=== PATIENT | male | born 1950 | race Caucasian/White ===

== ENCOUNTER 2022-10-28 22:06 | Inpatient (IN) | payer MEDICARE, OTHER, SELFPAY ==
--- NOTE | ~2022-10-28 | CT_ITS ---
EXAMINATION: CT ABDOMEN AND PELVIS WITH AND WITHOUT CONTRAST: CT GI BLEEDING STUDY CLINICAL INFORMATION: rectal bleeding s/p polyp removal 5 days ago COMPARISON: No pertinent prior studies are available for comparison. TECHNIQUE: Multidetector volumetric imaging was performed from the lung bases to the pubic symphysis before and after the administration of: Intravenous contrast: 100 mL Omnipaque 350 arterial phase and 2 minute delayed postcontrast images were obtained. No contrast reaction reported. This CT examination was performed using dose optimization techniques as appropriate, variously including the following: *Automated exposure control *Adjustment of mA and/or kV according to patient size (this includes techniques or standardized protocols for targeted exams where dose is matched to indication/reason for exam; i.e. extremities or head) *Use of iterative reconstruction technique FINDINGS: STOMACH: Large volume of fluid and ingested material within the stomach. No abnormal contrast accumulation. SMALL BOWEL: There is wall thickening of the small bowel in the left abdomen, of uncertain clinical significance. This could be secondary to ascites. It may also represent a normal appearance of collapsed jejunum. Hypoproteinemic states could give this appearance as well. No abnormal contrast accumulation within the small bowel to suggest active small bowel hemorrhage at the time of the scan. COLON: Moderate volume of stool in the proximal colon. There is high density fluid in the sigmoid colon and rectum measuring 50 Hounsfield units precontrast. Acute hemorrhage could have this appearance but ingested material could give this appearance as well. There is streak artifact from linear metallic clip in the rectum presumably the site of prior polypectomy. Scattered colonic diverticula are present. No evidence of acute diverticulitis. On the arterial phase images, there is multifocal lobular mucosal enhancement particularly of the anterior wall of the distal rectum extending along the anus. The appearance and distribution are typical for hemorrhoids particularly given other findings of cirrhosis and portal hypertension. On delayed images the enhancement is less well-defined but there is no clear intraluminal pooling of contrast to suggest active bleeding at the time of the scan. LUNG BASES: No focal consolidation or mass. Right gynecomastia. Normal heart size. PLEURA: Small left pleural effusion. LIVER, GALLBLADDER, AND BILIARY TREE: Shrunken in nodular liver consistent with cirrhosis. There are a few nonspecific areas of low density. The gallbladder is distended with dependent gallstones. Moderate to large volume of ascites is present throughout the abdomen and dependently in the pelvis. PANCREAS: Normal; no mass or surrounding fluid. SPLEEN: Normal size. No focal lesion. ADRENAL GLANDS: Normal; no mass. KIDNEYS AND URETERS: Symmetric bilateral renal enhancement. No hydronephrosis, calculi, or solid mass. ABDOMINAL WALL: There is a fluid-filled right inguinal hernia with the right inguinal canal dilated to 5.7 cm transversely. LYMPHOVASCULAR STRUCTURES: Normal caliber aorta with moderate calcified atherosclerotic changes. 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 There is a spontaneous left splenorenal shunt. No portal vein thrombosis seen. The splenic vein is patent. There is a small recanalized paraumbilical vein. There are splenic and gastric varices. There are anterior abdominal omental varices. BLADDER: No focal mass or wall thickening seen. No bladder calculi. PELVIC VISCERA: Unremarkable. OSSEOUS STRUCTURES: No acute or suspicious osseous abnormality. CT/CT gi bleed abd pel wo/w IVcon IMPRESSION: No accumulation of contrast within the lumen of the bowel to suggest active GI bleeding at the time of the scan. Marked findings of cirrhosis and portal hypertension with moderate to large volume of ascites and extensive varices. There is mucosal enhancement of the distal rectum extending along the anal canal as well. The appearance and distribution particularly in the setting of cirrhosis and portal hypertension suggest hemorrhoids. Presumably these were visible on the prior colonoscopy. Recommend correlation with prior colonoscopy results. Nevertheless, no extravasated intraluminal contrast is visible. There is a metallic clip in the left posterior rectum which is presumably from the prior polypectomy. There is high density fluid in the sigmoid colon and rectum. The density could be seen with blood products but other material could have this appearance as well. Nonspecific small bowel wall thickening could be secondary to the ascites or low albumin among other etiologies. Given the patient's cirrhosis, screening for hepatocellular carcinoma with contrast-enhanced CT or MRI should be considered when the patient's acute clinical issues have improved.
[2022-10-28 22:20] VITALS: BP 122/81; BP 90/75; PULSE 109; PULSE 123; RESP 17; TEMP 37.2; O2SAT 96; O2SAT 97; BMI 23.7
--- NOTE | 2022-10-28 22:26 | ECG_ITS ---
Test Reason : cp Blood Pressure : / mmHG Vent. Rate : 113 BPM Atrial Rate : 113 BPM P-R Int : 138 ms QRS Dur : 064 ms QT Int : 316 ms P-R-T Axes : 021 -21 024 degrees QTc Int : 433 ms Sinus tachycardia Low voltage QRS Inferior infarct , age undetermined Abnormal ECG No previous ECGs available Referred By: Stacie Jacobs Electronically Signed By:JAMES BENNETT
[2022-10-28] MEDS: 0.9 % Sodium Chloride 1,000 ML 999 ML IVCONT (22:32)
--- NOTE | 2022-10-28 22:34 | ED.GIBLEED ---
HPI - GI Bleed General Chief complaint: GI Bleed Stated complaint: Rectal Bleed Time Seen by Provider: 10/28/22 22:16 Source: patient Mode of arrival: EMS Limitations: no limitations History of Present Illness HPI Narrative: Patient comes to the emergency room via ambulance complaining of rectal bleeding. He patient states that approximately 4 days ago, patient had a colonoscopy done a [facility]. Patient states that the polyp was found, had some gage and was discharged home. Patient states that he has been doing well for the last 4 days. This afternoon, patient was at home, thought that he had diarrhea, went to the bathroom, patient did not pass any stool, however he was having rectal bleeding. Patient states it lasted approximately 10-15 minutes of continued dripping. Patient denies any history of hemorrhoids. Patient eyes any abdominal pain. Patient reports that when EMS got to him, when he stood up trying to move into the stretcher, he had a syncopal/near syncopal episode for a few seconds. Patient denies being on any blood thinners. At this time, patient states that he feels relatively well, no dizziness, no chest pain or shortness of breath, no abdominal pain, no rectal pain. Related Data Allergies Allergy/AdvReac Type Severity Reaction Status Date / Time No Known Allergies Allergy Verified 10/28/22 22:26 Review of Systems Review of Systems: Constitutional : No Weight loss, No Fever, No Chills, No Night Sweats, No Fatigue, No Malaise ENT/Mouth : No Hearing loss, No Ear Pain, No Nasal Congestion, No Sinus Pain, No Hoarseness, No sore throat, No Rhinorrhea, No Swallowing Difficulty Eyes: No Eye Pain, No Swelling, No Redness, No Foreign Body, No Discharge, No Vision Changes Cardiovascular : No Chest Pain, No SOB, No Dyspnea on Exertion, No Orthopnea, No Edema, No Palpitations, complaining of a near syncopal/syncopal episode. Respiratory : No Cough, No Sputum, No Wheezing, No Smoke Exposure, No Dyspnea Gastrointestinal : No Nausea, No Vomiting, No Diarrhea, No Constipation, No abdominal Pain, complaining of profuse rectal bleeding Genitourinary : no irregular bleeding, No Dysuria, No Urinary Frequency, No Hematuria, No Urinary Incontinence, No Urgency, No Flank Pain, No Urinary Flow Changes, No Hesitancy Musculoskeletal : No joint pain, No Myalgias, No Joint Swelling Skin : No Skin Lesions, No rash Neuro : No Weakness, No Numbness, No Paresthesias, No Loss of Consciousness, No Dizziness, No Headache Psych : No Anxiety/Panic, No Depression, No SI/HI/AH/VH, No Social Issues, Heme/Lymph: No Bruising, No Bleeding,No Lymphadenopathy Endocrine : No Polyuria, No Polydipsia, No Temperature Intolerance [facility] Past Medical History Medical History Alcohol abuse Cirrhosis Social History Social History Alcohol intake: current Alcohol intake frequency: a few times a week Alcohol type: wine Smoked in Last 30 Days: No Use of substances other than those prescribed or required for medical reasons: No Advance Directives: Yes Advance Directives Information Provided: No Advance Directives on File: No Physical Exam Vital Signs: Vital Signs: Last Vital Signs Temp 98.9 F 10/28/22 22:20 Pulse 115 H 10/29/22 01:01 Resp 19 10/29/22 01:01 BP 142/85 H 10/29/22 01:01 Pulse Ox 97 10/29/22 01:01 O2 Del Method 10/29/22 01:01 BMI result Body Mass Index 23.7 Const: Other: Appearance: Alert. Oriented X3. No acute distress. Eyes: Pupils equal, round and reactive to light. ENT: Pharynx normal. Neck: Normal inspection. Neck supple. No lymph nodes noted. No crepitus CVS: Tachycardic in the 110s, regular rhythm. Pulses normal. Normal S1 and S2 Respiratory: No respiratory distress. Breath sounds normal. No Wheezing. No rales Abdomen: Soft , nontender, slightly distended, no rigidity. On digital rectal exam, patient had fresh blood per rectum, no external hemorrhoids, low suspicion for internal hemorrhoids Skin: Skin warm and dry. Normal skin color. Normal skin turgor. Extremities: No lower extremity edema. No Lacerations. No Rash Neuro: Oriented X 3. No motor deficit. No sensory deficit. Moving all extremities. No slurred speech. CN 2 through 12 grossly intact Psych: calm, cooperative, normal affect Course Course Course Narrative: All of patient's labs and imaging are pending, on physical exam, there was bright red blood per rectum. At this time, patient is asymptomatic. I discussed the patient with Dr. Arboleda, recommendations: 10 mg IV vitamin K, 2 units of fresh frozen plasma, and 1 unit of packed red blood cells. I discussed with the patient the risks versus benefits of a blood transfusion. Patient is agreeable to receive blood. Patient states that several years ago when he had an ulcer, he received up to 8 units of blood. Medications Administered Discontinued Medications Generic Name Dose Route Start Last Admin Trade Name Freq PRN Reason Stop Dose Admin Sodium Chloride 1,000 mls @ 999 mls/hr 10/28/22 22:26 10/28/22 23:34 Ns IVCONT 10/28/22 23:26 Infused .Q1H1M ONE Infusion Iohexol 80 ml 10/29/22 00:05 10/29/22 00:13 Iohexol 350 Mg/Ml 100 Ml Infus..Btl IV 10/29/22 00:06 80 ml ONCE ONE Administration Medical Decision Making Medical Decision Making Differential Diagnoses: Differential diagnosis (Lower GI bleed, internal hemorrhoids) Consideration of admission/observation: Consideration of Admission/Observation (Patient had a near syncopal episode, and a GI bleed. I discussed with the patient that I recommend admission, patient and his agreeable with plan) Discussion of management with other physician/healthcare provider/other source (e.g., hospitalist, product support consultant, behavioral health): Discussion w/other physician/healthcare provider (I discussed the patient with Dr. Ponce, we both agree that patient would benefit from a blood transfusion, furthermore, Dr. Arboleda recommends given 2 units of fresh frozen plasma, 10 units of vitamin K IV) Management of the patient was discussed with: Hospitalist (I also discussed with Dr. Jacobs physician with Dr. Arboleda, patient to be admitted.) and [employer] My interpretation is Lab Attestation: I reviewed the patient's lab results. (Patient's hemoglobin dropped from 14.1 from May of 2022 from [facility] records down to 10.8, INR is 1.5, elevated likely secondary to alcoholism) Independent interpretation of EKG, rhythm strip, radiology study: Independent interp EKG,rhythm strip, radiology study I performed an independent interpretation of the: EKG My interpretation is sinus tachycardia, heart rate 113, no ST segment depression or elevation, no T-wave inversion, QTC 433 Non-ED record review: Review of External (Non-ED) Record External record reviewed:: Outpatient record (We received records from [facility], I reviewed personally the records, patient's last hemoglobin was 14, dropped 4 points since May. We also have the gastroenterology report available) Critical Care Time Critical Care Time Critical Care Time: Yes Total Critical Care Time: 60 Attestation: I have personally provided critical care time. Time includes review of lab data, radiology results, discussion with consultants, and monitoring for potential decompensation. Intervention performed as documented. Discharge Plan Discharge Clinical Impression: Lower gastrointestinal hemorrhage, Anemia Patient Disposition: Admitted As Inpatient
--- NOTE | 2022-10-28 22:38 | PC.NURSE ---
Witnessed Dr Watkins perform rectal exam.
[2022-10-28 23:00] LABS: OBS Int Ctl Valid YES; OBS1 POSITIVE (NEGATIVE)
[2022-10-28 23:00] LABS: Basophils Absolute Auto 0.2 X10*3/uL (0.0-0.2); Basophils Percent Auto 1.3 % (0-2); Eosinophils Absolute Auto 0.2 X10*3/uL (0.0-0.4); Eosinophils Percent Auto 1.3 % (0-4); Hematocrit 30.5 % (42.0-52.0); Hemoglobin 10.8 g/dl (14.0-18.0); Imm Gran Abs Auto 0.06 X10*3/uL (0.00-0.03); Imm Gran Pct Auto 0.5 % (0.0-0.4); Lymphocytes Absolute Auto 1.1 X10*3/uL (1.2-4.9); Lymphocytes Percent Auto 8.5 % (20-40); MANUAL DIFF FLAG SCAN; Mean Corpuscular HGB Conc 35.4 g/dl (31.0-36.0); Mean Corpuscular Hemoglobin 34.4 pg (27.0-33.0); Mean Corpuscular Volume 97.1 fL (80.0-98.0); Mean Platelet Volume 9.7 fL (9.4-12.4); Monocytes Absolute Auto 1.9 X10*3/uL (0.1-1.2); Monocytes Percent Auto 14.3 % (2-11); Neutrophils Absolute Auto 9.6 x10*3/uL (2.0-8.3); Neutrophils Percent Auto 74.1 % (45-73); Platelet Count 228 X10*3/uL (160-400); Red Blood Count 3.14 X10*6/uL (4.60-5.80); Red Cell Distribution Width 12.7 % (11.0-16.0); SCAN SMEAR FLAG 1; White Blood Count 12.9 X10*3/uL (4.8-10.8)
[2022-10-28 23:05] LABS: INTERNATIONAL NORM RATIO 1.5 (0.9-1.1); Prothrombin Time 17.6 SEC (10.0-13.1)
[2022-10-28 23:13] LABS: COVID-19 Test Negative (Negative); IDNOW Serial# 55D5AD1C
[2022-10-28 23:15] LABS: Ethanol 186 mg/dL
[2022-10-28 23:20] LABS: SLIDE REVIEW VERIFIED
[2022-10-28 23:21] LABS: Alanine Aminotransferase 23 U/L (0-40); Albumin Level 2.9 g/dL (3.5-5.0); Alkaline Phosphatase 162 U/L (39-117); Anion Gap 14 (12-20); Aspartate Amino Transferase 58 U/L (5-37); Bilirubin Direct 1.7 mg/dL (0.0-0.5); Blood Urea Nitrogen 15 mg/dL (9-16); Calcium 8.5 mg/dL (8.4-10.2); Carbon Dioxide 19 mmol/L (22-29); Chloride 104 mmol/L (96-108); Creatinine Clr Calc Pharmacy 84.1; Estimated Glomerular Filt Rate > 60; Glucose Random 119 mg/dL (60-115); Lipase 63 U/L (8-78); Magnesium 1.6 mg/dL (1.6-2.6); Potassium 4.4 mmol/L (3.3-5.1); Sodium 133 mmol/L (135-145); Total Protein 6.6 g/dL (6.5-8.0)
[2022-10-28 23:25] LABS: Troponin-I High Sensitivity 3.7 ng/L (<3.5-35.0)
[2022-10-29] VITALS (18 sets, daily range): BP systolic 116–142; BP diastolic 50–85; PULSE 86–133; RESP 12–19; TEMP 36.4–37.7; O2SAT 94–97; BMI 24.0
--- NOTE | 2022-10-29 | ECG_ITS ---
Test Reason : TACHYCARDIA Blood Pressure : / mmHG Vent. Rate : 102 BPM Atrial Rate : 102 BPM P-R Int : 168 ms QRS Dur : 072 ms QT Int : 352 ms P-R-T Axes : 047 -12 034 degrees QTc Int : 458 ms Sinus tachycardia Low voltage QRS Cannot exclude old inferior infarct Borderline ECG No significant changes when compared with the previous EKG of 28 oct 2022 Referred By: Stacie Jacobs Electronically Signed By:JAMES BENNETT
[2022-10-29] MEDS: iohexoL 350 MG/ML 100 ML INFUS..BTL 80 ML IV (00:13)
--- OUTSIDE RECORDS SUMMARY | 2022-10-29 00:27 | XMS_ITS | Continuity of Care Document ---
:1950 Author Organization Address [address] [place] [id number]- Care Team Providers Name Role Phone Jeff FLOYD, Ashutosh Delcid Primary Care Physician Encounter [facility] [place] Date(s): 11/20/19 - 11/24/[address] [address]- [facility] Encounter Diagnosis Sinus tachycardia (Final) - 11/19/19 GI bleed (Final) - 11/21/19 Discharge Disposition: A-D/C Home Attending Physician: Long Benedict MD Admitting Physician: Kate FLOYD, Gianfranco Conway Referring Physician: Not on Staff, Referring MD Allergies, Adverse Reactions, Alerts Substance Reaction Severity Status NKA Active Medications folic acid 1 mg oral tablet 1 mg, 1, tablet, By Mouth, Daily, # 30 tablet, Refills 0, Tot. Refills 0, Maintenance, 11/24/19 12:16:00 EST, Route to Pharmacy Electronically, [facility], 180, cm, 11/22/19 6:10:00 EST, Height, 77, kg, 11/20/19 3:52:00 EST, Dry Weight Start Date: 11/24/19 Status: OrderedLasix 40 mg oral tablet 40 mg, 1, tablet, By Mouth, Every other day, # 30 tablet, Refills 0, Maintenance, 11/19/19 20:09:00 EST Start Date: 11/19/19 Status: Orderedmultivitamin Multiple Vitamins oral tablet, chewable 1 tablet, By Mouth, Daily, # 90 tablet, 0 Refills, Maintenance, 11/24/19 12:16:00 EST, Chew Tablet, [facility], 1 tablet By Mouth Daily, 180, cm, 11/22/19 6:10:00 EST, Height, 77, kg, 11/20/19 3:52:00 EST, Dry Weight Start Date: 11/24/19 Status: Orderedpantoprazole 40 mg oral delayed release tablet = 40 mg, By Mouth, 2 times a day, # 60 tablet, 0 Refills, Maintenance, 11/24/19 12:16:00 EST, EC Tablet, 180, cm, 11/22/19 6:10:00 EST, Height, 77, kg, 11/20/19 3:52:00 EST, Dry Weight Start Date: 11/24/19 Status: OrderedTaltz Autoinjector 80 mg/mL subcutaneous solution = 160 mg, Subcutaneous Injection, Once, # 2 mL, 0 Refills, Maintenance, 11/19/19 20:09:00 EST, Solution Start Date: 11/19/19 Status: Orderedthiamine 100 mg oral tablet 100 mg, 1, tablet, By Mouth, Daily, # 90 tablet, Refills 0, Tot. Refills 0, Maintenance, 11/24/19 12:16:00 EST, Route to Pharmacy Electronically, [facility], 180, cm, 11/22/19 6:10:00 EST, Height, 77, kg, 11/20/19 3:52:00 EST, Dry Weight Start Date: 11/24/19 Status: Ordered Results Orders for Microbiology Reports Name Date Anaerobic Culture 11/22/19 Sterile Body Fluid Culture W/ Gram Smear 11/22/19 Microbiology Reports TEST:Anaerobic Culture STATUS:Unauthenticated BODY SITE: SOURCE:BODY F COLLECTED DATE/TIME:11/22/19 9:00 PMAnaerobic Culture SPECIMEN DESCRIPTION : BODY FLUID PERITONEUM SPECIAL REQUESTS : NONE CULTURE : NO ANAEROBES ISOLATED SO FAR. REPORT STATUS : PRELIMINARY REPORT TEST:Sterile Fluid Culture STATUS:Unauthenticated BODY SITE: SOURCE:[place] COLLECTED DATE/TIME:11/22/19 9:00 PMSterile Fluid Culture SPECIMEN DESCRIPTION : Peritoneal fluid SPECIAL REQUESTS : NONE GRAM STAIN : 2+ POLYMORPHONUCLEAR LEUKOCYTES NO ORGANISMS SEEN CULTURE : NO GROWTH TO DATE REPORT STATUS : PRELIMINARY REPORT Radiology Reports Exam Date Time Procedure Performing Provider Status 11/19/19 11:28 PM Chest 2 Views Frontal and Lat Cisco Higgins; Auth (Verified) Notes:(Chest 2 Views Frontal and Lat) Reason For Exam: Abdominal PainRESULT: Chest 2 Views Frontal and Lat Chest 2 Views Frontal and Lat Reason: Abdominal Pain; Clinical Question(s): Other:; Abd Free Air; Hx of Present Illness: HAD COLONOSCOPY WITH POLEP REMOVAL TODAY , NOW HAS RECTAL BLEEDING AND CRAMPING . ALSO FEELS LIGHTHEADED; Other Objective Findings: ALERT, SKIN W D SLIGHTLY SALLOW. SPEAKING IN FULL SENTENCES. ABD SOFT TENDER LOWER ABD LIKE GAS DENIES N V D. . DENIES FEVER CHILLS COMPARISON: None. FINDINGS: LINES AND TUBES: None. LUNGS AND PLEURA: Clear lungs. Normal pulmonary vascularity. No pleural effusion. No pneumothorax. HEART, MEDIASTINUM AND CALLUM: Heart is normal in size. Normal mediastinal and hilar contour. BONES AND SOFT TISSUES: No acute abnormality. There is mild thoracic disc space narrowing. No pneumoperitoneum. IMPRESSION: No acute abnormality. No pneumoperitoneum. WSN: [id number] Dictated By: Coy Lewis MD Dictated Date/Time: 11/19/19 11:38 p Reviewed By: Coy Lewis MD Signed By: Coy Lewis MD Signed Date/Time: 11/19/19 11:38 pm Transcribed By: REBA Transcribed Date/Time: 11/19/19 11:38 pm Vital Signs Most recent to oldest 1 2 3 [Reference Range]: Height 180 cm 180 cm 180 cm (11/22/19 6:10 AM) (11/21/19 11:50 PM) (11/20/19 5:15 AM) Weight 85.8 kg 77 kg 80.4 kg (11/21/19 11:50 PM) (11/20/19 3:52 AM) (11/19/19 8:1 2 PM) Oxygen Saturation [94-100 %] 99 % 98 % 99 % (11/24/19 7:00 AM) (11/24/19 4:00 AM) (11/23/19 11:00 PM) Pulse Rate [55-90 bpm] 75 bpm 88 bpm 89 bpm (11/24/19 7:00 AM) (11/24/19 4:00 AM) (11/23/19 11:00 PM) Body Mass Index [18.5-24.99] 26.48 23.77 *H* (11/20/19 3:52 AM) (11/21/19 11:50 PM) Blood Pressure [90-138/55-84 117/66 mm Hg 103/64 mm Hg 114 /72 mm Hg mm Hg] (11/24/19 7:00 AM) (11/24/19 4:00 AM) (11/23/19 11:00 PM) Respiratory Rate [16-30 18 br/min 18 br/min 18 br/mi n br/min] (11/24/19 7:00 AM) (11/24/19 4:00 AM) (11/23/19 11:00 PM) Temperature [96.8-100.4 97.6 DegF 98.3 DegF 99.2 Deg F DegF] (11/24/19 7:00 AM) (11/24/19 4:00 AM) (11/23/19 11:00 PM) Liters per Minute 4 L/min 4 L/min (11/22/19 5:00 PM) (11/22/19 4:03 PM) Mode of Delivery (Oxygen) Room air Room air Room a ir (11/24/19 7:00 AM) (11/24/19 4:00 AM) (11/23/19 11:00 PM) Blood pressure sites Arm, left Arm, right Arm, right (11/23/19 4:00 PM) (11/23/19 2:00 PM) (11/23/19 1:00 P M) Temperature Route Oral Oral Oral (11/24/19 7:00 AM) (11/24/19 4:00 AM) (11/23/19 11:00 PM) Dry Weight 77 kg 80.4 kg (11/20/19 3:52 AM) (11/19/19 8:12 PM) Weight Obtained Via Bed scale Standing scale (11/21/19 11:50 PM) (11/19/19 8:12 PM) Dry Weight Obtained Via Standing scale (11/19/19 8:12 PM) Sensory deficits None (11/20/19 3:52 AM) Mobility assistance Independent Independent Independent (11/23/19 7:29 AM) (11/23/19 7:00 AM) (11/22/19 8:00 P M)
--- OUTSIDE RECORDS SUMMARY | 2022-10-29 00:27 | XMS_ITS | Continuity of Care Document ---
:1950 Author Organization [facility] Address [address] [place] [id number]- Care Team Providers Name Role Phone Jeff FLOYD, Ashutosh Delcid Primary Care Physician Encounter [facility] [place] Date(s): 11/19/19 - 11/19/[address] [address] [facility] Discharge Disposition: A-D/C Home Attending Physician: Devang Mckeon MD Admitting Physician: Devang Mckeon MD Referring Physician: Devang Mckeon MD Allergies, Adverse Reactions, Alerts Substance Reaction Severity Status NKA Active Medications Lasix 40 mg oral tablet 40 mg, 1, tablet, By Mouth, Daily, # 30 tablet, Refills 0, Maintenance, 11/19/19 20:09:00 EST Start Date: 11/19/19 Status: Orderedomeprazole 20 mg oral enteric coated capsule 1 capsule = 20 mg, By Mouth, Daily, # 30 capsule, 0 Refills, Maintenance, 11/19/19 20:09:00 EST, EC Capsule Start Date: 11/19/19 Status: OrderedTaltz Autoinjector 80 mg/mL subcutaneous solution = 160 mg, Subcutaneous Injection, Once, # 2 mL, 0 Refills, Maintenance, 11/19/19 20:09:00 EST, Solution Start Date: 11/19/19 Status: Ordered Procedures Procedure Date Related Diagnosis Body Site Status Endoscopy of upper gastrointestinal 11/19/19 Completed tract and excision of polyp of duodenum Results Radiology Reports Exam Date Time Procedure Performing Provider Status 11/19/19 8:49 AM ERCP Both Ducts Eva Foss (Verified) Notes:(ERCP Both Ducts) Reason For Exam: ampullary villous adenomaRESULT: ERCP Both Ducts ERCP Both Ducts INDICATION/CLINICAL QUESTION: Reason: ampullary villous adenoma . COMPARISON: None TT:15 minutes FT: 0.2 seconds DAP: 0.6 mGy Total images: 1 TECHNIQUE: Intraprocedural spot radiographs were performed during ERCP performed by the gastroenterology service. No radiologist was in attendance FINDINGS: Shuttle Operator image was obtained and the procedure was terminated per ordering physician. IMPRESSION: ERCP was terminated per ordering physician. No radiologist was in attendance. Please see full ERCP report by the gastroenterology service for further details. I have personally reviewed the images and I agree with this report. WSN: [id number] Dictated By: Nneka Ovalle MD Dictated Date/Time: 11/19/19 9:54 am Reviewed By: Tuan Fox MD Signed By: Tuan Fox MD Signed Date/Time: 11/19/19 9:59 am Transcribed By: REBA Transcribed Date/Time: 11/19/19 9:13 am Vital Signs Most recent to oldest 1 2 3 [Reference Range]: Height 182.9 cm (11/19/19 7:41 AM) Weight 76.2 kg (11/19/19 7:41 AM) Oxygen Saturation [94-100 %] 99 % 99 % 99 % (11/19/19 9:41 AM) (11/19/19 9:36 AM) (11/19/19 9:20 AM) Pulse Rate [55-90 bpm] 80 bpm (11/19/19 7:41 AM) Body Mass Index [18.5-24.99] 22.78 (11/19/19 7:41 AM) Blood Pressure [90-138/55-84 160/89 mm Hg 159/88 mm Hg 164 /84 mm Hg mm Hg] *H* *H* *H* (11/19/19 9:41 AM) (11/19/19 9:36 AM) (11/19/19 9:20 AM) Respiratory Rate [16-30 16 br/min 16 br/min 20 br/mi n br/min] (11/19/19 9:41 AM) (11/19/19 9:36 AM) (11/19/19 9:20 AM) Temperature [96.8-100.4 98.1 DegF 97.9 DegF DegF] (11/19/19 9:20 AM) (11/19/19 7:41 AM) Mode of Delivery (Oxygen) Room air Room air (11/19/19 9:20 AM) (11/19/19 7:41 AM) Temperature Route Temporal (11/19/19 7:41 AM)
[2022-10-29 00:48] LABS: Hematocrit 27.1 % (42.0-52.0); Hemoglobin 9.6 g/dl (14.0-18.0)
[2022-10-29 00:54] LABS: Bilirubin Total 2.9 mg/dL (0.0-1.0)
[2022-10-29] MEDS: Phytonadione (Vit K1) 10 MG in 0.9 % Sodium Chloride 50 ML 51 MG IV (02:00)
[2022-10-29] MEDS: Thiamine HCL 100 MG in 0.9 % Sodium Chloride 100 ML 202 MG IV (02:16)
--- NOTE | 2022-10-29 02:50 | P.HPHOSP_ITS ---
History of Present Illness Date of Service: 10/29/22 Chief Complaint: GI bleed This is a 72-year-old male with pertinent history of alcohol use disorder with alcoholic cirrhosis who presents to the emergency department for evaluation of acute lower GI bleed. He had a colonoscopy on 10/24 when polypectomy was done. On the day of presentation, patient started having painless lower GI bleed. He saw bright red blood passing through rectum. Minimal abdominal discomfort. No fever, chills, chest discomfort, palpitation, shortness of breath, changes in urinary habits. Drank 2 glasses of wine on the day of presentation. No history of alcohol withdrawal. Patient states when EMS came and he tried to get up from seated position, he had dizziness/lightheadedness and almost passed out. Not on any blood thinners. Review of Systems ENT: Reports dizziness Cardiovascular: Cardiovascular: Reports no additional cardiovascular complaints Respiratory: Respiratory: Reports no additional respiratory complaints Gastrointestinal: Gastrointestinal: Reports hematochezia Genitourinary: Genitourinary: Reports no additional male genitourinary complaints Neurologic: Reports dizziness [facility] Medical History Alcohol abuse Cirrhosis Pertinent family history: No known medical history in family members Social History Alcohol intake: current Alcohol intake frequency: a few times a week Alcohol type: wine Smoked in Last 30 Days: No Use of substances other than those prescribed or required for medical reasons: No Advance Directives: Yes Advance Directives Information Provided: No Advance Directives on File: No Meds Allergies Allergy/AdvReac Type Severity Reaction Status Date / Time No Known Allergies Allergy Verified 10/28/22 22:26 Active Medications: Current Medications Folic Acid (Folic Acid 1 Mg Tablet) 1 mg PO DAILY MAX Thiamine HCl 100 mg/ Sodium (Chloride) 101 mls @ 202 mls/hr IV DAILY MAX Last Admin: 10/29/22 02:16 Dose: 202 mls/hr Lactulose (Lactulose 20 Gm/30 Ml Solution) 20 gm PO BID MAX Melatonin (Melatonin 3 Mg Tablet) 6 mg PO BEDTIME PRN PRN Reason: Insomnia Ondansetron HCl (Ondansetron Hcl 4 Mg/2 Ml Vial) 4 mg IVPUSH Q8H PRN PRN Reason: Nausea and Vomiting Pharmacy Consult (Consult Rx Perform Med Rec) 1 each MISCELLANE ONCE PRN PRN Reason: Consult order Sodium Chloride (0.9 % Sodium Chloride Flush 3 Ml Syringe) 3 ml IVFLUSH QSHIFT [facility] Physical Exam Vital Signs and Narrative: Vital Signs: Last Vital Signs Temp 98.3 F 10/29/22 02:35 Pulse 105 H 10/29/22 02:35 Resp 12 10/29/22 02:35 BP 133/74 10/29/22 02:35 Pulse Ox 97 10/29/22 01:01 O2 Del Method 10/29/22 01:01 BMI result Body Mass Index 23.7 Middle-aged male lying in bed in no distress Neck supple, no JVD Tachycardic with regular rhythm, S1-S2 heard Regular breath sounds bilaterally, no wheezing or crackles appreciated Abdomen soft nontender, no guarding, no rigidity Patient is awake, alert and oriented to self, place, time and person ; no focal motor deficit Psych: Normal mood No pedal edema Results Labs CBC and Chem 7: 10/29/22 00:36 10/28/22 22:40 Labs: Laboratory Results - last 24 hr 10/28/22 10/28/22 10/28/22 22:40 22:40 22:40 MCV 97.1 MCH 34.4 H MCHC 35.4 RDW 12.7 Plt Count 228 MPV 9.7 Immature Gran % (Auto) 0.5 H Neut % (Auto) 74.1 H Lymph % (Auto) 8.5 L Hardin % (Auto) 14.3 H Eos % (Auto) 1.3 Baso % (Auto) 1.3 Lymph # (Auto) 1.1 L Hardin # (Auto) 1.9 H Eos # (Auto) 0.2 Baso # (Auto) 0.2 Abs Immat Gran (auto) 0.06 H Absolute Neuts (auto) 9.6 H Absolute Nucleated RBC 0.000 Nucleated RBC % (auto) 0.0 Smear Tech's Comments VERIFIED PT 17.6 H INR 1.5 H Anion Gap 14 Estim Creat Clear Calc 84.1 Estimated GFR > 60 Random Glucose 119 H Calcium 8.5 Magnesium 1.6 Total Bilirubin 2.9 H Direct Bilirubin 1.7 H AST 58 H ALT 23 Alkaline Phosphatase 162 H Troponin I High Sens Total Protein 6.6 Albumin 2.9 L Lipase 63 Stool Occult Blood Ethyl Alcohol COVID-19 (VENESSA) COVID-19 Clin Com Blood Type Antibody Screen Crossmatch 10/28/22 10/28/22 10/28/22 22:40 22:40 22:40 MCV MCH MCHC RDW Plt Count MPV Immature Gran % (Auto) Neut % (Auto) Lymph % (Auto) Hardin % (Auto) Eos % (Auto) Baso % (Auto) Lymph # (Auto) Hardin # (Auto) Eos # (Auto) Baso # (Auto) Abs Immat Gran (auto) Absolute Neuts (auto) Absolute Nucleated RBC Nucleated RBC % (auto) Smear Tech's Comments PT INR Anion Gap Estim Creat Clear Calc Estimated GFR Random Glucose Calcium Magnesium Total Bilirubin Direct Bilirubin AST ALT Alkaline Phosphatase Troponin I High Sens 3.7 Total Protein Albumin Lipase Stool Occult Blood Ethyl Alcohol 186 COVID-19 (VENESSA) Negative COVID-19 Clin Com See Note Blood Type Antibody Screen Crossmatch 10/28/22 10/28/22 22:49 22:49 MCV MCH MCHC RDW Plt Count MPV Immature Gran % (Auto) Neut % (Auto) Lymph % (Auto) Hardin % (Auto) Eos % (Auto) Baso % (Auto) Lymph # (Auto) Hardin # (Auto) Eos # (Auto) Baso # (Auto) Abs Immat Gran (auto) Absolute Neuts (auto) Absolute Nucleated RBC Nucleated RBC % (auto) Smear Tech's Comments PT INR Anion Gap Estim Creat Clear Calc Estimated GFR Random Glucose Calcium Magnesium Total Bilirubin Direct Bilirubin AST ALT Alkaline Phosphatase Troponin I High Sens Total Protein Albumin Lipase Stool Occult Blood POSITIVE Ethyl Alcohol COVID-19 (VENESSA) COVID-19 Clin Com Blood Type AB Positive Antibody Screen NEGATIVE Crossmatch See Detail Imaging Radiologist's Impressions: Impressions Abdomen/Pelvis CT 10/29/22 00:05 IMPRESSION: No accumulation of contrast within the lumen of the bowel to suggest active GI bleeding at the time of the scan. Marked findings of cirrhosis and portal hypertension with moderate to large volume of ascites and extensive varices. There is mucosal enhancement of the distal rectum extending along the anal canal as well. The appearance and distribution particularly in the setting of cirrhosis and portal hypertension suggest hemorrhoids. Presumably these were visible on the prior colonoscopy. Recommend correlation with prior colonoscopy results. Nevertheless, no extravasated intraluminal contrast is visible. There is a metallic clip in the left posterior rectum which is presumably from the prior polypectomy. There is high density fluid in the sigmoid colon and rectum. The density could be seen with blood products but other material could have this appearance as well. Nonspecific small bowel wall thickening could be secondary to the ascites or low albumin among other etiologies. Given the patient's cirrhosis, screening for hepatocellular carcinoma with contrast-enhanced CT or MRI should be considered when the patient's acute clinical issues have improved. Assessment and Plan (1) Lower gastrointestinal hemorrhage: Status: Acute (2) Anemia: Status: Acute (3) Alcohol abuse: Status: Acute (4) Cirrhosis: Status: Acute Plan This is a 72-year-old male with pertinent history of alcohol use disorder with a lcoholic cirrhosis who presents to the emergency department for evaluation of acute lower GI bleed. #. Acute GI bleed: Will admit with cardiac rn. Gastroenterology was consulted from the ER, appreciate assistance. Vitamin K, IV crystalloids given in the ER. Ordered FFP and 1 unit PRBC as per GI recommendations. Will keep NPO #. Presyncope in the setting of above #. Acute blood loss anemia: Closely monitor H&H #. Reactive leukocytosis #. Alcoholic cirrhosis: Will need paracentesis for ascites. Hold spironolactone. Initiated lactulose. #. Alcohol use disorder: Initiating thymine and folic acid. Monitor CIWA. Consulted CARE team and Addiction Team #. Essential hypertension: Hold amlodipine and diuretics Med rec pending DVT prophylaxis: Mechanical. Lovenox contraindicated in the setting of GI bleed NPO Full code Admit as inpatient and will require two night minimum hospital stay for close monitoring of hemodynamic status. GI consult pending Time Spent With Patient Time: Total time managing care of this patient today ____ minutes. Quality Stroke Does the patient have a stroke diagnosis?: No VTE Prior VTE?: No VTE Risk Level:: Medical - moderate - high VTE Device Contraindication: N/A - Device Ordered VTE Drug Contraindication: Treatment Not Indicated
[2022-10-29] MEDS: ondansetron HCL 4 MG/2 ML VIAL IVPUSH (03:07)
--- NOTE | 2022-10-29 03:26 | PC.NURSE ---
Will administer FFPs as soon as blood transfusion and med administration (thiamine) is complete.
[2022-10-29] MEDS: Pantoprazole Sodium 40 MG/10 ML VIAL 80 MG IVPUSH (03:39)
--- NOTE | 2022-10-29 04:37 | PC.NURSE ---
Delay in transfusing FFPs. Due to needing assistance to verify that transfusion was being done correctly (patient safety).
--- NOTE | 2022-10-29 06:05 | PC.NURSE ---
Verified with blood bank ([facility]) that AB neg FFP compatible with AB pos.
--- NOTE | 2022-10-29 06:34 | PC.NURSE ---
Notified Dr Jacobs that pt's HR is as high as 133 and also informed hospitalist that patient just had some more rectal bleeding and BP 130/80. Hospitalist ordered EKG. EKG to follow. Will continue to monitor.
--- NOTE | 2022-10-29 06:51 | PC.NURSE ---
Patient denies pain. Patient c/o of slight nausea. Patient continues to be tachypneic.
[2022-10-29 06:55] LABS: MANUAL DIFF FLAG NO
[2022-10-29 07:01] LABS: Basophils Absolute Auto 0.1 X10*3/uL (0.0-0.2); Basophils Percent Auto 0.9 % (0-2); Eosinophils Absolute Auto 0.1 X10*3/uL (0.0-0.4); Eosinophils Percent Auto 0.9 % (0-4); Hematocrit 26.4 % (42.0-52.0); Hemoglobin 9.3 g/dl (14.0-18.0); Imm Gran Abs Auto 0.04 X10*3/uL (0.00-0.03); Imm Gran Pct Auto 0.4 % (0.0-0.4); Lymphocytes Absolute Auto 0.6 X10*3/uL (1.2-4.9); Lymphocytes Percent Auto 6.5 % (20-40); Mean Corpuscular HGB Conc 35.2 g/dl (31.0-36.0); Mean Corpuscular Hemoglobin 33.1 pg (27.0-33.0); Mean Platelet Volume 9.3 fL (9.4-12.4); Monocytes Absolute Auto 1.5 X10*3/uL (0.1-1.2); Monocytes Percent Auto 16.1 % (2-11); Neutrophils Percent Auto 75.2 % (45-73); Platelet Count 149 X10*3/uL (160-400); Red Blood Count 2.81 X10*6/uL (4.60-5.80); Red Cell Distribution Width 13.9 % (11.0-16.0); White Blood Count 9.3 X10*3/uL (4.8-10.8)
[2022-10-29 07:37] LABS: Anion Gap 13 (12-20); Blood Urea Nitrogen 15 mg/dL (9-16); Calcium 8.6 mg/dL (8.4-10.2); Carbon Dioxide 21 mmol/L (22-29); Chloride 105 mmol/L (96-108); Creatinine Clr Calc Pharmacy 93.8; Estimated Glomerular Filt Rate > 60; Glucose Random 114 mg/dL (60-115); Potassium 4.8 mmol/L (3.3-5.1); Sodium 134 mmol/L (135-145)
--- NOTE | 2022-10-29 07:41 | PC.NURSE ---
[place] [facility] [place]
--- NOTE | 2022-10-29 08:20 | PHA.MEDREC ---
Pharmacy Consult ? Medication Reconciliation Pharmacy has completed the medication reconciliation.
[2022-10-29] MEDS: Lactulose 20 GM/30 ML SOLUTION PO (09:48)
[2022-10-29] MEDS: Folic Acid 1 MG TABLET PO (09:48)
[2022-10-29] MEDS: 0.9 % Sodium Chloride Flush 3 ML SYRINGE IVFLUSH ×3 (09:49→21:08)
[2022-10-29 13:34] LABS: Basophils Absolute Auto 0.1 X10*3/uL (0.0-0.2); Basophils Percent Auto 1.3 % (0-2); Eosinophils Absolute Auto 0.2 X10*3/uL (0.0-0.4); Eosinophils Percent Auto 1.6 % (0-4); Hemoglobin 10.1 g/dl (14.0-18.0); Imm Gran Abs Auto 0.04 X10*3/uL (0.00-0.03); Imm Gran Pct Auto 0.4 % (0.0-0.4); Lymphocytes Absolute Auto 0.7 X10*3/uL (1.2-4.9); Lymphocytes Percent Auto 7.6 % (20-40); MANUAL DIFF FLAG SCAN; Mean Corpuscular HGB Conc 36.1 g/dl (31.0-36.0); Mean Corpuscular Volume 94.3 fL (80.0-98.0); Mean Platelet Volume 9.6 fL (9.4-12.4); Monocytes Absolute Auto 1.8 X10*3/uL (0.1-1.2); Monocytes Percent Auto 18.9 % (2-11); Neutrophils Absolute Auto 6.7 x10*3/uL (2.0-8.3); Neutrophils Percent Auto 70.2 % (45-73); Platelet Count 166 X10*3/uL (160-400); Red Blood Count 2.97 X10*6/uL (4.60-5.80); Red Cell Distribution Width 14.4 % (11.0-16.0); SCAN SMEAR FLAG 1; White Blood Count 9.5 X10*3/uL (4.8-10.8)
[2022-10-29 13:40] LABS: INTERNATIONAL NORM RATIO 1.3 (0.9-1.1); Prothrombin Time 15.6 SEC (10.0-13.1)
[2022-10-29 13:52] LABS: SLIDE REVIEW VERIFIED
--- NOTE | 2022-10-29 14:05 | PM.EVENT ---
Event Note Date of Service: 10/29/22 Event Note: GI Consult-Full note dictated-Histroy from patient, , daughter, his RN, and the EMR Imp: Post-polypectomy bleed in a cirrhotic who continues to drink EtOH. He has stabilized overnight with 1 u PRBC, 2 u FFP, and IV Vit K. No signs of UGI bleeding, SBP, nor encephalopathy. His Hgb and PT/INR are stable and improved as of this afternoon. He has had no significant nor active bleeding since arrival up to the floor. Rec: Continue to observe. Keep NPO for today. F/U labs closely. If remains stable will hold off on colonoscopy. If recurrent active bleeding he will need a repeat colonoscopy. Will hold further Lactulose for the time being. Can hold off on paracentesis unless he develops refractory ascites or signs of SBP. D/W patient and family in detail. They are comfortable with this plan. Thanks Time Spent With Patient Time: Total time managing care of this patient today ____ minutes.
[2022-10-29 19:55] LABS: Basophils Absolute Auto 0.1 X10*3/uL (0.0-0.2); Basophils Percent Auto 1.1 % (0-2); Eosinophils Absolute Auto 0.2 X10*3/uL (0.0-0.4); Eosinophils Percent Auto 1.8 % (0-4); Hematocrit 26.1 % (42.0-52.0); Hemoglobin 9.2 g/dl (14.0-18.0); Imm Gran Abs Auto 0.02 X10*3/uL (0.00-0.03); Imm Gran Pct Auto 0.2 % (0.0-0.4); Lymphocytes Absolute Auto 0.7 X10*3/uL (1.2-4.9); Lymphocytes Percent Auto 8.9 % (20-40); MANUAL DIFF FLAG SCAN; Mean Corpuscular HGB Conc 35.2 g/dl (31.0-36.0); Mean Corpuscular Hemoglobin 33.2 pg (27.0-33.0); Mean Corpuscular Volume 94.2 fL (80.0-98.0); Mean Platelet Volume 9.5 fL (9.4-12.4); Monocytes Absolute Auto 1.7 X10*3/uL (0.1-1.2); Monocytes Percent Auto 21.1 % (2-11); Neutrophils Absolute Auto 5.5 x10*3/uL (2.0-8.3); Neutrophils Percent Auto 66.9 % (45-73); Platelet Count 149 X10*3/uL (160-400); Red Blood Count 2.77 X10*6/uL (4.60-5.80); Red Cell Distribution Width 14.4 % (11.0-16.0); SCAN SMEAR FLAG 1; White Blood Count 8.2 X10*3/uL (4.8-10.8)
[2022-10-29] MEDS: Melatonin 3 MG TABLET 6 MG PO (21:49)
--- NOTE | 2022-10-29 23:17 | CONS_ITS ---
DATE OF SERVICE: 10/29/2022 REASON FOR CONSULTATION: Lower GI bleeding in relation to presumed post-polypectomy bleed. HISTORY OF PRESENT ILLNESS: This has been obtained for the patient, his , his daughter, his nurse, and the medical record. The patient is a 72-year-old male, who underwent a routine screening colonoscopy at [facility] with Dr. Cross on October 24. He had a small rectal polyp removed with a cold snare and a clip placed post polypectomy. He also had an upper endoscopy on that same day for followup of a previous duodenal polyp and his underlying cirrhosis. The report states that there were no varices and biopsies were obtained from the major ampulla.. In any event, he was well up until yesterday when developed the sudden onset of significant rectal bleeding with bright red blood and blood clots. This persisted with lightheadedness and apparent syncope prompting his ER visit. He was stabilized in the ER and transferred to the medical floor. In the ER, he did receive 1 unit of packed red blood cells, 2 units of FFP, and vitamin K. During this time, he has not had any abdominal pain, nausea, nor vomiting. He has not noticed any melena. He does not use any aspirin, NSAIDs, nor any other blood thinners. He does unfortunately continue to drink alcohol. He does not smoke. Since admission to the medical floor, he apparently has had some loose bowel movements, but reports that they are primarily brown with just small amounts of red blood at this point. He is receiving lactulose. He reports that there has been no further bleeding like he had yesterday. He denies any abdominal pain. He has been afebrile. MEDICATIONS: At home include amlodipine, Taltz injections, and spironolactone. PAST MEDICAL HISTORY: Alcohol-induced cirrhosis with continued alcohol use. He has had problems including ascites, but has had no previous history of GI bleeding. He does describe a paracentesis about a month ago at [facility]. He denies a history of encephalopathy, spontaneous bacterial peritonitis, nor previous GI bleeding. He describes history of a duodenal polyp(? ampullary) removed by Dr. Mckeon at [facility] about 3 years ago. He describes a postprocedure bleed that required angiography for control and an approximately 7-day hospitalization with associated transfusions. He has had previous colonoscopies as well as the colonoscopy just several days ago as described above. He does have a history of high blood pressure. He denies any history of AR, stroke, lung disease, nor kidney disease. He denies any significant surgeries. 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 He is . Alcohol as above. He does not smoke. FAMILY HISTORY: Noncontributory. REVIEW OF SYSTEMS: CONSTITUTIONAL: He had been feeling well up until yesterday when he developed the weakness and syncopal episode. CARDIAC: No chest pain. PULMONARY: No cough. No hemoptysis. GI: As above. URINARY: No dysuria. No hematuria. PHYSICAL EXAMINATION: GENERAL: The patient is a pleasant, alert, comfortable appearing male. SKIN: Warm and dry. Nonjaundiced. HEENT: Anicteric sclerae. NECK: Supple. CHEST: Clear. CARDIAC: Normal S1, S2. ABDOMEN: Soft and distended with ascites, but nontender. There is no palpable mass. The ascites is not tense. EXTREMITIES: Without edema. There is no asterixis. LABORATORY AND IMAGING DATA: On admission, his hemoglobin was 10.8 with a followup of 9.6, 9.3, and then 10.1 this afternoon. He did receive 1 unit of blood overnight. White blood cell count and platelet count are normal. His PT was 17.6 with INR of 1.5 last evening and 15.6 with INR 1.3 this afternoon. Electrolytes: BUN and creatinine are normal. LFTs on admission reveal a total bilirubin of 2.9, direct bilirubin of 1.7, AST 58, ALT 23, and alkaline phosphatase 162. Albumin 2.9. Lipase 63. Stool was obviously heme-positive. His alcohol level was 186. COVID was negative. He did have a CT scan on admission, that was negative for any signs of definitive active bleeding. There was evidence of cirrhosis with ascites and varices. There was evidence of some blood in the rectum and a clip was still visible. IMPRESSION: Given the patient's clinical history this certainly speaks for a post polypectomy bleed in relation to his colonoscopy several days ago. He did have significant bleeding yesterday, but things do seem to have stabilized at this time without any endoscopic intervention and only transfusion of 1 unit of blood with 2 units of FFP and some IV vitamin K. The clip that was placed post polypectomy seems to still be present. He does not appear to be showing any signs of liver decompensation. He has no signs of encephalopathy, upper GI bleeding, nor any clinical signs of spontaneous bacterial peritonitis. At this point, I would continue to observe him. I do not think he needs urgent colonoscopy given that things do seem to have significantly stopped from a bleeding standpoint and he seems quite stable based on his appearance and his most recent laboratories. As such, I would continue to keep him n.p.o., follow his laboratories closely and observe things. I advised him and his family that if things remain as they are and continue to remain stable, then I would simply slowly advance his diet and hold off on repeat colonoscopy. On the other hand, if he develops recurrent and significant bleeding, then he would need a colonoscopy to further evaluate and treat the bleeding site with either further clip placement or other modalities such as epinephrine injection, cauterization, and/or Hemospray. In regard to his liver disease, I did have a detailed discussion with him and his family in regard to his need to stop drinking, which he has obviously heard from other physicians and family members. I do see he is on lactulose, but I will stop that as he does not show any signs of encephalopathy and was not on that at home. This has all been discussed in detail with the patient and his family and they are comfortable with the plan. Thanks for the consultation. MD ASHLEE Ferguson/RIMMA / [id number] MTDScarlet
[2022-10-30 03:20] VITALS: BP 115/70; PULSE 91; RESP 16; TEMP 37.4; O2SAT 97
[2022-10-30 07:11] LABS: Basophils Absolute Auto 0.1 X10*3/uL (0.0-0.2); Basophils Percent Auto 1.3 % (0-2); Eosinophils Absolute Auto 0.3 X10*3/uL (0.0-0.4); Hematocrit 24.4 % (42.0-52.0); Hemoglobin 8.4 g/dl (14.0-18.0); Imm Gran Abs Auto 0.02 X10*3/uL (0.00-0.03); Imm Gran Pct Auto 0.3 % (0.0-0.4); Lymphocytes Absolute Auto 0.7 X10*3/uL (1.2-4.9); Lymphocytes Percent Auto 10.6 % (20-40); MANUAL DIFF FLAG SCAN; Mean Corpuscular HGB Conc 34.4 g/dl (31.0-36.0); Mean Corpuscular Hemoglobin 33.1 pg (27.0-33.0); Mean Corpuscular Volume 96.1 fL (80.0-98.0); Mean Platelet Volume 9.9 fL (9.4-12.4); Monocytes Absolute Auto 1.3 X10*3/uL (0.1-1.2); Monocytes Percent Auto 21.6 % (2-11); Neutrophils Absolute Auto 3.8 x10*3/uL (2.0-8.3); Neutrophils Percent Auto 61.2 % (45-73); Platelet Count 132 X10*3/uL (160-400); Red Blood Count 2.54 X10*6/uL (4.60-5.80); Red Cell Distribution Width 14.3 % (11.0-16.0); SCAN SMEAR FLAG 1; White Blood Count 6.2 X10*3/uL (4.8-10.8)
[2022-10-30 07:22] LABS: INTERNATIONAL NORM RATIO 1.5 (0.9-1.1); Prothrombin Time 17.3 SEC (10.0-13.1)
[2022-10-30 07:33] LABS: Alanine Aminotransferase 18 U/L (0-40); Albumin Level 2.5 g/dL (3.5-5.0); Alkaline Phosphatase 114 U/L (39-117); Anion Gap 11 (12-20); Aspartate Amino Transferase 47 U/L (5-37); Bilirubin Direct 1.8 mg/dL (0.0-0.5); Blood Urea Nitrogen 17 mg/dL (9-16); Calcium 8.5 mg/dL (8.4-10.2); Carbon Dioxide 23 mmol/L (22-29); Chloride 103 mmol/L (96-108); Creatinine Clr Calc Pharmacy 100.2; Estimated Glomerular Filt Rate > 60; Glucose Fasting 83 mg/dL (60-99); Potassium 4.1 mmol/L (3.3-5.1); Sodium 133 mmol/L (135-145); Total Protein 5.5 g/dL (6.5-8.0)
[2022-10-30 07:36] LABS: SLIDE REVIEW VERIFIED
[2022-10-30 08:00] VITALS: BP 127/72; PULSE 82; RESP 16; TEMP 36.8; O2SAT 94
[2022-10-30] MEDS: Folic Acid 1 MG TABLET PO (09:11)
[2022-10-30] MEDS: amLODIPine Besylate 2.5 MG TABLET 7.5 MG PO (09:11)
[2022-10-30] MEDS: Spironolactone 25 MG TABLET 50 MG PO (09:11)
[2022-10-30] MEDS: 0.9 % Sodium Chloride Flush 3 ML SYRINGE IVFLUSH (09:12)
[2022-10-30] MEDS: Thiamine HCL 100 MG in 0.9 % Sodium Chloride 100 ML 202 MG IV (09:12)
--- NOTE | 2022-10-30 11:05 | PM.DS ---
DS: Providers Provider Date of Service: 10/30/22 Date of admission: 10/29/22 01:39 Primary care physician: Ashutosh Aguilar MD Consults: 10/29/22 01:41 Addiction Medicine Routine Consulting Provider: Nash Stout Reason for consultation: alcohol use disorder Consult to Care Team Routine Comment: Reason for consultation: alcohol use disorder Consult to Gastroenterology Routine Consulting Provider: Martell Arboleda Reason for consultation: GI bleed DS: Diagnosis Discharge Diagnosis (1) Lower gastrointestinal hemorrhage: Status: Acute (2) Anemia: Status: Acute (3) Alcohol abuse: Status: Acute (4) Cirrhosis: Status: Acute DS: Summary Hospital Course Hospital Course: Chief Complaint: GI bleed This is a 72-year-old male with pertinent history of alcohol use disorder with alcoholic cirrhosis who presents to the emergency department for evaluation of acute lower GI bleed.? He had a colonoscopy on 10/24 when polypectomy was done.? On the day of presentation, patient started having painless lower GI bleed.? He saw bright red blood passing through rectum.? Minimal abdominal discomfort.? No fever, chills, chest discomfort, palpitation, shortness of breath, changes in urinary habits.? Drank 2 glasses of wine on the day of presentation.? No history of alcohol withdrawal.? Patient states when EMS came and he tried to get up from seated position, he had dizziness/lightheadedness and almost passed out.? Not on any blood thinners. Hospital course: Patient presented with bright red blood rectal bleed following a colonoscopy that involved polypectomy and clipping, He is noted to have hct of 30 on presentation and this has steadily come down to 28 the next day, then 26 repeat later the next day and today (day 3) 24. He has been treated with Vit K, 1 FFP, 1RBC. He has not had any bright red blood per rectum since admission but has had dark stool indicating old blood, he has been hemodynamically stable. GI (Dr. Arboleda) saw him and was kept NPO with the understaning to do colonoscopy if bleeding recur, thus far this has not been the case and patient wishes to go home. He is instructed to avoid aspirin and all forms of NSAID indefinately. I proposed to the patient and again to be observed one more night and repeat labs but again would like to go home today, decision supported by significant other at the bedside. Time Spent with Patient Time attestation: Total time managing care of this patient today ____ minutes. Discharge coordination time: Greater than 30 minutes Quality: Safe Use of Opioids Does Pt have an Active Cancer Diagnosis on the Problem List?: No Quality: Stroke Does the patient have a stroke diagnosis?: No Physical Exam Vital Signs: Vital Signs: Last Vital Signs Temp 98.2 F 10/30/22 08:00 Pulse 82 10/30/22 08:00 Resp 16 10/30/22 08:00 BP 127/72 10/30/22 08:00 Pulse Ox 94 10/30/22 08:00 O2 Del Method 10/30/22 08:00 BMI result Body Mass Index 24.0 DS: Data Data Completed and Pending Labs on day of discharge: Laboratory Results - last 24 hr 10/29/22 10/29/22 10/29/22 13:23 13:23 19:34 WBC 9.5 8.2 RBC 2.97 L 2.77 L Hgb 10.1 L 9.2 L Hct 28.0 L 26.1 L MCV 94.3 94.2 MCH 34.0 H 33.2 H MCHC 36.1 H 35.2 RDW 14.4 14.4 Plt Count 166 149 L MPV 9.6 9.5 Immature Gran % (Auto) 0.4 0.2 Neut % (Auto) 70.2 66.9 Lymph % (Auto) 7.6 L 8.9 L Mccracken % (Auto) 18.9 H 21.1 H Eos % (Auto) 1.6 1.8 Baso % (Auto) 1.3 1.1 Lymph # (Auto) 0.7 L 0.7 L Mccracken # (Auto) 1.8 H 1.7 H Eos # (Auto) 0.2 0.2 Baso # (Auto) 0.1 0.1 Abs Immat Gran (auto) 0.04 H 0.02 Absolute Neuts (auto) 6.7 5.5 Absolute Nucleated RBC 0.000 0.000 Nucleated RBC % (auto) 0.0 0.0 Smear Tech's Comments VERIFIED PT 15.6 H INR 1.3 H Sodium Potassium Chloride Carbon Dioxide Anion Gap BUN Creatinine Estim Creat Clear Calc Estimated GFR Fasting Glucose Calcium Total Bilirubin Direct Bilirubin AST ALT Alkaline Phosphatase Total Protein Albumin 10/30/22 10/30/22 10/30/22 06:42 06:42 06:42 WBC 6.2 RBC 2.54 L Hgb 8.4 L Hct 24.4 L MCV 96.1 MCH 33.1 H MCHC 34.4 RDW 14.3 Plt Count 132 L MPV 9.9 Immature Gran % (Auto) 0.3 Neut % (Auto) 61.2 Lymph % (Auto) 10.6 L Mccracken % (Auto) 21.6 H Eos % (Auto) 5.0 H Baso % (Auto) 1.3 Lymph # (Auto) 0.7 L M[place]racken # (Auto) 1.3 H Eos # (Auto) 0.3 Baso # (Auto) 0.1 Abs Immat Gran (auto) 0.02 Absolute Neuts (auto) 3.8 Absolute Nucleated RBC 0.000 Nucleated RBC % (auto) 0.0 Smear Tech's Comments VERIFIED PT 17.3 H INR 1.5 H Sodium 133 L Potassium 4.1 Chloride 103 Carbon Dioxide 23 Anion Gap 11 L BUN 17 H Creatinine 0.73 Estim Creat Clear Calc 100.2 Estimated GFR > 60 Fasting Glucose 83 Calcium 8.5 Total Bilirubin 3.0 H Direct Bilirubin 1.8 H AST 47 H ALT 18 Alkaline Phosphatase 114 Total Protein 5.5 L Albumin 2.5 L Discharge Plan Discharge Anticipated Discharge Date/Time: 10/30/22 11:06 Patient Disposition: Home, Self-Care Discharge Diagnosis: Acute blood loss anemia, GI bleeding Referrals: Ashutosh Aguilar MD [Primary Care Provider] - 1 Week Discharge Medications: Continued amlodipine 5 mg tablet 1.5 tab PO DAILY spironolactone 50 mg tablet 1 tab PO BID Taltz Autoinjector 80 mg/mL auto-injector 80 mg subcut Q28D Discharge Orders: Discharge Order (Routine); Ordered 10/30/22 Ordered By: Slade Nick Diet: Advance to usual diet Activity on Discharge: As tolerated Stand Alone Forms: Patient Portal Discharge page Care Plan Goals: GI bleeding prevention Health Concerns: Cirrhosis, anemia, ascietes, GI bleeding Plan of Treatment: avoid aspirin, NSAID (Motrin, Asprin, advil)--check with your local pharmacyst You prefers to go home today rather than been observed one more night Follow up with the your doctor who did the colonoscopy at [facility] Assessment: As above
--- NOTE | 2022-10-30 11:17 | HO.PM.IMPN ---
Subjective Subjective Date of Service: 10/30/22 Interval History: F/u on GIB, acute blood loss anemia Interval history: no further rectal bleed, H/H stable from yesterday, Review of Systems no abd pain no blood in stool Physical Exam Vital Signs: Vital Signs: Last Vital Signs Temp 98.2 F 10/30/22 08:00 Pulse 82 10/30/22 08:00 Resp 16 10/30/22 08:00 BP 127/72 10/30/22 08:00 Pulse Ox 94 10/30/22 08:00 O2 Del Method 10/30/22 08:00 BMI result Body Mass Index 24.0 Const: Other: General: AO X 3, no acute distress Resp: CTA bilateral CVS: S1,S2,RRR GI: +BS, NT, mild distention d/t ascites Skin: No rash Neuro: motor grossly intact Psych: appropriate affect Objective Data Active Medications Amlodipine Besylate (Amlodipine Besylate 2.5 Mg Tablet) 7.5 mg PO DAILY [facility]; Protocol Last Admin: 10/30/22 09:11 Dose: 7.5 mg Documented By: KATELYN Folic Acid (Folic Acid 1 Mg Tablet) 1 mg PO DAILY [facility] Last Admin: 10/30/22 09:11 Dose: 1 mg Documented By: KATELYN Thiamine HCl 100 mg/ Sodium (Chloride) 101 mls @ 202 mls/hr IV DAILY [facility] Last Infusion: 10/30/22 10:11 Dose: 0 mls/hr Documented By: KATELYN Melatonin (Melatonin 3 Mg Tablet) 6 mg PO BEDTIME PRN PRN Reason: Insomnia Last Admin: 10/29/22 21:49 Dose: 6 mg Documented By: ANDELTON Non-Formulary Medication (Ixekizumab [Taltz Autoinjector]) 80 mg SUBCUT Q28D [facility] Ondansetron HCl (Ondansetron Hcl 4 Mg/2 Ml Vial) 4 mg IVPUSH Q8H PRN PRN Reason: Nausea and Vomiting Last Admin: 10/29/22 03:07 Dose: 4 mg Documented By: CASSIDY Pharmacy Consult (Consult Rx Perform Med Rec) 1 each MISCELLANE ONCE PRN PRN Reason: Consult order Sodium Chloride (0.9 % Sodium Chloride Flush 3 Ml Syringe) 3 ml IVFLUSH QSHIFT [facility] Last Admin: 10/30/22 09:12 Dose: 3 ml Documented By: KATELYN Spironolactone (Spironolactone 25 Mg Tablet) 50 mg PO BID [facility]; Protocol Last Admin: 10/30/22 09:11 Dose: 50 mg Documented By: KATELYN Labs CBC & Chem 7: 10/30/22 06:42 10/30/22 06:42 Labs: Laboratory Results - last 24 hr 10/29/22 10/29/22 10/29/22 13:23 13:23 19:34 MCV 94.3 94.2 MCH 34.0 H 33.2 H MCHC 36.1 H 35.2 RDW 14.4 14.4 Plt Count 166 149 L MPV 9.6 9.5 Immature Gran % (Auto) 0.4 0.2 Neut % (Auto) 70.2 66.9 Lymph % (Auto) 7.6 L 8.9 L [place] % (Auto) 18.9 H 21.1 H Eos % (Auto) 1.6 1.8 Baso % (Auto) 1.3 1.1 Lymph # (Auto) 0.7 L 0.7 L [place] # (Auto) 1.8 H 1.7 H Eos # (Auto) 0.2 0.2 Baso # (Auto) 0.1 0.1 Abs Immat Gran (auto) 0.04 H 0.02 Absolute Neuts (auto) 6.7 5.5 Absolute Nucleated RBC 0.000 0.000 Nucleated RBC % (auto) 0.0 0.0 Smear Tech's Comments VERIFIED PT 15.6 H INR 1.3 H Anion Gap Estim Creat Clear Calc Estimated GFR Fasting Glucose Calcium Total Bilirubin Direct Bilirubin AST ALT Alkaline Phosphatase Total Protein Albumin 10/30/22 10/30/22 10/30/22 06:42 06:42 06:42 MCV 96.1 MCH 33.1 H MCHC 34.4 RDW 14.3 Plt Count 132 L MPV 9.9 Immature Gran % (Auto) 0.3 Neut % (Auto) 61.2 Lymph % (Auto) 10.6 L [place] % (Auto) 21.6 H Eos % (Auto) 5.0 H Baso % (Auto) 1.3 Lymph # (Auto) 0.7 L [place] # (Auto) 1.3 H Eos # (Auto) 0.3 Baso # (Auto) 0.1 Abs Immat Gran (auto) 0.02 Absolute Neuts (auto) 3.8 Absolute Nucleated RBC 0.000 Nucleated RBC % (auto) 0.0 Smear Tech's Comments VERIFIED PT 17.3 H INR 1.5 H Anion Gap 11 L Estim Creat Clear Calc 100.2 Estimated GFR > 60 Fasting Glucose 83 Calcium 8.5 Total Bilirubin 3.0 H Direct Bilirubin 1.8 H AST 47 H ALT 18 Alkaline Phosphatase 114 Total Protein 5.5 L Albumin 2.5 L Assessment and Plan (1) Acute blood loss anemia: Status: Acute Plan This is a 72-year-old male with pertinent history of alcohol use disorder with alcoholic cirrhosis who presents to the emergency department for evaluation of acute lower GI bleed. #. Acute GI bleed with acute blood loss anemia: likely from recent polypectomy. Treated with Vitamin K, IV crystalloids, FFP and 1 unit PRBC . No active bleeding and H/H seems to have stabilized #. Presyncope in the setting of above, resolved #. Acute blood loss anemia: Closely monitor H&H #. Reactive leukocytosis #. Alcoholic cirrhosis: Will need paracentesis for ascites. resume spironolactone at discharge Initiated lactulose. #. Alcohol use disorder: thymine and folic acid. Monitor CIWA. Consulted CARE team and Addiction Team #. Essential hypertension: Hold amlodipine and diuretics DVT prophylaxis: Mechanical. Lovenox contraindicated in the setting of GI bleed NPO Full code Need for inpatient: GIB bleed work up and monitoring Time Spent With Patient Time: Total time managing care of this patient today ____ minutes. Quality Stroke Does the patient have a stroke diagnosis?: No VTE Prior VTE?: No VTE Risk Level:: Medical - moderate - high VTE Device Contraindication: N/A - Device Ordered VTE Drug Contraindication: Treatment Not Indicated
[2022-10-30 11:24] VITALS: BP 121/76; PULSE 98; RESP 16; TEMP 36.9; O2SAT 94
--- NOTE | 2022-10-30 11:25 | MHC.RECOVSUP ---
Recovery Support note: Patient is a 72 year old Guatemalan speaking male who presented [place] [facility] due to [place]. This property underwriter met with patient in 472 to discuss alcohol use and recovery supports. Patient reports he was previously drinking 3-4 cocktails a day in addition to glasses of wine with dinner however states he stopped once he was diagnosed with cirrhosis, about 4 years ago. Patient reports he was sober for 2 years after the diagnosis. Patient reports he now drinks 1-2 glasses of wine, 3-4 days a week. Patient acknowledges the importance of total abstinence for his overall health. Patient reports he is confident in his ability to maintain sobriety. Patient reports he stays busy by visiting his grandchildren, golfing, reading the newspaper and going on walks. Patient is not interested in recovery resources at this time. Patient reports his is very supportive. Discussed case with Santa Herrera NP.
== END 2022-10-30 13:46 | disposition home or self-care (01) | DRG 920 ==
LOC: HO.ED 10-29 01:42 → HO.EDOVER 10-29 01:43 → HO.IMC 10-29 07:05
PROVIDERS: Internal Medicine; Admitting Provider Student in an Organized Health Care Education/Training Program; Emergency Provider Emergency Medicine; PCP Family Medicine; Visit Provider Internal Medicine
DX: K91.840 Postprocedural hemorrhage of a digestive system organ or structure following a digestive system procedure (principal); D62 Acute posthemorrhagic anemia; Y84.8 Other medical procedures as the cause of abnormal reaction of the patient, or of later complication, without mention of misadventure at the time of the procedure; Y90.6 Blood alcohol level of 120-199 mg/100 ml; F10.10 Alcohol abuse, uncomplicated; I10 Essential (primary) hypertension; K70.31 Alcoholic cirrhosis of liver with ascites; Z20.822 Contact with and (suspected) exposure to COVID-19; Z79.899 Other long term (current) drug therapy
CPT/HCPCS: 36415; 49083; 74178; 80048; 80053; 80076; 82077; 82140; 82272; 82947; 83036; 83690; 83735; 84484; 85014; 85018; 85025; 85610; 86078; 86850; 86900; 86901; 86923; 87040; 87070; 87073; 87205; 87635; 88112; 89051; 93005; 97161; 99285; J0696; J2405; J3411; J3430; P9016; P9017; P9047; Q9967

== ENCOUNTER 2022-10-30 17:19 | Inpatient (IN) | payer MEDICARE, OTHER, SELFPAY ==
--- NOTE | ~2022-10-30 | US_ITS ---
PROCEDURE: US-GUIDED PARACENTESIS CLINICAL INFORMATION: Ascites. COMPARISON: None TECHNIQUE: Following explaining ultrasound-guided paracentesis procedure, benefits and risk, a written consent was obtained. Preliminary ultrasound imaging was obtained through the abdomen and right lower quadrant selected and marked. The marked site was cleaned and draped in the usual sterile manner with 2% chlorhexidine solution. 1% lidocaine was administered at the puncture site. Through a small skin incision, a 5-[employer] catheter was advanced into the peritoneal space. After observing fluid return, the stylet was removed and catheter connected to vacuum bottle. Post-procedure, after observing no fluid remaining, catheter was removed and complete hemostasis achieved at the puncture site. Sterile dressing applied post-procedure. Patient tolerated the procedure extremely well. FINDINGS: There is [id number] amount of free fluid in the pelvis. Approximately 7.9 L of clear orange-tinged fluid was removed for diagnostic purposes. US/US paracentesis abd w/image IMPRESSION: Successful ultrasound-guided diagnostic and therapeutic paracentesis performed without immediate complications.
--- NOTE | 2022-10-30 17:29 | ED_ITS ---
HPI - GI Bleed General Chief complaint: GI Bleed Stated complaint: gi bleed Time Seen by Provider: 10/30/22 17:27 Source: patient Mode of arrival: ambulatory History of Present Illness HPI Narrative: Patient is 72 years old with history of alcohol use disorder with alcoholic cirrhosis had lower GI bleed status post polypectomy done at [facility] on 10/24 bleeding started on 10/28bled 2 times was admitted was given FFP and 1 unit of PRBC and vitamin K bleeding. During stay patient went home this afternoon comes back as well at home he had went to bathroom and had rectal bleeding again was just pouring bright red blood once no abdominal pain no dizziness no passing-out episode no dizziness no passing out this time bleeding was less than 2 days ago Related Data Home Medications Medication Instructions Recorded Confirmed amlodipine 5 mg tablet 1.5 tab PO DAILY 10/29/22 10/30/22 ixekizumab 80 mg/mL subcutaneous 80 mg subcut Q28D 10/29/22 10/30/22 auto-injector (Taltz Autoinjector) spironolactone 50 mg tablet 1 tab PO BID 10/29/22 10/30/22 Allergies Allergy/AdvReac Type Severity Reaction Status Date / Time No Known Allergies Allergy Verified 10/28/22 22:26 Review of Systems Review of Systems: Yes all other systems are reviewed and are negative PMFSH Past Medical History Medical History Alcohol abuse Cirrhosis Social History Social History Household Members: Spouse Housing: House Do you presently have visiting nurse or other home services: No Alcohol intake: current Alcohol intake frequency: a few times a week Alcohol type: wine Patient Tobacco Use Status: Never used Tobacco Advance Directives Date on File: 10/29/22 Physical Exam Vital Signs: Vital Signs: Last Vital Signs Temp 97.6 F 10/31/22 00:51 Pulse 116 H 10/31/22 00:51 Resp 16 10/31/22 00:51 BP 131/77 10/31/22 00:51 Pulse Ox 99 10/30/22 23:09 O2 Del Method 10/30/22 23:09 BMI result Body Mass Index 0.3 Appearance: Alert. Oriented X3. No acute distress. Eyes: PERRLA, No Nystagmus ENT: Pharynx normal. Oral Mucosa moist Neck: Normal inspection. Neck supple. CVS: Normal heart rate and rhythm. Pulses normal. Respiratory: No respiratory distress. Equal air entry bilateral, no wheezing/rales/rhonchi Abdomen: Soft and nontender. Bowel sounds are present, no mass palpable, no CVA tenderness ascites Skin: Skin warm and dry. Normal skin color. Normal skin turgor. Extremities: No lower extremity edema. No calf tenderness Neuro: Oriented X 3. No motor deficit. No sensory deficit.No cerebellar signs , cranial nerves II-XII intact Medications Administered Generic Name Dose Route Start Last Admin Trade Name Freq PRN Reason Stop Dose Admin Ceftriaxone Sodium 1 gm/ 50 mls @ 100 mls/hr 10/30/22 20:15 10/30/22 23:49 Sodium Chloride IV Infused Q12H MAX Infusion Insulin Human Lispro 0 unit 10/30/22 22:00 10/30/22 23:15 Insulin Lispro 100 Unit/Ml 3 Ml Vial SUBCUT Not Given Q6H [facility] Protocol Discontinued Medications Generic Name Dose Route Start Last Admin Trade Name Freq PRN Reason Stop Dose Admin Bisacodyl 10 mg 10/30/22 22:00 10/30/22 22:49 Bisacodyl 5 Mg Tablet. PO 10/30/22 22:01 10 mg ONCE ONE Administration Phytonadione 10 mg/ Sodium 51 mls @ 51 mls/hr 10/30/22 19:44 10/30/22 23:49 Chloride IV 10/30/22 20:43 Infused ONCE ONE Infusion Polyethylene Glycol/Electrolytes 4,000 ml 10/30/22 19:35 10/30/22 20:35 Peg 3350/Na Sulf,Bicarb,Cl/Kcl 4,000 Ml Soln.Recon PO 10/30/22 19:36 4,000 ml ONCE ONE Administration Medical Decision Making Medical Decision Making MDM Narrative: Patient with GI bleed status post polypectomy case discussed with Dr. Arboleda will do colonoscopy in the morning possible to cauterize the bleeders. Patient H&H stable vital stable will admit Lab Attestation: I reviewed the patient's lab results. Discharge Plan Discharge Clinical Impression: Lower gastrointestinal hemorrhage Patient Disposition: Admitted As Inpatient Interventions: Admission Worksheet (ED) Last Done: 10/30/22 23:47 Discharge Date/Time: 10/30/22 23:51
[2022-10-30 17:39] VITALS: BP 137/80; PULSE 111; O2SAT 98
--- OUTSIDE RECORDS SUMMARY | 2022-10-30 17:54 | XMS_ITS ---
:1950 Author Care Team Providers Name Role Phone [phone] Primary Care Provider Unavailable Allergies Code Code System Name Reaction Severity Status Onset NKDA ? Medications Name Status Start Date Stop Date ? ? amoxicillin 875 mg tablet Active ? Not av ailable Take 1 tablet every 12 hours by oral route for 10 days. atenolol Active ? Not available metoprolol succinate Active ? Not availab le Stelara Active ? Not available Problems Name Status Onset Date Source ? Hypertensive Disorder Active ? ? Psoriasis Active ? ? Procedures Notes: denies psh Results Lab Results Date Name Specimen Result Interpretation Description Value Range Status Address ? ? Rapid Strep Group a, ? Strep negative ? ? In-Office Order: Internal Throat Use Only D O Not Attach Compendium DO Not Attach Compendium , Do Not Delete/[place] Past Encounters None recorded. Social History Tobacco Smoking Status Never Smoker Vaccine List None recorded. Plan of Care Reminders Provider Appointments None recorded. ? ? Lab None recorded. ? ? Referral None recorded. ? ? Procedures None recorded. ? ? Surgeries None recorded. ? ? Imaging None recorded. ? ? Vitals Height Weight BMI Blood Pressure 6 ft 172 lbs 23.3 kg/m2 178/89 mm[Hg]
[2022-10-30 18:10] LABS: Basophils Absolute Auto 0.1 X10*3/uL (0.0-0.2); Eosinophils Absolute Auto 0.3 X10*3/uL (0.0-0.4); Eosinophils Percent Auto 2.8 % (0-4); Hematocrit 25.6 % (42.0-52.0); Hemoglobin 9.2 g/dl (14.0-18.0); Imm Gran Abs Auto 0.04 X10*3/uL (0.00-0.03); Imm Gran Pct Auto 0.4 % (0.0-0.4); Lymphocytes Absolute Auto 0.5 X10*3/uL (1.2-4.9); Lymphocytes Percent Auto 5.1 % (20-40); MANUAL DIFF FLAG SCAN; Mean Corpuscular HGB Conc 35.9 g/dl (31.0-36.0); Mean Corpuscular Hemoglobin 34.2 pg (27.0-33.0); Mean Corpuscular Volume 95.2 fL (80.0-98.0); Mean Platelet Volume 9.2 fL (9.4-12.4); Monocytes Absolute Auto 1.7 X10*3/uL (0.1-1.2); Monocytes Percent Auto 19.2 % (2-11); NRBC Pct Auto 0.2 /100WBC (0.0-0.2); Neutrophils Absolute Auto 6.4 x10*3/uL (2.0-8.3); Neutrophils Percent Auto 71.5 % (45-73); Platelet Count 156 X10*3/uL (160-400); Red Blood Count 2.69 X10*6/uL (4.60-5.80); Red Cell Distribution Width 14.4 % (11.0-16.0); SCAN SMEAR FLAG 1
[2022-10-30 18:21] LABS: INTERNATIONAL NORM RATIO 1.5 (0.9-1.1); Prothrombin Time 17.5 SEC (10.0-13.1)
[2022-10-30 18:26] VITALS: BP 123/73; PULSE 100; RESP 18; TEMP 36.7; O2SAT 99
[2022-10-30 18:30] LABS: Alanine Aminotransferase 19 U/L (0-40); Albumin Level 2.9 g/dL (3.5-5.0); Alkaline Phosphatase 129 U/L (39-117); Anion Gap 13 (12-20); Aspartate Amino Transferase 49 U/L (5-37); Bilirubin Total 3.3 mg/dL (0.0-1.0); Blood Urea Nitrogen 20 mg/dL (9-16); Calcium 8.9 mg/dL (8.4-10.2); Carbon Dioxide 22 mmol/L (22-29); Chloride 102 mmol/L (96-108); Estimated Glomerular Filt Rate > 60; Glucose Random 188 mg/dL (60-115); Magnesium 1.6 mg/dL (1.6-2.6); Potassium 4.6 mmol/L (3.3-5.1); SLIDE REVIEW VERIFIED; Sodium 132 mmol/L (135-145); Total Protein 6.2 g/dL (6.5-8.0)
--- NOTE | 2022-10-30 19:46 | MHC.SHP ---
Pre-Procedural Eval Section A Date of Service: 10/31/22 The patient is an INPATIENT: Yes The History & Physical has been completed within 30 days and I have reviewed it.: Yes Section B Chief Complaint: gi bleed Allergies: Allergies Allergy/AdvReac Type Severity Reaction Status Date / Time No Known Allergies Allergy Verified 10/28/22 22:26 Plan I have reviewed the history and physical and performed a pertinent physical examination on my patient. No changes have occurred unless specified.
--- NOTE | 2022-10-30 19:47 | P.EN_ITS ---
Event Note Date of Service: 10/30/22 Event Note: GI-Case discussed with ER MD. Patient well known to me from his hospital admission this weekend. He insisted on going home just a few hours ago despite being told to stay until at least tomorrow. He underwent an EGD and Colonoscopy on 10/24 at [facility] with Dr. Cross. His EGD was negative except for a ? of an ampullary polyp which was biopsied. The report states that there were no varices. His colonoscopy had a small rectal polyp removed by a cold snare and then clipped x 1. His presentation here on 10/28 was very c/w a post-polypectomy bleed. He has underlying EtOH cirrhosis with continued EtOH use. He does have ascites. He received 2 u FFP and IV Vit K on the night of his admission 48 hours ago. His bleeding had stopped spontaneously since his admission over the weekend and therefore a colonoscopy was not done. However, apparently the bleeding started up again after he went home, but there was no syncope as there was before. His current Hgb is actually quite stable as compared to this morning's labs. At this point, given his recurrent bleeding, I will keep him NPO except for meds and ice chips, and prep him for a colonoscopy. I will plan to do it tomorrow unless the bleeding becomes significantly active overnight. I have ordered some Vit K and 2 u FFP for tonight, as well as follow up labs for later this evening and the morning. Of note, I had reviewed the possibility of a colonoscopy with the patient, his , and his daughter when I saw him yesterday. Please call me if any questions arise or if there are any problems overnight. Thanks. Time Spent With Patient Time: Total time managing care of this patient today ____ minutes.
[2022-10-30] MEDS: PEG 3350/Na Sulf,Bicarb,Cl/KCL 4,000 ML SOLN.RECON 4000 ML PO (20:35)
[2022-10-30] MEDS: Phytonadione (Vit K1) 10 MG in 0.9 % Sodium Chloride 50 ML 51 MG IV (21:01)
[2022-10-30 21:05] LABS: COVID-19 Test Negative (Negative); IDNOW Serial# 16C4AD1C
--- NOTE | 2022-10-30 21:40 | P.HPHOSP_ITS ---
History of Present Illness Date of Service: 10/30/22 Chief Complaint: GI bleed This is a 72-year-old male with pertinent history of alcohol use disorder with alcoholic cirrhosis who presents to the emergency department for evaluation of acute lower GI bleed.?Patient was admitted on 10/29 for similar complaints. He received 2 units FFP and IV vitamin K and he did not have any more episodes of bleeding during hospital stay. He was discharged home today and states he had further episodes of non painful passing of bright red blood per rectum. Of note he had a colonoscopy on 10/24 when polypectomy was done.? He saw bright red blood passing through rectum.? Minimal abdominal discomfort.? No fever, chills, chest discomfort, palpitation, shortness of breath, changes in urinary habits.?Has history of alcohol use disorder.? No history of alcohol withdrawal.?Not on any blood thinners. Review of Systems Constitutional: Constitutional: Reports no additional constitutional complaints Cardiovascular: Cardiovascular: Reports no additional cardiovascular complaints Respiratory: Respiratory: Reports no additional respiratory complaints Gastrointestinal: Gastrointestinal: Reports hematochezia Genitourinary: Genitourinary: Reports no additional male genitourinary complaints [facility] Medical History Alcohol abuse Cirrhosis Pertinent family history: Does not know us pertinent family history Social History Household Members: Spouse Housing: House Do you presently have visiting nurse or other home services: No Alcohol intake: current Alcohol intake frequency: a few times a week Alcohol type: wine Patient Tobacco Use Status: Never used Tobacco Advance Directives: Yes Advance Directives Information Provided: No Advance Directives on File: No Advance Directives Date on File: 10/29/22 Meds Allergies Allergy/AdvReac Type Severity Reaction Status Date / Time No Known Allergies Allergy Verified 10/28/22 22:26 Active Medications: Current Medications Bisacodyl (Bisacodyl 5 Mg Tablet.Dr) 10 mg PO ONCE ONE Stop: 10/30/22 22:01 Ceftriaxone Sodium 1 gm/ (Sodium Chloride) 50 mls @ 100 mls/hr IV Q12H [facility] Home Medications Medication Instructions Recorded Confirmed Last Taken Type amlodipine 5 mg tablet 1.5 tab PO DAILY 10/29/22 10/29/22 10/28/22 History ixekizumab 80 mg/mL subcutaneous 80 mg subcut Q28D 10/29/22 10/29/22 10/28/22 History auto-injector (Taltz Autoinjector) spironolactone 50 mg tablet 1 tab PO BID 10/29/22 10/29/22 10/28/22 History Physical Exam Vital Signs and Narrative: Vital Signs: Last Vital Signs Temp 98.1 F 10/30/22 18:26 Pulse 100 10/30/22 18:26 Resp 18 10/30/22 18:26 BP 123/73 10/30/22 18:26 Pulse Ox 99 10/30/22 18:26 O2 Del Method 10/30/22 18:26 BMI result Body Mass Index 0.3 Middle-aged male l shaka in bed in no distress Neck supp le, no JVD Tachyca rdic with regular rhythm, S1-S2 hear d Regular breath s ounds bilaterally, no wheezing or cr ackles appreciated Abdomen soft nont gallo, no guarding , no rigidity Kay ent is awake, aler t and oriented to self, place, time and person ; no fo jayme motor deficit Psych: Normal mood No pedal edema Results Labs CBC and Chem 7: 10/30/22 18:03 10/30/22 18:03 Labs: Laboratory Results - last 24 hr 10/30/22 10/30/22 10/30/22 18:03 18:03 18:03 MCV 95.2 MCH 34.2 H MCHC 35.9 RDW 14.4 Plt Count 156 L MPV 9.2 L Immature Gran % (Auto) 0.4 Neut % (Auto) 71.5 Lymph % (Auto) 5.[address] [facility] % (Auto) 19.2 H Eos % (Auto) 2.8 Baso % (Auto) 1.0 Lymph # (Auto) 0.[address] [facility] # (Auto) 1.7 H Eos # (Auto) 0.3 Baso # (Auto) 0.1 Abs Immat Gran (auto) 0.04 H Absolute Neuts (auto) 6.4 Absolute Nucleated RBC 0.020 H Nucleated RBC % (auto) 0.2 Smear Tech's Comments VERIFIED PT 17.5 H INR 1.5 H Anion Gap 13 Estim Creat Clear Calc 74.0 Estimated GFR > 60 Random Glucose 188 H Calcium 8.9 Magnesium 1.6 Total Bilirubin 3.3 H AST 49 H ALT 19 Alkaline Phosphatase 129 H Total Protein 6.2 L Albumin 2.9 L COVID-19 ([facility]) COVID-19 Clin Com 10/30/22 20:26 MCV MCH MCHC RDW Plt Count MPV Immature Gran % (Auto) Neut % (Auto) Lymph % (Auto) [facility] % (Auto) Eos % (Auto) Baso % (Auto) Lymph # (Auto) [facility] # (Auto) Eos # (Auto) Baso # (Auto) Abs Immat Gran (auto) Absolute Neuts (auto) Absolute Nucleated RBC Nucleated RBC % (auto) Smear Tech's Comments PT INR Anion Gap Estim Creat Clear Calc Estimated GFR Random Glucose Calcium Magnesium Total Bilirubin AST ALT Alkaline Phosphatase Total Protein Albumin COVID-19 ([facility]) Negative COVID-19 Clin Com See Note Assessment and Plan (1) Acute blood loss anemia: Status: Acute (2) Alcohol abuse: Status: Acute (3) Cirrhosis: Status: Acute (4) Lower gastrointestinal hemorrhage: Status: Acute Plan This is a 72-year-old male with pertinent history of alcohol use disorder with alcoholic cirrhosis who presents to the emergency department for evaluation of acute lower GI bleed. #.? Acute GI bleed: Will admit with monitor technician.? Gastroenterology was consulted from the ER, appreciate assistance.?Noted plans for colonoscopy in a.m..Receiving 2u FFP and Vit K as per GI recommendations.? Will keep NPO. Also initiated on Rocephin empirically per GI #.? Acute blood loss anemia: due to above Closely monitor H&H #.? Alcoholic cirrhosis:? Will need paracentesis for ascites.? Hold spironolactone. #.? Alcohol use disorder: Initiating thiamine.? Monitor CIWA. #.? Essential hypertension:? Hold amlodipine and diuretics #. Hyperglycemia: No history of DM. Initiate Accu-Cheks and sliding scale insulin, obtain A1c Med rec pending DVT prophylaxis: Mechanical.? Lovenox contraindicated in the setting of GI bleed NPO Full code Admit as inpatient and will require two night minimum hospital stay for close monitoring of hemodynamics and H&H. Colonoscopy in a.m Time Spent With Patient Time: Total time managing care of this patient today ____ minutes. Quality Stroke Does the patient have a stroke diagnosis?: No VTE Prior VTE?: No VTE Risk Level:: Medical - moderate - high VTE Device Contraindication: N/A - Device Ordered VTE Drug Contraindication: Treatment Not Indicated
[2022-10-30 21:50] LABS: Basophils Absolute Auto 0.1 X10*3/uL (0.0-0.2); Basophils Percent Auto 1.1 % (0-2); Eosinophils Absolute Auto 0.3 X10*3/uL (0.0-0.4); Eosinophils Percent Auto 2.8 % (0-4); Hematocrit 26.2 % (42.0-52.0); Hemoglobin 9.3 g/dl (14.0-18.0); Imm Gran Abs Auto 0.04 X10*3/uL (0.00-0.03); Imm Gran Pct Auto 0.3 % (0.0-0.4); Lymphocytes Absolute Auto 0.8 X10*3/uL (1.2-4.9); MANUAL DIFF FLAG SCAN; Mean Corpuscular HGB Conc 35.5 g/dl (31.0-36.0); Mean Corpuscular Hemoglobin 33.5 pg (27.0-33.0); Mean Corpuscular Volume 94.2 fL (80.0-98.0); Mean Platelet Volume 9.8 fL (9.4-12.4); Monocytes Percent Auto 16.7 % (2-11); Neutrophils Absolute Auto 8.5 x10*3/uL (2.0-8.3); Neutrophils Percent Auto 72.1 % (45-73); Platelet Count 203 X10*3/uL (160-400); Red Blood Count 2.78 X10*6/uL (4.60-5.80); Red Cell Distribution Width 14.3 % (11.0-16.0); SCAN SMEAR FLAG 1; White Blood Count 11.8 X10*3/uL (4.8-10.8)
--- NOTE | 2022-10-30 21:51 | PHA.MEDREC ---
Pharmacy Consult ? Medication Reconciliation Pharmacy has completed the medication reconciliation. Med rec done by pharmacy on 10/28. Pt discharged <6 hours ago and back so med rec done using discharge summary and other profile Ivan
[2022-10-30 22:06] VITALS: BP 137/80; PULSE 120; RESP 15; TEMP 36.4; O2SAT 99
[2022-10-30] MEDS: bisacodyL 5 MG TABLET.DR 10 MG PO (22:49)
[2022-10-30] MEDS: cefTRIAXone sodium 1 GM in 0.9 % Sodium Chloride 50 ML IV (22:53)
[2022-10-30 23:09] VITALS: BP 137/84; PULSE 126; RESP 19; TEMP 36.4; O2SAT 99
[2022-10-30 23:11] LABS: Glucose, Whole Blood 119 mg/dL (60-115)
[2022-10-31] VITALS (33 sets, daily range): BP systolic 90–139; BP diastolic 53–81; PULSE 80–130; RESP 15–20; TEMP 36.4–37.3; O2SAT 96–98
[2022-10-31] MEDS: 0.9 % Sodium Chloride Flush 3 ML SYRINGE IVFLUSH ×3 (01:36→22:21)
[2022-10-31] MEDS: 0.9 % Sodium Chloride 1,000 ML 999 ML IV (01:36)
[2022-10-31 01:51] LABS: Glucose, Whole Blood 165 mg/dL (60-115)
[2022-10-31 01:59] LABS: Basophils Absolute Auto 0.1 X10*3/uL (0.0-0.2); Basophils Percent Auto 0.8 % (0-2); Eosinophils Absolute Auto 0.2 X10*3/uL (0.0-0.4); Eosinophils Percent Auto 1.6 % (0-4); Hematocrit 21.9 % (42.0-52.0); Hemoglobin 7.9 g/dl (14.0-18.0); Imm Gran Abs Auto 0.07 X10*3/uL (0.00-0.03); Imm Gran Pct Auto 0.6 % (0.0-0.4); Lymphocytes Absolute Auto 1.1 X10*3/uL (1.2-4.9); Lymphocytes Percent Auto 8.8 % (20-40); MANUAL DIFF FLAG SCAN; Mean Corpuscular HGB Conc 36.1 g/dl (31.0-36.0); Mean Corpuscular Hemoglobin 34.8 pg (27.0-33.0); Mean Corpuscular Volume 96.5 fL (80.0-98.0); Mean Platelet Volume 9.7 fL (9.4-12.4); Monocytes Percent Auto 16.3 % (2-11); NRBC Pct Auto 0.2 /100WBC (0.0-0.2); Neutrophils Absolute Auto 8.9 x10*3/uL (2.0-8.3); Neutrophils Percent Auto 71.9 % (45-73); Platelet Count 209 X10*3/uL (160-400); Red Blood Count 2.27 X10*6/uL (4.60-5.80); Red Cell Distribution Width 14.5 % (11.0-16.0); SCAN SMEAR FLAG 1; White Blood Count 12.4 X10*3/uL (4.8-10.8)
[2022-10-31 05:22] LABS: Glucose, Whole Blood 130 mg/dL (60-115)
[2022-10-31 06:23] LABS: MANUAL DIFF FLAG NO
[2022-10-31 06:35] LABS: INTERNATIONAL NORM RATIO 1.7 (0.9-1.1); Prothrombin Time 19.9 SEC (10.0-13.1)
--- NOTE | 2022-10-31 06:38 | PC.NURSE ---
Patient admitted to floor around 00:15am - order for FFP started at around 00:35, approx 30 mins after beginning transfusion patient needed to get up to use the bathroom and voided large amount of clarissa red blood per rectum in toilet. Picture was sent to both Dr. Jacobs and Dr. Arboleda for reference. Pt. felt dizzy, became hypotensive 90/53 and tachycardic with HR as high as 150. FFP was stopped, order for CBC and NS bolus obtained. NS bolus was administered and H&H came back 7.9 and 21.9. Patients vital signs stabilized at 100/59, HR 107 after bolus. Order for 2 units PRBC's ordered per Dr. Arboleda. First unit of RBC's was transfused without reaction. Patient feeling back to baseline, able to ambulate and converse. A&Ox4. No pain. Vital signs continue to be stable this morning. Second unit was started. Both overnight hospitalist and GI aware. Will pass onto oncoming RN as well.
[2022-10-31 07:05] LABS: Basophils Absolute Auto 0.1 X10*3/uL (0.0-0.2); Basophils Percent Auto 0.5 % (0-2); Eosinophils Percent Auto 0.2 % (0-4); Hemoglobin 7.5 g/dl (14.0-18.0); Imm Gran Abs Auto 0.07 X10*3/uL (0.00-0.03); Imm Gran Pct Auto 0.7 % (0.0-0.4); Lymphocytes Absolute Auto 0.4 X10*3/uL (1.2-4.9); Lymphocytes Percent Auto 4.1 % (20-40); Mean Corpuscular HGB Conc 35.9 g/dl (31.0-36.0); Mean Corpuscular Hemoglobin 33.8 pg (27.0-33.0); Mean Corpuscular Volume 94.1 fL (80.0-98.0); Mean Platelet Volume 9.8 fL (9.4-12.4); Monocytes Absolute Auto 1.3 X10*3/uL (0.1-1.2); Monocytes Percent Auto 11.8 % (2-11); Neutrophils Absolute Auto 8.9 x10*3/uL (2.0-8.3); Neutrophils Percent Auto 82.7 % (45-73); Platelet Count 142 X10*3/uL (160-400); Red Blood Count 2.22 X10*6/uL (4.60-5.80); Red Cell Distribution Width 13.8 % (11.0-16.0); White Blood Count 10.7 X10*3/uL (4.8-10.8)
[2022-10-31 07:24] LABS: Alanine Aminotransferase 17 U/L (0-40); Albumin Level 2.4 g/dL (3.5-5.0); Alkaline Phosphatase 100 U/L (39-117); Anion Gap 13 (12-20); Aspartate Amino Transferase 43 U/L (5-37); Bilirubin Direct 1.4 mg/dL (0.0-0.5); Bilirubin Total 4.1 mg/dL (0.0-1.0); Blood Urea Nitrogen 22 mg/dL (9-16); Calcium 8.1 mg/dL (8.4-10.2); Carbon Dioxide 20 mmol/L (22-29); Chloride 106 mmol/L (96-108); Creatinine Clr Calc Pharmacy 77.7; Estimated Glomerular Filt Rate > 60; Glucose Fasting 126 mg/dL (60-99); Potassium 4.2 mmol/L (3.3-5.1); Sodium 135 mmol/L (135-145)
[2022-10-31 07:27] LABS: Hematocrit 20.9 % (42.0-52.0)
[2022-10-31 07:39] LABS: Estimated Average Glucose 80 mg/dL; Hemoglobin A1C 74.9238 umol/L; Hemoglobin A1c % 4.4 %
--- NOTE | 2022-10-31 07:50 | HO.PM.IMPN ---
Subjective Subjective Date of Service: 10/31/22 Interval History: F/u GI bleed, acute blood loss anemia Interval history: No active bleed, H/H since discharge and despite transfusion yesterday Review of Systems no active bleed no abdominal pain Physical Exam Vital Signs: Vital Signs: Last Vital Signs Temp 98.6 F 10/31/22 07:06 Pulse 98 10/31/22 07:06 Resp 17 10/31/22 07:06 BP 128/64 10/31/22 07:06 Pulse Ox 98 10/31/22 07:06 O2 Del Method 10/31/22 07:06 BMI result Body Mass Index 0.3 Const: Other: General: AO X 3, no acute distress Resp: CTA bilateral CVS: S1,S2,RRR GI: +BS, NT, no distention Skin: No rash Neuro: motor grossly intact Psych: appropriate affect Objective Data Active Medications Dextrose (Dextrose 50 % 25 Gm/50 Ml Syringe) 25 gm IVPUSH Q15M PRN; Protocol PRN Reason: per Hypoglycemia Standing Ord. Glucose (Glucose Gel 15 Gm Gel..Gram.) 15 gm PO Q15M PRN; Protocol PRN Reason: per Hypoglycemia Standing Ord. Ceftriaxone Sodium 1 gm/ (Sodium Chloride) 50 mls @ 100 mls/hr IV Q12H COUNTS INCLUDE 234 BEDS AT THE [facility] Last Infusion: 10/30/22 23:49 Dose: 0 mls/hr Documented By: LOUANN Thiamine HCl 100 mg/ Sodium (Chloride) 101 mls @ 202 mls/hr IV DAILY COUNTS INCLUDE 234 BEDS AT THE [facility] Insulin Human Lispro (Insulin Lispro 100 Unit/Ml 3 Ml Vial) 0 unit SUBCUT Q6H COUNTS INCLUDE 234 BEDS AT THE [facility]; Protocol Last Admin: 10/31/22 05:25 Dose: Not Given Documented By: LOUANN Non-Admin Reason: No Insulin Coverage Ondansetron HCl (Ondansetron Hcl 4 Mg/2 Ml Vial) 4 mg IVPUSH Q8H PRN PRN Reason: Nausea and Vomiting Pharmacy Consult (Consult Rx Perform Med Rec) 1 each MISCELLANE ONCE PRN PRN Reason: Consult order Sodium Chloride (0.9 % Sodium Chloride Flush 3 Ml Syringe) 3 ml IVFLUSH QSHIFT COUNTS INCLUDE 234 BEDS AT THE [facility] Last Admin: 10/31/22 01:36 Dose: 3 ml Documented By: LOUANN Labs CBC & Chem 7: 10/31/22 06:08 10/31/22 06:08 Labs: Laboratory Results - last 24 hr 10/30/22 10/30/22 10/30/22 18:03 18:03 18:03 MCV 95.2 MCH 34.2 H MCHC 35.9 RDW 14.4 Plt Count 156 L MPV 9.2 L Immature Gran % (Auto) 0.4 Neut % (Auto) 71.5 Lymph % (Auto) 5.1 L Angelina % (Auto) 19.2 H Eos % (Auto) 2.8 Baso % (Auto) 1.0 Lymph # (Auto) 0.5 L Angelina # (Auto) 1.7 H Eos # (Auto) 0.3 Baso # (Auto) 0.1 Abs Immat Gran (auto) 0.04 H Absolute Neuts (auto) 6.4 Absolute Nucleated RBC 0.020 H Nucleated RBC % (auto) 0.2 Smear Tech's Comments VERIFIED PT 17.5 H INR 1.5 H Anion Gap 13 Estim Creat Clear Calc 74.0 Estimated GFR > 60 POC Glucose Random Glucose 188 H Fasting Glucose Estimat Average Glucose Hemoglobin A1c % Calcium 8.9 Magnesium 1.6 Total Bilirubin 3.3 H Direct Bilirubin AST 49 H ALT 19 Alkaline Phosphatase 129 H Total Protein 6.2 L Albumin 2.9 L COVID-19 (VENESSA) COVID-19 Clin Com Blood Type Antibody Screen Crossmatch Clerical Work Check Hemolysis Bld Bag Check Icterus Blood Bag Check Pre-Trans Blood Type Post-Trans Blood Type Post-Trans KRISTOFER Poly Post-Tx Rxn KRISTOFER Result 10/30/22 10/30/22 10/30/22 20:26 21:41 21:41 MCV 94.2 MCH 33.5 H MCHC 35.5 RDW 14.3 Plt Count 203 D MPV 9.8 Immature Gran % (Auto) 0.3 Neut % (Auto) 72.1 Lymph % (Auto) 7.0 L Angelina % (Auto) 16.7 H Eos % (Auto) 2.8 Baso % (Auto) 1.1 Lymph # (Auto) 0.8 L Angelina # (Auto) 2.0 H Eos # (Auto) 0.3 Baso # (Auto) 0.1 Abs Immat Gran (auto) 0.04 H Absolute Neuts (auto) 8.5 H Absolute Nucleated RBC 0.000 Nucleated RBC % (auto) 0.0 Smear Tech's Comments PT INR Anion Gap Estim Creat Clear Calc Estimated GFR POC Glucose Random Glucose Fasting Glucose Estimat Average Glucose Hemoglobin A1c % Calcium Magnesium Total Bilirubin Direct Bilirubin AST ALT Alkaline Phosphatase Total Protein Albumin COVID-19 (VENESSA) Negative COVID-19 Clin Com See Note Blood Type AB Positive Antibody Screen NEGATIVE Crossmatch See Detail Clerical Work Check Hemolysis Bld Bag Check Icterus Blood Bag Check Pre-Trans Blood Type Post-Trans Blood Type Post-Trans KRISTOFER Poly Post-Tx Rxn KRISTOFER Result 10/30/22 10/30/22 10/31/22 21:48 23:07 01:40 MCV 96.5 MCH 34.8 H MCHC 36.1 H RDW 14.5 Plt Count 209 MPV 9.7 Immature Gran % (Auto) 0.6 H Neut % (Auto) 71.9 Lymph % (Auto) 8.8 L Angelina % (Auto) 16.3 H Eos % (Auto) 1.6 Baso % (Auto) 0.8 Lymph # (Auto) 1.1 L Angelina # (Auto) 2.0 H Eos # (Auto) 0.2 Baso # (Auto) 0.1 Abs Immat Gran (auto) 0.07 H Absolute Neuts (auto) 8.9 H Absolute Nucleated RBC 0.020 H Nucleated RBC % (auto) 0.2 Smear Tech's Comments PT INR Anion Gap Estim Creat Clear Calc Estimated GFR POC Glucose 119 H Random Glucose Fasting Glucose Estimat Average Glucose 80 Hemoglobin A1c % 4.4 Calcium Magnesium Total Bilirubin Direct Bilirubin AST ALT Alkaline Phosphatase Total Protein Albumin COVID-19 (VENESSA) COVID-19 Clin Com Blood Type Antibody Screen Crossmatch Clerical Work Check Hemolysis Bld Bag Check Icterus Blood Bag Check Pre-Trans Blood Type Post-Trans Blood Type Post-Trans KRISTOFER Poly Post-Tx Rxn KRISTOFER Result 10/31/22 10/31/22 10/31/22 01:46 02:18 05:18 MCV MCH MCHC RDW Plt Count MPV Immature Gran % (Auto) Neut % (Auto) Lymph % (Auto) Angelina % (Auto) Eos % (Auto) Baso % (Auto) Lymph # (Auto) Angelina # (Auto) Eos # (Auto) Baso # (Auto) Abs Immat Gran (auto) Absolute Neuts (auto) Absolute Nucleated RBC Nucleated RBC % (auto) Smear Tech's Comments PT INR Anion Gap Estim Creat Clear Calc Estimated GFR POC Glucose 165 H 130 H Random Glucose Fasting Glucose Estimat Average Glucose Hemoglobin A1c % Calcium Magnesium Total Bilirubin Direct Bilirubin AST ALT Alkaline Phosphatase Total Protein Albumin COVID-19 (VENESSA) COVID-19 [facility] Com Blood Type Antibody Screen Crossmatch Clerical Work Check No Error Found Hemolysis Bld Bag Check None in Pre and Post Icterus Blood Bag Check Yes Pre, Yes Post Pre-Trans Blood Type AB POSTIIVE Post-Trans Blood Type AB Positive Post-Trans KRISTOFER Poly NEGATIVE Post-Tx Rxn KRISTOFER Result Not Reportable 10/31/22 10/31/22 10/31/22 06:08 06:08 06:08 MCV 94.1 MCH 33.8 H MCHC 35.9 RDW 13.8 Plt Count 142 L D MPV 9.8 Immature Gran % (Auto) 0.7 H Neut % (Auto) 82.7 H Lymph % (Auto) 4.1 L Angelina % (Auto) 11.8 H Eos % (Auto) 0.2 Baso % (Auto) 0.5 Lymph # (Auto) 0.4 L Angelina # (Auto) 1.3 H Eos # (Auto) 0.0 Baso # (Auto) 0.1 Abs Immat Gran (auto) 0.07 H Absolute Neuts (auto) 8.9 H Absolute Nucleated RBC 0.000 Nucleated RBC % (auto) 0.0 Smear Tech's Comments PT 19.9 H INR 1.7 H Anion Gap 13 Estim Creat Clear Calc 77.7 Estimated GFR > 60 POC Glucose Random Glucose Fasting Glucose 126 H Estimat Average Glucose Hemoglobin A1c % Calcium 8.1 L D Magnesium Total Bilirubin 4.1 H Direct Bilirubin 1.4 H AST 43 H ALT 17 Alkaline Phosphatase 100 Total Protein 5.0 L Albumin 2.4 L COVID-19 (VENESSA) COVID-19 [employer] Com Blood Type Antibody Screen Crossmatch Clerical Work Check Hemolysis Bld Bag Check Icterus Blood Bag Check Pre-Trans Blood Type Post-Trans Blood Type Post-Trans KRISTOFER Poly Post-Tx Rxn KRISTOFER Result Assessment and Plan (1) Acute blood loss anemia: Status: Acute (2) Lower gastrointestinal hemorrhage: Status: Acute Plan 72-year-old male with pertinent history of alcohol use disorder with alcoholic cirrhosis who presents to the emergency department for evaluation of acute lower GI bleed. #.? Acute GI bleed: Will admit with cardiac technologist.? Gastroenterology was consulted from the ER, appreciate assistance.?Noted plans for colonoscopy in a.m..Received 2u FFP and Vit K as per GI recommendations.? Will keep NPO. Also initiated on Rocephin empirically per GI. Transfuse 2 units today, 2 FFPs #.? Acute blood loss anemia: due to above Closely monitor H&H #.? Alcoholic cirrhosis:? Will need paracentesis for ascites.? Paracentesis ordered #.? Alcohol use disorder: Initiating thiamine.? Monitor CIWA. #.? Essential hypertension:? Hold amlodipine and diuretics #. Hyperglycemia: No history of DM. Initiate Accu-Cheks and sliding scale insulin, obtain A1c Med rec pending NPO DVT porphy: low risk due to high INR need for inaptient: GIB, anemia, needs close Time Spent With Patient Time: Total time managing care of this patient today ____ minutes. Quality Stroke Does the patient have a stroke diagnosis?: No VTE Prior VTE?: No VTE Risk Level:: Medical - moderate - high VTE Device Contraindication: N/A - Device Ordered VTE Drug Contraindication: Treatment Not Indicated
[2022-10-31] MEDS: Thiamine HCL 100 MG in 0.9 % Sodium Chloride 100 ML 202 MG IV (08:51)
[2022-10-31] MEDS: cefTRIAXone sodium 1 GM in 0.9 % Sodium Chloride 50 ML IV ×2 (08:53→20:00)
[2022-10-31 08:57] LABS: Glucose, Whole Blood 133 mg/dL (60-115)
--- NOTE | 2022-10-31 11:28 | MHC.CM.PN ---
pt lives with is independent servceis are not expeced gordon needed home no servceis
[2022-10-31 15:53] LABS: Glucose, Whole Blood 121 mg/dL (60-115)
--- NOTE | 2022-10-31 16:31 | P.CONAN_ITS ---
FORMERLY [facility] Active Problems Active Problems: All Active Problems (Updated 10/30/22 @ 23:51 by Sean Asif) Acute blood loss anemia (Acute) Alcohol abuse (Acute) Cirrhosis (Acute) Lower gastrointestinal hemorrhage (Acute) Anemia (Acute) Past Medical History Medical History Alcohol abuse Cirrhosis Family History Family history of problems with anesthesia: No Surgical History History of Problems with Anesthesia: No Social History Social History Household Members: Spouse Housing: House Do you presently have visiting nurse or other home services: No Unable to assess alcohol history related to: Unknown Alcohol intake: current Alcohol intake frequency: a few times a week Alcohol type: wine Patient Tobacco Use Status: Never used Tobacco Advance Directives Date on File: 10/29/22 service: No Meds Allergies Allergy/AdvReac Type Severity Reaction Status Date / Time No Known Allergies Allergy Verified 10/28/22 22:26 Active Medications: Current Medications Dextrose (Dextrose 50 % 25 Gm/50 Ml Syringe) 25 gm IVPUSH Q15M PRN; Protocol PRN Reason: per Hypoglycemia Standing Ord. Glucose (Glucose Gel 15 Gm Gel..Gram.) 15 gm PO Q15M PRN; Protocol PRN Reason: per Hypoglycemia Standing Ord. Ceftriaxone Sodium 1 gm/ (Sodium Chloride) 50 mls @ 100 mls/hr IV Q12H [facility] Last Infusion: 10/31/22 09:57 Dose: Infused Thiamine HCl 100 mg/ Sodium (Chloride) 101 mls @ 202 mls/hr IV DAILY [facility] Last Infusion: 10/31/22 09:57 Dose: Infused Insulin Human Lispro (Insulin Lispro 100 Unit/Ml 3 Ml Vial) 0 unit SUBCUT Q6H [facility]; Protocol Last Admin: 10/31/22 15:50 Dose: Not Given Ondansetron HCl (Ondansetron Hcl 4 Mg/2 Ml Vial) 4 mg IVPUSH Q8H PRN PRN Reason: Nausea and Vomiting Pharmacy Consult (Consult Rx Perform Med Rec) 1 each MISCELLANE ONCE PRN PRN Reason: Consult order Sodium Chloride (0.9 % Sodium Chloride Flush 3 Ml Syringe) 3 ml IVFLUSH QSHIFT [facility] Last Admin: 10/31/22 15:52 Dose: Not Given Home Medications Medication Instructions Recorded Confirmed Last Taken Type amlodipine 5 mg tablet 1.5 tab PO DAILY 10/29/22 10/30/22 10/30/22 History ixekizumab 80 mg/mL subcutaneous 80 mg subcut Q28D 10/29/22 10/30/22 10/28/22 History auto-injector (Taltz Autoinjector) spironolactone 50 mg tablet 1 tab PO BID 10/29/22 10/30/22 10/30/22 History Exam Exam Date and Time: October 31, 2022 1631 Height,Weight and Vital Signs: Height 5 ft 11 in Weight 80 kg Last Vital Signs Temp 98.2 F 10/31/22 15:56 Pulse 92 10/31/22 15:56 Resp 18 10/31/22 15:56 BP 126/69 10/31/22 15:56 Pulse Ox 96 10/31/22 12:03 O2 Del Method 10/31/22 12:03 Pertinent Lab Results Pertinent Lab Results: Laboratory Tests 10/30/22 10/30/22 10/30/22 18:03 18:03 18:03 WBC 9.0 RBC 2.69 L Hgb 9.2 L Hct 25.6 L MCV 95.2 MCH 34.2 H MCHC 35.9 RDW 14.4 Plt Count 156 L MPV 9.2 L Immature Gran % (Auto) 0.4 Neut % (Auto) 71.5 Lymph % (Auto) 5.1 L Treasure % (Auto) 19.2 H Eos % (Auto) 2.8 Baso % (Auto) 1.0 Lymph # (Auto) 0.5 L Treasure # (Auto) 1.7 H Eos # (Auto) 0.3 Baso # (Auto) 0.1 Abs Immat Gran (auto) 0.04 H Absolute Neuts (auto) 6.4 Absolute Nucleated RBC 0.020 H Nucleated RBC % (auto) 0.2 Smear Tech's Comments VERIFIED PT 17.5 H INR 1.5 H Sodium 132 L Potassium 4.6 Chloride 102 Carbon Dioxide 22 Anion Gap 13 BUN 20 H Creatinine 1.05 Estim Creat Clear Calc 74.0 Estimated GFR > 60 POC Glucose Random Glucose 188 H Fasting Glucose Estimat Average Glucose Hemoglobin A1c % Calcium 8.9 Magnesium 1.6 Total Bilirubin 3.3 H Direct Bilirubin AST 49 H ALT 19 Alkaline Phosphatase 129 H Total Protein 6.2 L Albumin 2.9 L COVID-19 (VENESSA) COVID-19 Clin Com Blood Type Antibody Screen Crossmatch Clerical Work Check Hemolysis Bld Bag Check Icterus Blood Bag Check Pre-Trans Blood Type Post-Trans Blood Type Post-Trans KRISTOFER Poly Post-Tx Rxn KRISTOFER Result 10/30/22 10/30/22 10/30/22 20:26 21:41 21:41 WBC 11.8 H RBC 2.78 L Hgb 9.3 L Hct 26.2 L MCV 94.2 MCH 33.5 H MCHC 35.5 RDW 14.3 Plt Count 203 D MPV 9.8 Immature Gran % (Auto) 0.3 Neut % (Auto) 72.1 Lymph % (Auto) 7.0 L Treasure % (Auto) 16.7 H Eos % (Auto) 2.8 Baso % (Auto) 1.1 Lymph # (Auto) 0.8 L Treasure # (Auto) 2.0 H Eos # (Auto) 0.3 Baso # (Auto) 0.1 Abs Immat Gran (auto) 0.04 H Absolute Neuts (auto) 8.5 H Absolute Nucleated RBC 0.000 Nucleated RBC % (auto) 0.0 Smear Tech's Comments PT INR Sodium Potassium Chloride Carbon Dioxide Anion Gap BUN Creatinine Estim Creat Clear Calc Estimated GFR POC Glucose Random Glucose Fasting Glucose Estimat Average Glucose Hemoglobin A1c % Calcium Magnesium Total Bilirubin Direct Bilirubin AST ALT Alkaline Phosphatase Total Protein Albumin COVID-19 (VENESSA) Negative COVID-19 Clin Com See Note Blood Type AB Positive Antibody Screen NEGATIVE Crossmatch See Detail Clerical Work Check Hemolysis Bld Bag Check Icterus Blood Bag Check Pre-Trans Blood Type Post-Trans Blood Type Post-Trans KRISTOFER Poly Post-Tx Rxn KRISTOFER Result 10/30/22 10/30/22 10/31/22 21:48 23:07 01:40 WBC 12.4 H RBC 2.27 L Hgb 7.9 L Hct 21.9 L MCV 96.5 MCH 34.8 H MCHC 36.1 H RDW 14.5 Plt Count 209 MPV 9.7 Immature Gran % (Auto) 0.6 H Neut % (Auto) 71.9 Lymph % (Auto) 8.8 L Treasure % (Auto) 16.3 H Eos % (Auto) 1.6 Baso % (Auto) 0.8 Lymph # (Auto) 1.1 L Treasure # (Auto) 2.0 H Eos # (Auto) 0.2 Baso # (Auto) 0.1 Abs Immat Gran (auto) 0.07 H Absolute Neuts (auto) 8.9 H Absolute Nucleated RBC 0.020 H Nucleated RBC % (auto) 0.2 Smear Tech's Comments PT INR Sodium Potassium Chloride Carbon Dioxide Anion Gap BUN Creatinine Estim Creat Clear Calc Estimated GFR POC Glucose 119 H Random Glucose Fasting Glucose Estimat Average Glucose 80 Hemoglobin A1c % 4.4 Calcium Magnesium Total Bilirubin Direct Bilirubin AST ALT Alkaline Phosphatase Total Protein Albumin COVID-19 (VENESSA) COVID-19 [facility] Blood Type Antibody Screen Crossmatch Clerical Work Check Hemolysis Bld Bag Check Icterus Blood Bag Check Pre-Trans Blood Type Post-Trans Blood Type Post-Trans KRISTOFER Poly Post-Tx Rxn KRISTOFER Result 10/31/22 10/31/22 10/31/22 01:46 02:18 05:18 WBC RBC Hgb Hct MCV MCH MCHC RDW Plt Count MPV Immature Gran % (Auto) Neut % (Auto) Lymph % (Auto) Treasure % (Auto) Eos % (Auto) Baso % (Auto) Lymph # (Auto) Treasure # (Auto) Eos # (Auto) Baso # (Auto) Abs Immat Gran (auto) Absolute Neuts (auto) Absolute Nucleated RBC Nucleated RBC % (auto) Smear Tech's Comments PT INR Sodium Potassium Chloride Carbon Dioxide Anion Gap BUN Creatinine Estim Creat Clear Calc Estimated GFR POC Glucose 165 H 130 H Random Glucose Fasting Glucose Estimat Average Glucose Hemoglobin A1c % Calcium Magnesium Total Bilirubin Direct Bilirubin AST ALT Alkaline Phosphatase Total Protein Albumin COVID-19 (VENESSA) COVID-19 [facility] Blood Type Antibody Screen Crossmatch Clerical Work Check No Error Found Hemolysis Bld Bag Check None in Pre and Post Icterus Blood Bag Check Yes Pre, Yes Post Pre-Trans Blood Type AB POSTIIVE Post-Trans Blood Type AB Positive Post-Trans KRISTOFER Poly NEGATIVE Post-Tx Rxn KRISTOFER Result Not Reportable 10/31/22 10/31/22 10/31/22 06:08 06:08 06:08 WBC 10.7 RBC 2.22 L Hgb 7.5 L Hct 20.9 L* MCV 94.1 MCH 33.8 H MCHC 35.9 RDW 13.8 Plt Count 142 L D MPV 9.8 Immature Gran % (Auto) 0.7 H Neut % (Auto) 82.7 H Lymph % (Auto) 4.1 L Treasure % (Auto) 11.8 H Eos % (Auto) 0.2 Baso % (Auto) 0.5 Lymph # (Auto) 0.4 L Treasure # (Auto) 1.3 H Eos # (Auto) 0.0 Baso # (Auto) 0.1 Abs Immat Gran (auto) 0.07 H Absolute Neuts (auto) 8.9 H Absolute Nucleated RBC 0.000 Nucleated RBC % (auto) 0.0 Smear Tech's Comments PT 19.9 H INR 1.7 H Sodium 135 Potassium 4.2 Chloride 106 Carbon Dioxide 20 L Anion Gap 13 BUN 22 H Creatinine 1.00 Estim Creat Clear Calc 77.7 Estimated GFR > 60 POC Glucose Random Glucose Fasting Glucose 126 H Estimat Average Glucose Hemoglobin A1c % Calcium 8.1 L D Magnesium Total Bilirubin 4.1 H Direct Bilirubin 1.4 H AST 43 H ALT 17 Alkaline Phosphatase 100 Total Protein 5.0 L Albumin 2.4 L COVID-19 (VENESSA) COVID-[employer] Blood Type Antibody Screen Crossmatch Clerical Work Check Hemolysis Bld Bag Check Icterus Blood Bag Check Pre-Trans Blood Type Post-Trans Blood Type Post-Trans KRISTOFER Poly Post-Tx Rxn KRISTOFER Result 10/31/22 10/31/22 08:54 15:49 WBC RBC Hgb Hct MCV MCH MCHC RDW Plt Count MPV Immature Gran % (Auto) Neut % (Auto) Lymph % (Auto) Treasure % (Auto) Eos % (Auto) Baso % (Auto) Lymph # (Auto) Treasure # (Auto) Eos # (Auto) Baso # (Auto) Abs Immat Gran (auto) Absolute Neuts (auto) Absolute Nucleated RBC Nucleated RBC % (auto) Smear Tech's Comments PT INR Sodium Potassium Chloride Carbon Dioxide Anion Gap BUN Creatinine Estim Creat Clear Calc Estimated GFR POC Glucose 133 H 121 H Random Glucose Fasting Glucose Estimat Average Glucose Hemoglobin A1c % Calcium Magnesium Total Bilirubin Direct Bilirubin AST ALT Alkaline Phosphatase Total Protein Albumin COVID-19 (VENESSA) COVID-19 Mark[facility] Blood Type Antibody Screen Crossmatch Clerical Work Check Hemolysis Bld Bag Check Icterus Blood Bag Check Pre-Trans Blood Type Post-Trans Blood Type Post-Trans KRISTOFER Poly Post-Tx Rxn KRISTOFER Result Airway Mallampati Class: II TM Dist: >3cm Neck ROM: Full Assessment and Plan Assessment Anesthesia Assessment: Anesthesia Plan Discussed and Chart Reviewed Final Anesthetic Review Family History of Problems with Anesthesia: No History of Problems with Anesthesia: No NPO: Yes ASA Class: III and Emergency Final Preanesthetic Review: No Changes in Pt Med Stat, Meds/Allgs Chart Reviewed, Consent Obtained/Reviewed and Anes Risks/Benef Reviewed Patient Risk: Intermediate Procedure Risk: Intermediate Anesthetic Plan Anesthetic Plan: MAC: Disposition: Standard PACU
--- NOTE | 2022-10-31 18:27 | PM.OP ---
Brief Operative Note Date of Service: 10/31/22 Pre-op diagnosis: Post-polypectomy bleed Post-op diagnosis: other (Rectal ulcer with visible vessel at site of previous polypectomy) Procedure: Flexible sigmoidoscopy with placement of 3 Resolution clips and Hemospray Surgeon: Martell Arboleda Anesthesia: MAC Was an Grout Machine Operator used for this Procedure?: No Estimated blood loss (mL): 2.0 Pathology: none sent Condition: stable Disposition: PACU
--- NOTE | 2022-10-31 18:29 | PM.EVENT ---
Event Note Date of Service: 10/31/22 Event Note: GI-Flex sig-Full note dictated Findings: 1. In distal rectum, adjacent to a previously placed clip, was an ulcer with a visible vessel c/w a previous polypectomy site, but no active bleeding 2. I placed 3 Resolution clips onto the visible vessel and surrounding ulcer with good deployment and good hemostasis. 3. Hemospray was then applied to the site with good coverage 4. Prominent rectal veins and congested mucosa Plan: Observe, NPO except ice and sips for now, U/S paracentesis tomorrow, F/U labs. D//W patient and in detail. Thanks Time Spent With Patient Time: Total time managing care of this patient today ____ minutes.
[2022-10-31 19:35] LABS: Glucose, Whole Blood 145 mg/dL (60-115)
[2022-10-31 22:05] LABS: MANUAL DIFF FLAG NO
[2022-10-31 22:07] LABS: Basophils Absolute Auto 0.1 X10*3/uL (0.0-0.2); Eosinophils Absolute Auto 0.3 X10*3/uL (0.0-0.4); Eosinophils Percent Auto 3.6 % (0-4); Hemoglobin 9.9 g/dl (14.0-18.0); Imm Gran Abs Auto 0.03 X10*3/uL (0.00-0.03); Imm Gran Pct Auto 0.4 % (0.0-0.4); Lymphocytes Absolute Auto 0.7 X10*3/uL (1.2-4.9); Lymphocytes Percent Auto 9.1 % (20-40); Mean Corpuscular HGB Conc 35.4 g/dl (31.0-36.0); Mean Corpuscular Hemoglobin 32.5 pg (27.0-33.0); Mean Corpuscular Volume 91.8 fL (80.0-98.0); Mean Platelet Volume 9.1 fL (9.4-12.4); Monocytes Absolute Auto 1.2 X10*3/uL (0.1-1.2); Monocytes Percent Auto 15.1 % (2-11); NRBC Pct Auto 0.3 /100WBC (0.0-0.2); Neutrophils Absolute Auto 5.5 x10*3/uL (2.0-8.3); Neutrophils Percent Auto 70.8 % (45-73); Platelet Count 118 X10*3/uL (160-400); Red Blood Count 3.05 X10*6/uL (4.60-5.80); Red Cell Distribution Width 15.9 % (11.0-16.0); White Blood Count 7.8 X10*3/uL (4.8-10.8)
[2022-11-01] VITALS (7 sets, daily range): BP systolic 99–135; BP diastolic 57–72; PULSE 82–106; RESP 16–20; TEMP 36.7–37.9; O2SAT 95–99
[2022-11-01 02:49] LABS: Glucose, Whole Blood 96 mg/dL (60-115)
--- NOTE | 2022-11-01 04:19 | OP_ITS ---
SURGEON: Martell Arboleda MD INDICATIONS: The patient presents for evaluation of persistent lower GI bleeding in relation to previous polypectomy. Full consent has been obtained from him for this, including risks of bleeding and perforation. PREOPERATIVE DIAGNOSIS: Post-polypectomy bleed. POSTOPERATIVE DIAGNOSIS: Post-polypectomy bleed with an associated rectal ulcer and visible vessel. PROCEDURE PERFORMED: Flexible sigmoidoscopy to 60 cm with placement of 3 resolution clips and application of Hemospray. ESTIMATED BLOOD LOSS: COMPLICATIONS: ANESTHESIA: ASSISTANTS: SPECIMENS: DESCRIPTION OF PROCEDURE: The patient was placed in the left lateral decubitus position. A digital rectal exam revealed no abnormalities. The Olympus video pediatric colonoscope was entered into the rectum and advanced easily to 60 cm. I did not bother advancing beyond this as I felt the site of interest was in the rectum, where he had his polypectomy at [facility] last week. There was no blood nor melena anywhere in the colon. There was just some yellow fluid. The scope was slowly withdrawn assessing all mucosal surfaces carefully. Preparation was excellent. I did not visualize any polyps, colitis, nor angiodysplasias in the descending nor sigmoid colon. There was some diverticula but no bleeding. In the rectum I noted a significant amount of spasm, edema, and some congestion of mucosa. The mucosa was friable. I did attempt to retroflex, but this led to more friability and some oozing of blood. Enlarged rectal veins in relation to his portal hypertension were noted as well. With insufflation of air, in the forward viewing position, I was then able to visualize a single clip that had been placed last week. However, just adjacent to this was an ulcer with a visible vessel consistent with a previous polypectomy site. There was no active bleeding. I placed 1 resolution clip directly onto the vessel with good deployment and good hemostasis. I then placed another clip on each side of that clip with good deployment and good hemostasis. The area was irrigated and observed, and there was no bleeding. I then applied Hemospray to the area with good application noted and again no sign of bleeding. At that point, the scope was withdrawn from the patient. He tolerated the procedure well and was returned to the recovery area in stable condition. IMPRESSION: Post-polypectomy bleed with associated ulcer and visible vessel, status post placement of 3 resolution clips and application of Hemospray. PLAN: The patient will be observed. He will be kept on just ice chips and sips of clear liquids for the time being. He is scheduled for a paracentesis tomorrow. He will have followup laboratories as well. As I advised him and his this evening, I will plan to proceed very slowly with advancement of his diet and most likely keep him on just full liquids and supplements for about a week as I am concerned that starting food and solid bowel movements could again irritate the area and cause more bleeding. Given the scenario, I think we have to be very cautious and slow with advancement of his diet. He will receive FFP and packed red blood cells as well as needed, and have followup laboratories tomorrow. This has all been discussed with the patient and his in detail, and they are comfortable with the plan. MD ASHLEE Ferguson/RIMMA / [id number] MTDD
[2022-11-01 07:06] LABS: MANUAL DIFF FLAG NO
[2022-11-01 07:11] LABS: Basophils Absolute Auto 0.1 X10*3/uL (0.0-0.2); Basophils Percent Auto 0.9 % (0-2); Eosinophils Absolute Auto 0.3 X10*3/uL (0.0-0.4); Eosinophils Percent Auto 4.4 % (0-4); Hematocrit 27.1 % (42.0-52.0); Hemoglobin 9.6 g/dl (14.0-18.0); Imm Gran Abs Auto 0.03 X10*3/uL (0.00-0.03); Imm Gran Pct Auto 0.4 % (0.0-0.4); Lymphocytes Absolute Auto 0.8 X10*3/uL (1.2-4.9); Lymphocytes Percent Auto 10.9 % (20-40); Mean Corpuscular HGB Conc 35.4 g/dl (31.0-36.0); Mean Corpuscular Hemoglobin 33.1 pg (27.0-33.0); Mean Corpuscular Volume 93.4 fL (80.0-98.0); Mean Platelet Volume 9.9 fL (9.4-12.4); Monocytes Absolute Auto 1.4 X10*3/uL (0.1-1.2); Monocytes Percent Auto 18.5 % (2-11); Neutrophils Absolute Auto 4.9 x10*3/uL (2.0-8.3); Neutrophils Percent Auto 64.9 % (45-73); Platelet Count 124 X10*3/uL (160-400); Red Cell Distribution Width 16.2 % (11.0-16.0); White Blood Count 7.6 X10*3/uL (4.8-10.8)
[2022-11-01 07:16] LABS: Ammonia 37 umol/L (13-55)
[2022-11-01 07:23] LABS: Alanine Aminotransferase 17 U/L (0-40); Albumin Level 2.6 g/dL (3.5-5.0); Alkaline Phosphatase 89 U/L (39-117); Anion Gap 10 (12-20); Aspartate Amino Transferase 37 U/L (5-37); Bilirubin Total 3.6 mg/dL (0.0-1.0); Blood Urea Nitrogen 19 mg/dL (9-16); Calcium 8.3 mg/dL (8.4-10.2); Carbon Dioxide 24 mmol/L (22-29); Chloride 105 mmol/L (96-108); Estimated Glomerular Filt Rate > 60; Glucose Fasting 83 mg/dL (60-99); Potassium 3.6 mmol/L (3.3-5.1); Sodium 135 mmol/L (135-145); Total Protein 5.2 g/dL (6.5-8.0)
[2022-11-01 07:53] LABS: INTERNATIONAL NORM RATIO 1.5 (0.9-1.1); Prothrombin Time 17.4 SEC (10.0-13.1)
[2022-11-01] MEDS: 0.9 % Sodium Chloride Flush 3 ML SYRINGE IVFLUSH ×2 (08:21→16:07)
[2022-11-01] MEDS: cefTRIAXone sodium 1 GM in 0.9 % Sodium Chloride 50 ML IV (08:21)
[2022-11-01 09:03] LABS: Glucose, Whole Blood 88 mg/dL (60-115)
[2022-11-01] MEDS: Thiamine HCL 100 MG in 0.9 % Sodium Chloride 100 ML 202 MG IV (09:08)
[2022-11-01] MEDS: Albumin Human 25 % 100 ML IV ×3 (09:46→21:16)
--- NOTE | 2022-11-01 10:20 | PC.NURSE ---
report received from overnight RN, medical records specialist per JAN. no c/o pain. Pt states he feels very good today . Scheduled for paracentesis, down for procedure at 1010.
--- NOTE | 2022-11-01 10:22 | HO.POSTANES ---
Post Anesthesia Evaluation Post Anesthesia Evaluation Vital Signs: Vital Signs Temp Pulse Resp BP Pulse Ox O2 Del Method 11/01/22 07:58 99.1 F 106 H 16 118/61 97 Room Air 11/01/22 02:47 100.2 F 100 17 113/72 95 Room Air 10/31/22 23:32 99.2 F 88 16 127/70 10/31/22 23:18 98 F 82 16 132/71 10/31/22 23:16 98 F 82 16 132/71 10/31/22 23:03 98.0 F 98 18 132/71 98 Room Air 10/31/22 22:48 98.7 F 80 16 134/69 10/31/22 22:32 97.9 F 80 16 128/66 10/31/22 22:30 97.9 F 80 16 128/66 Anesthesia: Monitored Mental Status: Awake Pain Control: Satisfactory Nausea/Vomiting: None Hydration: Adequate Anesthesia-Related Issues: No Anes. Related Issues
[2022-11-01] MEDS: Lidocaine HCl 1 % MPF 30 ML VIAL 10 ML SUBCUT (11:06)
[2022-11-01 11:52] LABS: MN% 87.8 %; PMN% 12.2 %; RBC Peritoneal Fluid 0.002 X10*6/uL
[2022-11-01 11:57] LABS: Glucose, Whole Blood 95 mg/dL (60-115)
[2022-11-01 13:22] LABS: BF Shift QC OK YES; Lymphocyte Peritoneal Fl 22 %; Man Diluent Bkgrd OK YES; Neutrophils Peritoneal Fluid 2 %; Other Peritioneal Fl 76 %
--- NOTE | 2022-11-01 13:48 | HO.PM.IMPN ---
Subjective Subjective Date of Service: 11/01/22 Interval History: F/u GI bleed, acute blood loss anemia Review of Systems No active bleed, H/H since discharge and despite transfusion yesterday Physical Exam Vital Signs: Vital Signs: Last Vital Signs Temp 99.1 F 11/01/22 11:44 Pulse 82 11/01/22 11:44 Resp 20 11/01/22 11:44 BP 125/67 11/01/22 11:44 Pulse Ox 97 11/01/22 11:44 O2 Del Method 11/01/22 11:44 BMI result Body Mass Index 0.3 General: AO X 3, no acute distress Resp:? CTA bilateral CVS: S1,S2,RRR GI: +BS, NT, no distention Skin: No rash Neuro:? motor grossly intact Psych: appropriate affect Objective Data Active Medications Dextrose (Dextrose 50 % 25 Gm/50 Ml Syringe) 25 gm IVPUSH Q15M PRN; Protocol PRN Reason: per Hypoglycemia Standing Ord. Glucose (Glucose Gel 15 Gm Gel..Gram.) 15 gm PO Q15M PRN; Protocol PRN Reason: per Hypoglycemia Standing Ord. Ceftriaxone Sodium 1 gm/ (Sodium Chloride) 50 mls @ 100 mls/hr IV Q12H [facility] Last Infusion: 11/01/22 09:12 Dose: 0 mls/hr Documented By: GERSON Thiamine HCl 100 mg/ Sodium (Chloride) 101 mls @ 202 mls/hr IV DAILY [facility] Last Infusion: 11/01/22 09:53 Dose: 0 mls/hr Documented By: GERSON Albumin Human (Kedbumin 25 %) 100 mls @ 100 mls/hr IV Q6H [facility] Stop: 11/02/22 04:14 Last Infusion: 11/01/22 12:37 Dose: 0 mls/hr Documented By: GERSON Insulin Human Lispro (Insulin Lispro 100 Unit/Ml 3 Ml Vial) 0 unit SUBCUT Q6H [facility]; Protocol Last Admin: 11/01/22 09:25 Dose: Not Given Documented By: GERSON Non-Admin Reason: No Insulin Coverage Ondansetron HCl (Ondansetron Hcl 4 Mg/2 Ml Vial) 4 mg IVPUSH Q8H PRN PRN Reason: Nausea and Vomiting Pharmacy Consult (Consult Rx Perform Med Rec) 1 each MISCELLANE ONCE PRN PRN Reason: Consult order Sodium Chloride (0.9 % Sodium Chloride Flush 3 Ml Syringe) 3 ml IVFLUSH QSHIFT [facility] Last Admin: 11/01/22 08:21 Dose: 3 ml Documented By: GERSON Labs CBC & Chem 7: 11/01/22 06:39 11/01/22 06:39 Labs: Laboratory Results - last 24 hr 10/30/22 10/31/22 10/31/22 21:41 15:49 19:29 MCV MCH MCHC RDW Plt Count MPV Immature Gran % (Auto) Neut % (Auto) Lymph % (Auto) [place] % (Auto) Eos % (Auto) Baso % (Auto) Lymph # (Auto) [place] # (Auto) Eos # (Auto) Baso # (Auto) Abs Immat Gran (auto) Absolute Neuts (auto) Absolute Nucleated RBC Nucleated RBC % (auto) PT INR Anion Gap Estim Creat Clear Calc Estimated GFR POC Glucose 121 H 145 H Fasting Glucose Calcium Total Bilirubin Direct Bilirubin AST ALT Alkaline Phosphatase Ammonia Total Protein Albumin Peritoneal WBC Peritoneal RBC Periton Neutrophils Periton Lymphocytes Peritoneal Other Cells Blood Type AB Positive Antibody Screen NEGATIVE Crossmatch See Detail 10/31/22 11/01/22 11/01/22 22:01 02:45 06:39 MCV 91.8 93.4 MCH 32.5 33.1 H MCHC 35.4 35.4 RDW 15.9 16.2 H Plt Count 118 L 124 L MPV 9.1 L 9.9 Immature Gran % (Auto) 0.4 0.4 Neut % (Auto) 70.8 64.9 Lymph % (Auto) 9.1 L 10.9 L [place] % (Auto) 15.1 H 18.5 H Eos % (Auto) 3.6 4.4 H Baso % (Auto) 1.0 0.9 Lymph # (Auto) 0.7 L 0.8 L [place] # (Auto) 1.2 1.4 H Eos # (Auto) 0.3 0.3 Baso # (Auto) 0.1 0.1 Abs Immat Gran (auto) 0.03 0.03 Absolute Neuts (auto) 5.5 4.9 Absolute Nucleated RBC 0.020 H 0.000 Nucleated RBC % (auto) 0.3 H 0.0 PT INR Anion Gap Estim Creat Clear Calc Estimated GFR POC Glucose 96 Fasting Glucose Calcium Total Bilirubin Direct Bilirubin AST ALT Alkaline Phosphatase Ammonia Total Protein Albumin Peritoneal WBC Peritoneal RBC Periton Neutrophils Periton Lymphocytes Peritoneal Other Cells Blood Type Antibody Screen Crossmatch 11/01/22 11/01/22 11/01/22 06:39 06:39 06:39 MCV MCH MCHC RDW Plt Count MPV Immature Gran % (Auto) Neut % (Auto) Lymph % (Auto) [place] % (Auto) Eos % (Auto) Baso % (Auto) Lymph # (Auto) [place] # (Auto) Eos # (Auto) Baso # (Auto) Abs Immat Gran (auto) Absolute Neuts (auto) Absolute Nucleated RBC Nucleated RBC % (auto) PT 17.4 H INR 1.5 H Anion Gap 10 L Estim Creat Clear Calc 95.0 Estimated GFR > 60 POC Glucose Fasting Glucose 83 Calcium 8.3 L Total Bilirubin 3.6 H Direct Bilirubin 2.0 H AST 37 ALT 17 Alkaline Phosphatase 89 Ammonia 37 Total Protein 5.2 L Albumin 2.6 L Peritoneal WBC Peritoneal RBC Periton Neutrophils Periton Lymphocytes Peritoneal Other Cells Blood Type Antibody Screen Crossmatch 11/01/22 11/01/22 11/01/22 08:58 10:40 11:53 MCV MCH MCHC RDW Plt Count MPV Immature Gran % (Auto) Neut % (Auto) Lymph % (Auto) [place] % (Auto) Eos % (Auto) Baso % (Auto) Lymph # (Auto) [place] # (Auto) Eos # (Auto) Baso # (Auto) Abs Immat Gran (auto) Absolute Neuts (auto) Absolute Nucleated RBC Nucleated RBC % (auto) PT INR Anion Gap Estim Creat Clear Calc Estimated GFR POC Glucose 88 95 Fasting Glucose Calcium Total Bilirubin Direct Bilirubin AST ALT Alkaline Phosphatase Ammonia Total Protein Albumin Peritoneal WBC 0.230 Peritoneal RBC 0.002 Periton Neutrophils 2 Periton Lymphocytes 22 Peritoneal Other Cells 76 Blood Type Antibody Screen Crossmatch Microbiology Microbiology Results: Microbiology 10/30/22 22:48 Blood Culture - Preliminary Blood - Venous No growth after 24 hours. 10/30/22 22:48 Blood Culture - Preliminary Blood - Venous No growth after 24 hours. Assessment and Plan (1) Acute blood loss anemia: Status: Acute (2) Lower gastrointestinal hemorrhage: Status: Acute Plan 72-year-old male with pertinent history of alcohol use disorder with alcoholic cirrhosis who presents to the emergency department for evaluation of acute lower GI bleed. #.? Acute GI bleed: Will admit with gis manager.? Gastroenterology was consulted from the ER, appreciate assistance.?Noted plans for colonoscopy in a.m..Received 2u FFP and Vit K as per GI recommendation. Also initiated on Rocephin empirically per GI. Transfuse 2 units today, 2 FFPs h/h 9.6 GI-Flex sig-Full note dictated Findings: 1. In distal rectum, adjacent to a previously placed clip, was an ulcer with a visible vessel c/w a previous polypectomy site, but no active bleeding 2. I placed 3 Resolution clips onto the visible vessel and surrounding ulcer with good deployment and good hemostasis. 3. Hemospray was then applied to the site with good coverage 4. Prominent rectal veins and congested mucosa. will start clear liquid diet #.? Acute blood loss anemia: due to above Closely monitor H&H #.? Alcoholic cirrhosis:? Will need paracentesis for ascites.? Paracentesis ordered #.? Alcohol use disorder: Initiating thiamine.? Monitor CIWA. #.? Essential hypertension:? Hold amlodipine and diuretics #. Hyperglycemia: No history of DM. Initiate Accu-Cheks and sliding scale insulin, obtain A1c NPO DVT porphy: low risk due to high INR need for inaptient: GIB,AScts - anemia, needs close monitin,paracentesis Time Spent With Patient Time: Total time managing care of this patient today ____ minutes. Quality Stroke Does the patient have a stroke diagnosis?: No VTE Prior VTE?: No VTE Risk Level:: Medical - moderate - high VTE Device Contraindication: N/A - Device Ordered VTE Drug Contraindication: Treatment Not Indicated
[2022-11-01 16:00] LABS: Glucose, Whole Blood 98 mg/dL (60-115)
--- NOTE | 2022-11-01 19:27 | PM.GIPN ---
Subjective Subjective Date of Service: 11/01/22 Interval History: Feeling better. No bleeding. Tolerating liquids. Abdomen feels much better after nearly 8L of ascites drained by U/S today. Critical Care Time (minutes): 0 Physical Exam Vital Signs: Vital Signs: Last Vital Signs Temp 98.0 F 11/01/22 19:01 Pulse 92 11/01/22 19:01 Resp 18 11/01/22 19:01 BP 111/65 11/01/22 19:01 Pulse Ox 97 11/01/22 19:01 O2 Del Method 11/01/22 19:01 BMI result Body Mass Index 0.3 Const: General: cooperative, comfortable, no acute distress, well developed, alert, awake and Physically active Orientation/consciousness: patient oriented x3 GI: Other: Abd-Much softer, +BS, NT, no mass/rebound/guarding Neuro: General: patient oriented x3 Objective Data Labs CBC & Chem 7: 11/01/22 06:39 11/01/22 06:39 Labs: Laboratory Results - last 24 hr 10/30/22 10/31/22 10/31/22 21:41 19:29 22:01 WBC 7.8 RBC 3.05 L D Hgb 9.9 L D Hct 28.0 L D MCV 91.8 MCH 32.5 MCHC 35.4 RDW 15.9 Plt Count 118 L MPV 9.1 L Immature Gran % (Auto) 0.4 Neut % (Auto) 70.8 Lymph % (Auto) 9.1 L [place] % (Auto) 15.1 H Eos % (Auto) 3.6 Baso % (Auto) 1.0 Lymph # (Auto) 0.7 L [place] # (Auto) 1.2 Eos # (Auto) 0.3 Baso # (Auto) 0.1 Abs Immat Gran (auto) 0.03 Absolute Neuts (auto) 5.5 Absolute Nucleated RBC 0.020 H Nucleated RBC % (auto) 0.3 H PT INR Sodium Potassium Chloride Carbon Dioxide Anion Gap BUN Creatinine Estim Creat Clear Calc Estimated GFR POC Glucose 145 H Fasting Glucose Calcium Total Bilirubin Direct Bilirubin AST ALT Alkaline Phosphatase Ammonia Total Protein Albumin Peritoneal WBC Peritoneal RBC Periton Neutrophils Periton Lymphocytes Peritoneal Other Cells Blood Type AB Positive Antibody Screen NEGATIVE Crossmatch See Detail 12/13/22 12/13/22 12/13/22 02:45 06:39 06:39 WBC 7.6 RBC 2.90 L Hgb 9.6 L Hct 27.1 L MCV 93.4 MCH 33.1 H MCHC 35.4 RDW 16.2 H Plt Count 124 L MPV 9.9 Immature Gran % (Auto) 0.4 Neut % (Auto) 64.9 Lymph % (Auto) 10.9 L [place] % (Auto) 18.5 H Eos % (Auto) 4.4 H Baso % (Auto) 0.9 Lymph # (Auto) 0.8 L [place] # (Auto) 1.4 H Eos # (Auto) 0.3 Baso # (Auto) 0.1 Abs Immat Gran (auto) 0.03 Absolute Neuts (auto) 4.9 Absolute Nucleated RBC 0.000 Nucleated RBC % (auto) 0.0 PT 17.4 H INR 1.5 H Sodium Potassium Chloride Carbon Dioxide Anion Gap BUN Creatinine Estim Creat Clear Calc Estimated GFR POC Glucose 96 Fasting Glucose Calcium Total Bilirubin Direct Bilirubin AST ALT Alkaline Phosphatase Ammonia Total Protein Albumin Peritoneal WBC Peritoneal RBC Periton Neutrophils Periton Lymphocytes Peritoneal Other Cells Blood Type Antibody Screen Crossmatch 11/01/22 11/01/22 11/01/22 06:39 06:39 08:58 WBC RBC Hgb Hct MCV MCH MCHC RDW Plt Count MPV Immature Gran % (Auto) Neut % (Auto) Lymph % (Auto) [place] % (Auto) Eos % (Auto) Baso % (Auto) Lymph # (Auto) [place] # (Auto) Eos # (Auto) Baso # (Auto) Abs Immat Gran (auto) Absolute Neuts (auto) Absolute Nucleated RBC Nucleated RBC % (auto) PT INR Sodium 135 Potassium 3.6 Chloride 105 Carbon Dioxide 24 Anion Gap 10 L BUN 19 H Creatinine 0.77 Estim Creat Clear Calc 95.0 Estimated GFR > 60 POC Glucose 88 Fasting Glucose 83 Calcium 8.3 L Total Bilirubin 3.6 H Direct Bilirubin 2.0 H AST 37 ALT 17 Alkaline Phosphatase 89 Ammonia 37 Total Protein 5.2 L Albumin 2.6 L Peritoneal WBC Peritoneal RBC Periton Neutrophils Periton Lymphocytes Peritoneal Other Cells Blood Type Antibody Screen Crossmatch 11/01/22 11/01/22 11/01/22 10:40 11:53 15:56 WBC RBC Hgb Hct MCV MCH MCHC RDW Plt Count MPV Immature Gran % (Auto) Neut % (Auto) Lymph % (Auto) [place] % (Auto) Eos % (Auto) Baso % (Auto) Lymph # (Auto) [place] # (Auto) Eos # (Auto) Baso # (Auto) Abs Immat Gran (auto) Absolute Neuts (auto) Absolute Nucleated RBC Nucleated RBC % (auto) PT INR Sodium Potassium Chloride Carbon Dioxide Anion Gap BUN Creatinine Estim Creat Clear Calc Estimated GFR POC Glucose 95 98 Fasting Glucose Calcium Total Bilirubin Direct Bilirubin AST ALT Alkaline Phosphatase Ammonia Total Protein Albumin Peritoneal WBC 0.230 Peritoneal RBC 0.002 Periton Neutrophils 2 Periton Lymphocytes 22 Peritoneal Other Cells 76 Blood Type Antibody Screen Crossmatch Microbiology Microbiology Results: Microbiology 11/01/22 10:40 Ascites Fluid Gram Stain - Final 10/30/22 22:48 Blood - Venous Blood Culture - Preliminary No growth after 24 hours. 10/30/22 22:48 Blood - Venous Blood Culture - Preliminary No growth after 24 hours. Procedures Date of Service Date of Service: 11/01/22 Progress Note: A&P Assessment and plan (1) Acute blood loss anemia: Status: Acute Assessment and Plan: Imp: No recurrent bleeding since his procedure 24 hours ago. Hgb is stable. Denies pain. Rec: Advance to Full liquids in AM, 11/02. I advised him to stay on a basically full liquid diet through the weekend and resume a regular diet on Wednesday 11/07. I told him to add a stool softener to minimize straining at that point. If he is stable he should be able to be discharged on 11/02. I told him to follow up with Dr. Cross in [place], or to certainly come back here with any acute issues. He was comfortable with this plan. (2) Alcoholic cirrhosis of liver with ascites: Status: Acute Assessment and Plan: Imp: Cirrhosis with ascites is stable and without any significant decompensation. Feels much better after the paracentesis. The fluid is negative for signs of SBP. Rec: D/C Ceftriaxone. I added Spironolactone 50mg BID to his regimen. F/U chemistries in AM. I told him to follow up with Dr. Cross in [place] regarding his liver. He was comfortable with that plan as well. Thanks. Time Spent With Patient Time: Total time managing care of this patient today ____ minutes. Quality Stroke Does the patient have a stroke diagnosis?: No VTE Prior VTE?: No VTE Risk Level:: Medical - moderate - high VTE Device Contraindication: N/A - Device Ordered VTE Drug Contraindication: Treatment Not Indicated
[2022-11-01 21:13] LABS: Glucose, Whole Blood 141 mg/dL (60-115)
[2022-11-01] MEDS: Spironolactone 25 MG TABLET 50 MG PO (21:13)
[2022-11-02] MEDS: 0.9 % Sodium Chloride Flush 3 ML SYRINGE IVFLUSH ×2 (01:28→09:14)
[2022-11-02 03:26] VITALS: BP 100/58; PULSE 93; RESP 14; TEMP 36.9; O2SAT 96
[2022-11-02] MEDS: Albumin Human 25 % 100 ML IV ×2 (03:31→09:14)
[2022-11-02 03:38] LABS: Glucose, Whole Blood 86 mg/dL (60-115)
[2022-11-02 06:00] VITALS: BP 102/59; PULSE 78; RESP 16; TEMP 36.7; O2SAT 97
[2022-11-02 06:15] LABS: MANUAL DIFF FLAG NO
[2022-11-02 06:27] LABS: Basophils Absolute Auto 0.1 X10*3/uL (0.0-0.2); Basophils Percent Auto 0.8 % (0-2); Eosinophils Absolute Auto 0.2 X10*3/uL (0.0-0.4); Eosinophils Percent Auto 3.2 % (0-4); Hematocrit 26.4 % (42.0-52.0); Hemoglobin 9.2 g/dl (14.0-18.0); Imm Gran Abs Auto 0.02 X10*3/uL (0.00-0.03); Imm Gran Pct Auto 0.3 % (0.0-0.4); Lymphocytes Absolute Auto 0.6 X10*3/uL (1.2-4.9); Mean Corpuscular HGB Conc 34.8 g/dl (31.0-36.0); Mean Corpuscular Hemoglobin 32.6 pg (27.0-33.0); Mean Corpuscular Volume 93.6 fL (80.0-98.0); Mean Platelet Volume 9.5 fL (9.4-12.4); Monocytes Absolute Auto 1.4 X10*3/uL (0.1-1.2); Neutrophils Absolute Auto 4.7 x10*3/uL (2.0-8.3); Neutrophils Percent Auto 66.7 % (45-73); Platelet Count 125 X10*3/uL (160-400); Red Blood Count 2.82 X10*6/uL (4.60-5.80); Red Cell Distribution Width 16.3 % (11.0-16.0); White Blood Count 7.1 X10*3/uL (4.8-10.8)
[2022-11-02 06:53] LABS: Anion Gap 14 (12-20); Blood Urea Nitrogen 12 mg/dL (9-16); Calcium 8.6 mg/dL (8.4-10.2); Carbon Dioxide 22 mmol/L (22-29); Chloride 103 mmol/L (96-108); Creatinine Clr Calc Pharmacy 101.6; Estimated Glomerular Filt Rate > 60; Glucose Fasting 80 mg/dL (60-99); Potassium 3.6 mmol/L (3.3-5.1); Sodium 135 mmol/L (135-145)
[2022-11-02 07:25] LABS: Glucose, Whole Blood 94 mg/dL (60-115)
[2022-11-02 07:37] VITALS: BP 111/60; PULSE 93; RESP 18; TEMP 36.3; O2SAT 97
[2022-11-02] MEDS: Spironolactone 25 MG TABLET 50 MG PO (08:30)
[2022-11-02] MEDS: Thiamine HCL 100 MG in 0.9 % Sodium Chloride 100 ML 202 MG IV (08:30)
[2022-11-02 10:06] VITALS: PULSE 109; O2SAT 97
[2022-11-02 11:18] VITALS: BP 116/67; PULSE 107; RESP 18; TEMP 36.6; O2SAT 97
[2022-11-02 11:26] LABS: Glucose, Whole Blood 116 mg/dL (60-115)
--- NOTE | 2022-11-02 12:06 | MHC.CM.PN ---
pt dcd home no skilled sercveis ordered by
--- NOTE | 2022-11-02 13:52 | PM.DS ---
DS: Providers Provider Date of Service: 11/02/22 Date of admission: 10/30/22 21:39 Primary care physician: Ashutosh Aguilar MD Consults: 10/31/22 07:45 Consult to Gastroenterology Routine Consulting Provider: Martell Arboleda Reason for consultation: gi bleed Has provider been notified: No DS: Diagnosis Discharge Diagnosis (1) Acute blood loss anemia: Status: Acute (2) Alcoholic cirrhosis of liver with ascites: Status: Acute (3) Alcohol abuse: Status: Acute (4) Cirrhosis: Status: Acute (5) Lower gastrointestinal hemorrhage: Status: Acute (6) Anemia: Status: Acute DS: Summary Hospital Course Hospital Course: 72-year-old male with pertinent history of alcohol use disorder with alcoholic cirrhosis who presents to the emergency department for evaluation of acute lower GI bleed.? He had a colonoscopy on 10/24 when polypectomy was done.? On the day of presentation, patient started having painless lower GI bleed.? He saw bright red blood passing through rectum.? Minimal abdominal discomfort.? No fever, chills, chest discomfort, palpitation, shortness of breath, changes in urinary habits.? Drank 2 glasses of wine on the day of presentation.? No history of alcohol withdrawal.? Patient states when EMS came and he tried to get up from seated position, he had dizziness/lightheadedness and almost passed out.? Not on any blood thinners. Hospital course: Patient was admitted for acute blood loss anemia due to GI bleed: Received PRBC and FFP as well as seen by GI and had sigmoidoscopy: Found the ulcer at previous polypectomy site in the rectum-subsequently clips were placed and hemostasis achieved. Subsequently patient does not have any bleeding, H&H stable around 9.6 range. Currently GI recommended to be on full liquid diet for a week or so, during this time patient is to follow up outpatient with his GI. Further management outpatient. Monitor CBC within 1 week outpatient. Possible cirrhosis says and ascites: Had paracentesis yesterday seems to be fine afterwards. Given albumin. Fluid analysis discussed with GI -seems less likely SBP-asymptomatic, no leukocytosis or fever or any abdominal pain, culture and pathology pending -need to follow-up out patiently with PCP . GI recommended spironolactone to be continued. Monitor his BMP out patiently with PCP and further cirrhosis and ascites management outpatient with GI.follow up with Dr. Cross in [place] regarding his liver. Above management discussed the patient in detail length. time spent 50min. Time Spent with Patient Time attestation: Total time managing care of this patient today ____ minutes. Discharge coordination time: Greater than 30 minutes Quality: Safe Use of Opioids Does Pt have an Active Cancer Diagnosis on the Problem List?: No Quality: Stroke Does the patient have a stroke diagnosis?: No Physical Exam Vital Signs: Vital Signs: Last Vital Signs Temp 97.8 F 11/02/22 11:18 Pulse 107 H 11/02/22 11:18 Resp 18 11/02/22 11:18 BP 116/67 11/02/22 11:18 Pulse Ox 97 11/02/22 11:18 O2 Del Method 11/02/22 11:18 BMI result Body Mass Index 0.3 Appearance: Alert.? Oriented X3.? not in distress.? Eyes: Pupils equal, round and reactive to light.? Sclera nonicteric.? ENT: Pharynx normal.? Moist mucous membranes. cvs: rrr, [id number] . res: clear to auscultation ,no rhonchii or wheezing abd: no rebound or guarding ,nt, bs present. ext pulses present , no cyanosis . neuro: axo3 , nonfocal. Says DS: Data Data Completed and Pending Pending studies at discharge: Pending at discharge 11/01/22 08:00 Cytology [PTH] Routine Labs on day of discharge: Laboratory Results - last 24 hr 11/01/22 11/01/22 11/02/22 15:56 21:07 03:33 WBC RBC Hgb Hct MCV MCH MCHC RDW Plt Count MPV Immature Gran % (Auto) Neut % (Auto) Lymph % (Auto) [place] % (Auto) Eos % (Auto) Baso % (Auto) Lymph # (Auto) [place] # (Auto) Eos # (Auto) Baso # (Auto) Abs Immat Gran (auto) Absolute Neuts (auto) Absolute Nucleated RBC Nucleated RBC % (auto) Sodium Potassium Chloride Carbon Dioxide Anion Gap BUN Creatinine Estim Creat Clear Calc Estimated GFR POC Glucose 98 141 H 86 Fasting Glucose Calcium 11/02/22 11/02/22 11/02/22 05:52 05:52 07:05 WBC 7.1 RBC 2.82 L Hgb 9.2 L Hct 26.4 L MCV 93.6 MCH 32.6 MCHC 34.8 RDW 16.3 H Plt Count 125 L MPV 9.5 Immature Gran % (Auto) 0.3 Neut % (Auto) 66.7 Lymph % (Auto) 9.0 L [place] % (Auto) 20.0 H Eos % (Auto) 3.2 Baso % (Auto) 0.8 Lymph # (Auto) 0.6 L [place] # (Auto) 1.4 H Eos # (Auto) 0.2 Baso # (Auto) 0.1 Abs Immat Gran (auto) 0.02 Absolute Neuts (auto) 4.7 Absolute Nucleated RBC 0.000 Nucleated RBC % (auto) 0.0 Sodium 135 Potassium 3.6 Chloride 103 Carbon Dioxide 22 Anion Gap 14 BUN 12 Creatinine 0.72 Estim Creat Clear Calc 101.6 Estimated GFR > 60 POC Glucose 94 Fasting Glucose 80 Calcium 8.6 11/02/22 11:16 WBC RBC Hgb Hct MCV MCH MCHC RDW Plt Count MPV Immature Gran % (Auto) Neut % (Auto) Lymph % (Auto) [place] % (Auto) Eos % (Auto) Baso % (Auto) Lymph # (Auto) [place] # (Auto) Eos # (Auto) Baso # (Auto) Abs Immat Gran (auto) Absolute Neuts (auto) Absolute Nucleated RBC Nucleated RBC % (auto) Sodium Potassium Chloride Carbon Dioxide Anion Gap BUN Creatinine Estim Creat Clear Calc Estimated GFR POC Glucose 116 H Fasting Glucose Calcium Preliminary micro results at discharge 11/01/22 10:40 Routine Culture - Preliminary Ascites Fluid No growth to date. Anaerobic Culture - Preliminary No growth to date. 10/30/22 22:48 Blood Culture - Preliminary Blood - Venous No growth after 48 hours. 10/30/22 22:48 Blood Culture - Preliminary Blood - Venous No growth after 48 hours. Discharge Plan Discharge Anticipated Discharge Date/Time: 11/02/22 13:39 Patient Disposition: Home, Self-Care Discharge Diagnosis: Alcohol liver disease, GI bleed Referrals: Ashutosh Aguilar MD [Primary Care Provider] - 1 Week Discharge Medications: New thiamine HCl (vitamin B1) 100 mg tablet 100 mg PO DAILY Qty: 30 0RF folic acid 1 mg tablet 1 mg PO DAILY Qty: 30 0RF Continued amlodipine 5 mg tablet 1.5 tab PO DAILY spironolactone 50 mg tablet 1 tab PO BID Taltz Autoinjector 80 mg/mL auto-injector 80 mg subcut Q28D Discharge Orders: Discharge Order (Routine); Ordered 11/02/22 Ordered By: Анна Early Diet: Advance to usual diet Activity on Discharge: As tolerated Stand Alone Forms: Patient Portal Discharge page Other Ambulatory Orders: Basic Metabolic Panel (Routine) Timeframe: 1 Week Facility: [facility] - Location: Laboratory Ordered By: Анна Early Complete Blood Count no Diff (Routine) Timeframe: 1 Week Facility: [facility] - Location: Laboratory Ordered By: Анна Early Care Plan Goals: Patient was admitted for acute blood loss anemia due to GI bleed: Received PRBC and FFP as well as seen by GI and had sigmoidoscopy: Found the ulcer at previous polypectomy site in the rectum-subsequently clips were placed and hemostasis achieved. Subsequently patient does not have any bleeding, H&H stable around 9.6 range. Currently GI recommended to be on full liquid diet for a week or so, during this time patient is to follow up outpatient with his GI. Further management outpatient. Monitor CBC within 1 week outpatient. Possible cirrhosis says and ascites: Had paracentesis yesterday seems to be fine afterwards. Given albumin.culture and pathology pending -need to follow-up out patiently with PCP . GI recommended spironolactone to be continued. Monitor his BMP out patiently with PCP and further cirrhosis and ascites management outpatient with GI. follow up with Dr. Cross in [place] regarding his liver. Above management discussed the patient in detail length. Health Concerns: As above. Plan of Treatment: As above. Assessment: As above. Patient Instructions: Gastrointestinal Bleeding (DC), Cirrhosis (DC), Ascites (DC)
--- NOTE | 2022-11-05 02:51 | PC.NURSE ---
*EDIT* Pt. received 2 units of PRBC's during overnight shift on 10/30/22 into 10/31/22. Correct volume that was infused on first unit should be 350mls. Edit needed per laboratory.
== END 2022-11-02 15:22 | disposition home or self-care (01) | DRG 920 ==
LOC: HO.ED 17:53 → HO.EDOVER 21:45 → HO.IMC 23:03 → HO.S3 23:11 → HO.IMC 23:19
PROVIDERS: Internal Medicine; Radiology Diagnostic Radiology; Admitting Provider Student in an Organized Health Care Education/Training Program; Emergency Provider Internal Medicine; PCP Family Medicine; Visit Provider Internal Medicine
PROC: 0DJD8ZZ Inspection of Lower Intestinal Tract, Via Natural or Artificial Opening Endoscopic (ICD-10-PCS; CPT 45378; principal; 2022-10-31 17:30)
DX: K91.840 Postprocedural hemorrhage of a digestive system organ or structure following a digestive system procedure (principal); D62 Acute posthemorrhagic anemia; K62.6 Ulcer of anus and rectum; I10 Essential (primary) hypertension; Y84.8 Other medical procedures as the cause of abnormal reaction of the patient, or of later complication, without mention of misadventure at the time of the procedure; K70.31 Alcoholic cirrhosis of liver with ascites; R73.9 Hyperglycemia, unspecified; Z20.822 Contact with and (suspected) exposure to COVID-19; Z79.899 Other long term (current) drug therapy
CPT/HCPCS: 36415; 49083; 80048; 80053; 80076; 82140; 82947; 83036; 83735; 85025; 85610; 86078; 86850; 86900; 86901; 86923; 87040; 87070; 87073; 87205; 87635; 88112; 89051; 97161; 99285; J0696; J3411; J3430; P9016; P9017; P9047

== ENCOUNTER 2024-07-11 19:06 | Emergency (ER) | payer MEDICARE, OTHER, SELFPAY ==
--- NOTE | ~2024-07-11 | CT_ITS ---
EXAMINATION: CT HEAD WITHOUT CONTRAST CT CERVICAL SPINE WITHOUT CONTRAST CLINICAL INFORMATION: Fall. Neck pain. Head injury. COMPARISON: None available. TECHNIQUE: Contiguous axial imaging was performed from the skull base to vertex without intravenous administration of contrast. Contiguous axial imaging was performed from the upper chest through the skull base without intravenous administration of contrast. Coronal and sagittal reformats were obtained at the acquisition workstation. This CT examination was performed using dose optimization techniques as appropriate, variously including the following: *Automated exposure control. *Adjustment of mA and/or kV according to patient size (this includes techniques or standardized protocols for targeted exams where dose is matched to indication/reason for exam; i.e. extremities or head). *Use of iterative reconstruction technique. DLP: 1054 mGy-cm FINDINGS: Head: There is no evidence of acute intracranial hemorrhage or edematous territorial infarction. Multifocal lacunar infarcts of the deep nuclei. No additional loss of rock-white matter differentiation. Scattered and partially confluent hypoattenuation in the periventricular and deep white matter are consistent with moderate microangiopathy. Proportional prominence of the ventricles and sulcal spaces without evidence of obstructive hydrocephalus. No abnormal mass effect or midline shift. No extra-axial fluid collections. Calcific atherosclerotic disease of the intracranial internal carotid arteries. No hyperdense vessel sign. No acute soft tissue or osseous abnormalities. Mild mucosal thickening of the paranasal sinuses. The mastoid air cells and middle ear cavities are clear. Cervical Spine: The atlantooccipital and atlantoaxial articulations remain well aligned. Mildly to anterolisthesis of C7 on T1. Otherwise, there is anatomic alignment of the vertebral bodies and posterior elements. Mildly displaced fractures of the anterior-inferior corner of C4 and anterior- superior corner of C6. Mild prevertebral edema from C3-C6. No evidence of additional acute fracture or subluxation. The vertebral body heights are maintained. Advanced degenerative disc disease from C6-T1. Moderate degenerative disc disease at all additional levels. Facet and uncovertebral joint arthropathy leads to osseous encroachment on the neural foramina from C3-T1. There is no prevertebral soft tissue swelling. The thyroid gland and remaining cervical soft tissues are within normal limits. Prominent left-sided pleural effusion. CT/CT cervical spine wo IV con IMPRESSION: 1. No evidence of acute intracranial hemorrhage or edematous territorial infarction. Moderate underlying microangiopathy and generalized cerebral volume loss. 2. Mildly displaced fractures of the anterior-inferior corner of C4 and anterior- superior corner of C6. Mild prevertebral edema from C3-C6. 3. Moderate multilevel degenerative spondyloarthropathy of the cervical spine. 4. Prominent left-sided pleural effusion. Electronically signed by: Brayan Joel DO 07/11/2024 09:39 PM EDT
[2024-07-11 19:17] VITALS: BP 120/76; BP 134/81; PULSE 90; PULSE 98; RESP 17; TEMP 36.8; O2SAT 95; O2SAT 96; BMI 23.4
[2024-07-11 19:20] VITALS: BP 134/81; PULSE 90; RESP 17; TEMP 36.8; O2SAT 96
--- NOTE | 2024-07-11 19:36 | ED_ITS ---
HPI - Fall General Chief Complaint: Fall Stated Complaint: FALL. -LOC Time Seen by Provider: 07/11/24 19:24 Source: patient and EMS Mode of arrival: EMS Limitations: no limitations History of Present Illness ED Provider: DR. Dixon HPI Narrative: 73-year-old male brought in by ambulance for evaluation after had mechanical fall, patient stated that he was at his friend's yd when his legs gave up and fell forward patient tried to ease the fall with his hands but still landed on his face causing superficial nose, left hand and wrist, right forearm. Patient declined LOC. Patient with history liver cirrhosis and alcohol use decline drinking alcohol today however patient smell alcohol on breath. Not on AC. Related Data Home Medications ?Medication ?Instructions ?Recorded ?Confirmed amlodipine 5 mg tablet 1.5 tab PO DAILY 10/29/22 10/30/22 ixekizumab 80 mg/mL subcutaneous 80 mg subcut Q28D 10/29/22 10/30/22 auto-injector (Taltz Autoinjector) spironolactone 50 mg tablet 1 tab PO BID 10/29/22 10/30/22 Previous Rx's ?Medication ?Instructions ?Recorded folic acid 1 mg tablet 1 mg PO DAILY #30 tabs 11/02/22 thiamine HCl (vitamin B1) 100 mg 100 mg PO DAILY #30 tabs 11/02/22 tablet Allergies Allergy/AdvReac Type Severity Reaction Status Date / Time No Known Allergies Allergy Verified 07/11/24 19:47 Review of Systems 2 Review of Systems: All other systems are reviewed and are negative Constitutional: Reports as per HPI and Reports no additional constitutional complaints Eyes: Reports as per HPI and Reports no additional eye complaints Reports system reviewed and no additional complaints, except as documented Cardiovascular: Reports as per HPI and Reports no additional cardiovascular complaints Respiratory: Reports as per HPI and Reports no additional respiratory complaints Gastrointestinal: Reports as per HPI and Reports no additional gastrointestinal complaints Genitourinary: Reports no additional female genitourinary complaints Musculoskeletal: Reports no additional musculoskeletal complaints Skin/Breast: Reports system reviewed and no additional complaints, except as docu Psychiatric: Reports no additional psychiatric complaints Endocrine: Reports no additional endocrine complaints Hematologic/Lymphatic: Reports no additional hematologic/lymphatic complaints Allergic/Immunologic: Reports no additional allergic/immunologic complaints Reports system reviewed and no additional complaints, except as documented and Reports Abnormal speech present [facility] Past Medical History Medical History Alcohol abuse Cirrhosis Social History Social History Household Members: Spouse Housing: House Do you presently have visiting nurse or other home services: No Unable to assess alcohol history related to: Unknown Alcohol intake: current Alcohol intake frequency: a few times a week Alcohol type: hard liquor Patient Tobacco Use Status: Never used Tobacco Smoked in Last 30 Days: No Use of substances other than those prescribed or required for medical reasons: No Advance Directives: Yes Advance Directives Information Provided: No Advance Directives on File: No Advance Directives Date on File: 10/29/22 service: No Physical Exam 2 Vital Signs: Vital Signs: Last Vital Signs Temp 98.3 F 07/11/24 21:48 Pulse 82 07/11/24 21:48 Resp 16 07/11/24 21:48 BP 127/72 07/11/24 21:48 Pulse Ox 96 07/11/24 21:48 O2 Del Method Room Air 07/11/24 21:48 BMI result Body Mass Index 23.4 Vital signs have been reviewed and appear to be correct. Blood pressure elevated. Heart rate normal. Respiratory rate normal. Temperature normal. Oxygen saturation normal. Appearance: Alert. Oriented X3. No acute distress. Head: Normal external exam. Normocephalic. Superficial abrasion on the nose No Krause signs noted. No raccoon eyes noted Eyes: PERRLA. EOMI. Conjunctiva and sclera normal. Eyelids normal. ENT: TM's Normal. Pharynx normal. Uvula midline. Moist mucous membranes. No trismus noted. No drooling noted. No muffled voice noted. Neck: Normal inspection. Neck supple. FROM. No adenopathy. Thyroid Normal. No meningeal signs. No neck mass noted. CVS: Normal heart rate and rhythm. Heart sound normal. No murmurs noted. Pulses normal throughout. Respiratory: No respiratory distress. Painless inspiration. Breath sounds normal. No wheezes/rales/rhonchi noted. Chest nontender. No accessory muscle usage noted or decreased air movement noted. Abdomen: Soft and nontender. Bowel sounds normal in all 4 quadrants. No distention noted. No organomegaly noted. No visible injury noted. Back: No CVA tenderness. Full range of motion noted. Skin: Skin warm and dry. Normal skin color. Normal skin turgor. No rashes/lesions/lacerations noted. Extremities: Left upper extremities with superficial skin tear on hand and wrist with no deformity. Right forearm shows small skin tear with no active bleeding. Neuro: Oriented X 3. Cranial nerve exam: II-XII are grossly intact No motor deficit. No sensory deficit. Reflexes normal. Course Reevaluation(s) Reevaluation #1: Patient is AAO x3 GCS 15, complaining of no neck pain, neuro exam is in with no weakness or numbness, patient is intoxicated with alcohol level of 357, CT head unremarkable for intracranial bleed, patient has acute C4/C6 displaced fracture of the vertebral body with no compromise neuro canal. Will transfer the patient to [facility] for further trauma evaluation will arrange transportation. Case discussed with Dr. Ocasio trauma surgeon at [facility]. Time: 22:36 Medications Administered Discontinued Medications Generic Name Dose Route Start Last Admin Trade Name Freq PRN Reason Stop Dose Admin Bacitracin 1 appl 07/11/24 19:56 07/11/24 20:03 Bacitracin Oint 0.9 Gm Packet TOPICAL 07/11/24 19:57 1 appl ONCE ONE Administration Protocol Diphtheria/Tetanus/Acell Pertussis 0.5 ml 07/11/24 19:36 07/11/24 20:03 Diphth,Pertus(Acell),Tet Adult 0.5 Ml Syringe IM 07/11/24 19:37 0.5 ml .ONCE ONE Administration Medical Decision Making Differential Diagnosis Differential Diagnoses: The differential diagnosis associated with the presentation includes (Alcohol intoxication, intracranial bleed, cervical spine injury, neurological deficit, electrolyte derangement, extremities injury, chest injury, abdominal injury.) Admission/Observation Consideration of admission/observation: Escalation of care including admission/observation considered Consult Healthcare Provider Management of the patient was discussed with: Turning Machine Operator (Dr. Ocasio trauma surgeon at [facility].) Lab Data MDM Lab Attestation statement: I reviewed the patient's lab results. 07/11/24 19:59 07/11/24 19:59 Labs: Lab Results 07/11/24 Range/Units 19:59 WBC 5.1 (4.8-10.8) X10*3/uL RBC 3.28 L (4.60-5.80) X10*6/uL Hgb 10.3 L (14.0-18.0) g/dl Hct 29.7 L (42.0-52.0) % MCV 90.5 (80.0-98.0) fL MCH 31.4 (27.0-33.0) pg MCHC 34.7 (31.0-36.0) g/dl RDW 14.8 (11.0-16.0) % Plt Count 237 D (160-400) X10*3/uL MPV 9.3 L (9.4-12.4) fL Immature Gran % (Auto) 0.2 (0.0-0.4) % Neut % (Auto) 58.4 (45-73) % Lymph % (Auto) 21.6 (20-40) % [place] % (Auto) 14.6 H (2-11) % Eos % (Auto) 3.3 (0-4) % Baso % (Auto) 1.9 (0-2) % Lymph # (Auto) 1.1 L (1.2-4.9) X10*3/uL [place] # (Auto) 0.8 (0.1-1.2) X10*3/uL Eos # (Auto) 0.2 (0.0-0.4) X10*3/uL Baso # (Auto) 0.1 (0.0-0.2) X10*3/uL Abs Immat Gran (auto) 0.01 (0.00-0.03) X10*3/uL Absolute Neuts (auto) 3.0 (2.0-8.3) x10*3/uL Absolute Nucleated RBC 0.000 (0.0-0.012) X10*3/uL Nucleated RBC % (auto) 0.0 (0.0-0.2) /100WBC Sodium 135 (135-145) mmol/L Potassium 4.1 (3.3-5.1) mmol/L Chloride 104 (96-108) mmol/L Carbon Dioxide 25 (22-29) mmol/L Anion Gap 10 L (12-20) BUN 10 (9-16) mg/dL Creatinine 0.83 (0.5-1.4) mg/dL Estim Creat Clear Calc 86.9 Estimated GFR > 60 Random Glucose 122 H (60-115) mg/dL Calcium 9.1 (8.4-10.2) mg/dL Troponin I High Sens < 2.7 (<3.5-35.0) ng/L Ethyl Alcohol 357 H* mg/dL Independent Interpretation I performed an independent interpretation of an: CT Scan (Head and neck:1. No evidence of acute intracranial hemorrhage or edematous territorial infarction. Moderate underlying microangiopathy and generalized cerebral volume loss. 2. Mildly displaced fractures of the anterior-inferior corner of C4 and anterior- superior corner of C6. Mild prevertebral) Radiology Impression Discussion of test interpretation with radiology: I have reviewed the radiologist's reading. Chronic Conditions Patient?s care impacted by: Other (Chronic alcohol abuse.) Critical Care Time Critical Care Time Critical Care Time: Yes Total Critical Care Time: 60 Attestation: The patient was critically ill with a high probability of imminent or life- threatening deterioration. I spent greater than 30 minutes of discontinuous time evaluating the patient, delivering critical care at the bedside, discussing evaluating data with consultants. Critical care time does not include time spent performing separately billable procedures or teaching. Time spent performing critical care was 60 minutes. Discharge Plan Discharge Clinical Impression: Alcohol intoxication, Closed cervical spine fracture, Fall Patient Disposition: [facility] Hospital Transfer Details: [facility] ED. Prescriptions: No Action amlodipine 5 mg tablet 1.5 tab PO DAILY spironolactone 50 mg tablet 1 tab PO BID Taltz Autoinjector 80 mg/mL auto-injector 80 mg subcut Q28D thiamine HCl (vitamin B1) 100 mg tablet 100 mg PO DAILY Qty: 30 0RF folic acid 1 mg tablet 1 mg PO DAILY Qty: 30 0RF Print Language: Arabic
--- NOTE | 2024-07-11 19:36 | ECG_ITS ---
Test Reason : FALL Blood Pressure : / mmHG Vent. Rate : 089 BPM Atrial Rate : 089 BPM P-R Int : 152 ms QRS Dur : 068 ms QT Int : 356 ms P-R-T Axes : 000 008 031 degrees QTc Int : 433 ms Normal sinus rhythm Low voltage QRS Borderline ECG When compared with ECG of 29-OCT-2022 06:36, No significant change was found Referred By: Gerardo Dixon Electronically Signed By:WILY JENNINGS
[2024-07-11 20:03] LABS: MANUAL DIFF FLAG NO
[2024-07-11] MEDS: Bacitracin Oint 0.9 GM PACKET 1 APPL TOPICAL (20:03)
[2024-07-11] MEDS: Diphth,Pertus(ACell),Tet Adult 0.5 ML SYRINGE IM (20:03)
[2024-07-11 20:19] LABS: Anion Gap 10 (12-20); Blood Urea Nitrogen 10 mg/dL (9-16); Calcium 9.1 mg/dL (8.4-10.2); Carbon Dioxide 25 mmol/L (22-29); Chloride 104 mmol/L (96-108); Creatinine Clr Calc Pharmacy 86.9; Estimated Glomerular Filt Rate > 60; Ethanol 357 mg/dL; Glucose Random 122 mg/dL (60-115); Potassium 4.1 mmol/L (3.3-5.1); Sodium 135 mmol/L (135-145)
[2024-07-11 20:28] LABS: Troponin-I High Sensitivity < 2.7 ng/L (<3.5-35.0)
[2024-07-11 20:40] LABS: Basophils Absolute Auto 0.1 X10*3/uL (0.0-0.2); Basophils Percent Auto 1.9 % (0-2); Eosinophils Absolute Auto 0.2 X10*3/uL (0.0-0.4); Eosinophils Percent Auto 3.3 % (0-4); Hematocrit 29.7 % (42.0-52.0); Hemoglobin 10.3 g/dl (14.0-18.0); Imm Gran Abs Auto 0.01 X10*3/uL (0.00-0.03); Imm Gran Pct Auto 0.2 % (0.0-0.4); Lymphocytes Absolute Auto 1.1 X10*3/uL (1.2-4.9); Lymphocytes Percent Auto 21.6 % (20-40); Mean Corpuscular HGB Conc 34.7 g/dl (31.0-36.0); Mean Corpuscular Hemoglobin 31.4 pg (27.0-33.0); Mean Corpuscular Volume 90.5 fL (80.0-98.0); Mean Platelet Volume 9.3 fL (9.4-12.4); Monocytes Absolute Auto 0.8 X10*3/uL (0.1-1.2); Monocytes Percent Auto 14.6 % (2-11); Neutrophils Percent Auto 58.4 % (45-73); Platelet Count 237 X10*3/uL (160-400); Red Blood Count 3.28 X10*6/uL (4.60-5.80); Red Cell Distribution Width 14.8 % (11.0-16.0); White Blood Count 5.1 X10*3/uL (4.8-10.8)
[2024-07-11 21:48] VITALS: BP 127/72; PULSE 82; RESP 16; TEMP 36.8; O2SAT 96
[2024-07-11 23:16] VITALS: BP 122/68; PULSE 79; RESP 16; TEMP 36.7; O2SAT 96
--- OUTSIDE RECORDS SUMMARY | 2024-07-14 00:02 | XMS_ITS | Continuity of Care Document ---
Author Organization [facility] Address [address] [place] [address]- Care Team Providers Care Organizational Effectiveness Consultant Name Role Phone Jeff FLOYD, Ashutosh Delcid Primary Care Physician Encounter [facility] Date(s): 02/27/23 - 03/29/23 [facility] [address] [place] [id number]- [place] Allergies, Adverse Reactions, Alerts No Known Allergies Immunizations Given and Recorded Vaccine Date Status Refusal Reason SARS-CoV-2 (COVID-19) mRNA BNT-162b2 vac 02/20/21 Given SARS-CoV-2 (COVID-19) mRNA BNT-162b2 vac 01/30/21 Given Medications folic acid 1 mg oral tablet 1 mg, 1, tablet, By Mouth, Daily, # 30 tablet, Refills 0, Tot. Refills 0, Maintenance, 11/24/19 12:16:00 EST, Route to Pharmacy Electronically, [facility], 180, cm, 11/22/19 6:10:00 EST, Height, 77, kg, 11/20/19 3:52:00 EST, Dry Weight Start Date: 11/24/19 Status: Ordered Lasix 40 mg oral tablet 40 mg, 1, tablet, By Mouth, Every other day, # 30 tablet, Refills 0, Maintenance, 11/19/19 20:09:00EST Start Date: 11/19/19 Status: Ordered multivitamin Multiple Vitamins oral tablet, chewable 1 tablet, By Mouth, Daily, # 90 tablet, 0 Refills, Maintenance, 11/24/19 12:16:00 EST, Chew Tablet,[facility], 1 tablet By Mouth Daily, 180, cm, 11/22/19 6:10:00 EST, Height, 77, kg, 11/20/19 3:52:00 EST, Dry Weight Start Date: 11/24/19 Status: Ordered pantoprazole 40 mg oral delayed release tablet = 40 mg, By Mouth, 2 times a day, # 60 tablet, 0 Refills, Maintenance, 11/24/19 12:16:00 EST, EC Tablet, 180, cm, 11/22/19 6:10:00 EST, Height, 77, kg, 11/20/19 3:52:00 EST, Dry Weight Start Date: 11/24/19 Status: Ordered Taltz Autoinjector 80 mg/mL subcutaneous solution = 160 mg, Subcutaneous Injection, Once, # 2 mL, 0 Refills, Maintenance, 11/19/19 20:09:00 EST, Solution Start Date: 11/19/19 Status: Ordered thiamine 100 mg oral tablet 100 mg, 1, tablet, By Mouth, Daily, # 90 tablet, Refills 0, Tot. Refills 0, Maintenance, 11/24/19 12:16:00 EST, Route to Pharmacy Electronically, [facility], 180, cm, 11/22/19 6:10:00 EST, Height, 77, kg, 11/20/19 3:52:00 EST, Dry Weight Start Date: 11/24/19 Status: Ordered Patient Care team information Care Team Personnel Name: Gold Rivero RN Position: [facility] ED RN W/OE and Tasks Member Role: Primary Care Nurse Name: Merari Bonds RN Position: [facility] RN Member Role: Primary Care Nurse Name: Sybil Pierre RN Position: [facility] RN Member Role: Primary Care Nurse Name: Ashutosh Aguilar MD Position: [facility] Outreach Member Role: PCP Address: Address: [address] [place] [id number]- Care Team Related Persons Name: CORNELIUSREFUGIO Address: home [address] [place] [address]
--- OUTSIDE RECORDS SUMMARY | 2024-07-14 00:02 | XMS_ITS | Continuity of Care Document ---
Author Organization [facility] ter Address [address] [place] [id number]- Care Team Providers Care Corporate Safety Director Name Role Phone Jeff FLOYD, Ashutosh Delcid Primary Care Physician [phone] Encounter [facility] Date(s): 05/12/23 - 05/12/[address] [address]- Discharge Disposition: A-D/C Home Attending Physician: Chang Montgomery MD Admitting Physician: Chang Montgomery MD Referring Physician: Chang Montgomery MD Allergies, Adverse Reactions, Alerts No Known Allergies Immunizations Given and Recorded Vaccine Date Status Refusal Reason SARS-CoV-2 (COVID-19) mRNA BNT-162b2 vac 02/20/21 Given SARS-CoV-2 (COVID-19) mRNA BNT-162b2 vac 01/30/21 Given Medications Amlodipine By Mouth, Daily, 0 Refills, Maintenance, 04/04/23 10:29:00 EDT, Partial fill upon patient request if the prescription is for a schedule II opioid drug. Start Date: 04/04/23 Status: Ordered multivitamin Multiple Vitamins oral tablet, chewable 1 tablet, By Mouth, Daily, # 90 tablet, 0 Refills, Maintenance, 11/24/19 12:16:00 EST, Chew Tablet,[facility], 1 tablet By Mouth Daily, 180, cm, 11/22/19 6:10:00 EST, Height, 77, kg, 11/20/19 3:52:00 EST, Dry Weight Start Date: 11/24/19 Status: Ordered Nadolol By Mouth, Daily, Refills 0, Maintenance, 04/04/23 10:29:00 EDT, Partial fill upon patient request if the prescription is for a schedule II opioid drug. Start Date: 04/04/23 Status: Ordered Spironolactone By Mouth, 0 Refills, Maintenance, 04/04/23 10:29:00 EDT, Partial fill upon patient request if the prescription is for a schedule II opioid drug. Start Date: 04/04/23 Status: Ordered Taltz Autoinjector = 80 mg, Subcutaneous Infusion, Once, 0 Refills, Maintenance, 04/04/23 10:29:00 EDT, Partial fill upon patient request if the prescription is for a schedule II opioid drug. Start Date: 04/04/23 Status: Ordered Taltz Autoinjector 80 mg/mL subcutaneous solution = 160 mg, Subcutaneous Injection, Once, # 2 mL, 0 Refills, Maintenance, 11/19/19 20:09:00 EST, Solution Start Date: 11/19/19 Status: Ordered thiamine 100 mg oral tablet 100 mg, 1, tablet, By Mouth, Daily, # 90 tablet, Refills 0, Tot. Refills 0, Maintenance, 11/24/19 12:16:00 EST, Route to Pharmacy Electronically, [facility] 3, 180, cm, 11/22/19 6:10:00 EST, Height, 77, kg, 11/20/19 3:52:00 EST, Dry Weight Start Date: 11/24/19 Status: Ordered Vital Signs Most recent to oldest [Reference Range]: 1 2 3 Height 183 cm (05/12/23 1:03 PM) Oxygen Saturation [94-100 %] 98 % (05/12/23 5:05 PM) 97 % (05/12/23 4:45 PM) 97 % (05/12/23 4:35 PM) Pulse Rate [55-90 bpm] 63 bpm (05/12/23 1:03 PM) Blood Pressure [90-138/55-84 mm Hg] 141/76mm Hg *H* (05/12/23 5:05 PM) 133/76mm Hg (05/12/23 4:45 PM) 133/80mm Hg (05/12/23 4:35 PM) Respiratory Rate [16-30 br/min] 15 br/min *L* (05/12/23 5:05 PM) 12 br/min *L* (05/12/23 4:45 PM) 12 br/min *L* (05/12/23 4:35 PM) Temperature [96.8-100.4 DegF] 96.9 DegF (05/12/23 4:24 PM) Mode of Delivery (Oxygen) Room air (05/12/23 5:05 PM) Room air (05/12/23 4:45 PM) Room air (05/12/23 4:35 PM) Blood pressure sites Arm, left (05/12/23 5:05 PM) Arm, left (05/12/23 4:45 PM) Arm, left (05/12/23 4:35 PM) Temperature Route Temporal (05/12/23 4:24 PM) Temporal (05/12/23 1:03 PM) Dry Weight 77 kg (05/12/23 1:03 PM) Note * Merari Styles RN: PERFORM Event Display: Discharge/Transfer Note Hospital Authored Date: [id number] Nursing Discharge Note Entered On: 05/12/2023 16:45 EDT Performed On: 05/12/2023 16:45 EDT by Merari Styles RN Nursing Discharge Note 2 Discharge Time : 05/12/2023 17:20 EDT Merari Styles RN - 05/12/2023 17:23 EDT Discharge Level of Care at Discharge : Home/Nursing Home/Foster Care Patient Left Unit Via : Wheelchair Patient Accompanied Off Unit with : Responsible adult DC Instructions Provided & Signed by Pt : Yes Patient Understands D/C Instructions : Yes Patient Instructions Discharge Signed : Yes Did Pt have Specialty Bed or Wound Vac : No Merari Styles RN - 05/12/2023 16:45 EDT * Merari Styles RN: PERFORM Event Display: Patient Education/Instruction Authored Date: [id number] Inpatient Adult Discharge Instructions [address] [address] Name: TESS SHIELDS : 1950 Visit: 05/12/2023 12:19:00 Current Date: 05/12/2023 16:45 Account: [id number] Inpatient Adult Discharge Instructions We would like to thank you for allowing us to assist you with your healthcare needs. The following includes patient education materials and information regarding your injury/illness. Our entire staffstrives to provide an excellent experience for our patients and their families. PLEASE ENSURE YOU FOLLOW-UP PER THE INSTRUCTIONS BELOW! ?? YOUR OPINION IS IMPORTANT TO US! Please complete the survey you may receive by mail or email. Your feedback will be used to make improvements to the healthcare experiences of our patients and their families. Surveys are administered by [employer] ?? If further treatment with your primary care physician or another doctor is recommended, it is important for you to keep the appointment. Call your primary care physician or return to the Emergency Department immediately if your condition worsens, fails to improve, or new symptoms develop. If you need to find a doctor, you can call [facility] for a referral at [phone] or toll free at [phone] or log in to [email or web address].. ?? You can view and manage your care through the patient portal or by using a health care paul of your choosing. [employer] is a website that allows you to securely view your medical information including your hospital discharge summary, office visit summaries, medications and follow-up visits. You can also request appointments, renew medications, and request access to your medical information using a health care paul of your choosing, or just ask a question. You can enroll at [email or web address] or register during your next office visit. You have been discharged from [facility], Patient Care Unit: ENDO. If you have any questions regarding these instructions after you leave, please call us and we will be happy to assist you. [facility] Your Care Team Attending Physician Chang Montgomery MD Reason for Admission DUODENAL POLYP Tests Performed Below is a partial list of the tests performed during your hospitalization. You may have had other tests and procedures not included in this list. Please discuss all test results with your provider. Primary Care Provider Jeff FLOYD , Ashutosh Delcid Advance Directive Health Care Proxy on File No Patient refuses to discuss Discharge Vitals Pulse Rate: 63 bpm Height: 183 cm Respiratory Rate:??12 br/min??Low ?? Systolic Blood Pressure: 133 mm Hg ?? Diastolic Blood Pressure: 80 mm Hg ?? Oxygen Saturation: 97 % ?? Studies Pending All tests and labs ordered during this hospital stay have been completed unless listed below. Please discuss all pending results with your provider listed above in these instructions. ?? No incomplete studies found What to do next Instructions From Your Doctor Discharge Orders Scheduled Follow-Up Appointments Monday 9:30 AM EDT ?? With: Chang Montgomery MD Where: [facility] [address] [place] [address]- Status: Pending You Need to Schedule the Following Appointments Follow Up with??As Needed Discharge Medications TESS SHIELDS :1950 Visit Date:05/12/2023 Medications: Please continue your medications until treatment is completed or stopped by your provider. Medications not listed below should be discontinued. Discuss any questions related to medications with your provider. What How Much When Instructions Next Dose Unchanged Amlodipine Oral Daily Unchanged ixekizumab (Taltz Autoinjector 80 mg/ mL subcutaneous solution) 160 Milligram Subcutaneous Injection Once Unchanged ixekizumab (Taltz Autoinjector) 80 Milligram Subcutaneous Infusion Once Unchanged Multivitamin (multivitamin Multiple Vitamins oral tablet, chewable) 1 tab(s) Oral Daily Unchanged Nadolol Oral Daily Unchanged Spironolactone Oral Unchanged Thiamine (thiamine 100 mg oral tablet) 1 tab(s) Oral Daily Test Results Below is a partial list of the most recent Laboratory test results done prior to this discharge. You may have had other tests and procedures not included in this list. Please discuss all test resultswith your provider. Allergies (NKA means No Known Allergies) NKA Problems No qualifying data available Education Materials Below is the list of Educational Leaflet Providered with your Discharge Instructions. Surgery Medical Daystay Surgical Overnight Discharge Instructions?? Esophageal Varices?? Valuables and Belongings I fully understand and agree that [facility] accepts no responsibility for all my personal property including clothing, toilet articles, radios, jewelry, dentures, hearing aids, rings, money, or any other property that is in my possession or is brought to me after admission. I understand certain valuables may be placed in a hospital safe for a short period of time. I understand that the hospital is not liable for loss or damage due to accident, fire, or other natural occurrence while said property is in the safe. I accept full responsibility for any personal property that I keep with me, and will not hold the hospital responsible in case of loss or disappearance. I acknowledge that i have been encouraged to send valuables and belongings home. ?? Review of Valuable and Belonging List: With patient Date for Pt to Sign Valuables/Belongings: 05/12/23 13:03:00 ?? Valuables & Belongings ?? Clothes Electronic devices Jewelry Monetary Items Personal devices Miscellaneous Medications (Valuables) Valuables at Bedside Pants, Shirt, Shoes, Undergarments ? Valuables Sent Home ? Valuables Sent to Security ? Other Discharge Information ? Case Management Discharge Plan?? Discharge Plan?? Discharge Level of Care at Discharge: Home/Nursing Home/Foster Care ?? Pulmonary Rehab Status?? Pulmonary Rehab Discharge Status?? Respiratory Rate:??12 br/min??Low ? Common Emergency Awareness Tips IS IT A STROKE? Act FAST and Check for these signs: FACE Does the face look uneven? ARM Does one arm drift down? SPEECH Does their speech sound strange? TIME Call at any sign of stroke ?? Heart Attack Signs Chest discomfort: Most heart attacks involve discomfort in the center of the chest and lasts more than a few minutes, or goes away and comes back. It can feel like uncomfortable pressure, squeezing, fullness or pain. Discomfort in upper body: Symptoms can include pain or discomfort in one or both arms, back, neck, jaw or stomach. Shortness of breath: With or without discomfort. Other signs: Breaking out in a cold sweat, nausea, or lightheaded. Remember, MINUTES DO MATTER. If you experience any of these heart attack warning signs, call to get immediate medical attention! ?? Smoking can increase your chances of developing chronic health problems and can cause harmful effects to other family members in your house. If you smoke, you are strongly encouraged to quit. Please call [employer] Link at [phone] or [phone] ([phone]) or log in to [email or web address] for referrals to smoking cessation programs. ?? 163 Suicide & Crisis Lifeline is available 12/06 if you or someone you know needs to find a reason to keep living. By calling 988 you'll be connected to a skilled, trained counselor at a crisis center in your area. INPATIENT DISCHARGE INSTRUCTIONS SIGNATURE PAGE TESS SHIELDS [facility]:[id number] Location:[facility] Registration Date and Time:05/12/2023 12:19 EDT Primary Care Physician: Jeff FLOYD , Ashutosh Delcdi, Attending Physician: Valentina FLOYD, Chang, I TESS SHIELDS, have received the above patient education materials/instructions and have verbalized understanding. If ambulance or transport services are being used I further acknowledge being given a choice of service. ?? If you need to contact me, please call me at this number: . Patient/Car Framer Name: Patient/Car Framer Signature: Relationship to Patient: Witness Name/Signature: Date: * Merari Styles RN: PERFORM Event Display: Patient Education Leaflets Authored Date: [id number] Surgery Medical Daystay Surgical Overnight Discharge Instructions ?? 295 Medical Daystay/Surgical Overnight Discharge Instructions ? Since your coordination and judgment may be altered by medication and/or anesthesia, a responsible adult must drive you home from the hospital. ? If you have received medication for pain or sedation while under our care, you should not drive, operate machinery, drink alcohol, or sign any legal documents for 24 hours.?? You should have someone with you at home tonight. ? Remain at home the day of discharge.?? You may be up and about unless otherwise instructed by your physician. ? You may resume your daily prescription medication schedule.?? Any depressant medication should be avoided for 24 hours unless otherwise instructed by your surgeon or anesthesiologist. ? Call your physician for a follow-up appointment.? If you experience unusual or severe pain not relied by your pain medication, excessive bleedingor drainage, persistent nausea and vomiting, excessive swelling or redness, foul odor from incisionsite or fever over 100.6F, you need to call your physician. ? A follow-up phone call by a nurse will be made the day after your procedure.?? If you have stayed with us over night, you will not be receiving a follow-up phone call. ? Nausea and vomiting are a common side effect of prescription pain medication.?? We recommend that pills are not taken on an empty stomach.?? While taking any prescription pain medication you should not drive or drink alcohol. ? * Merari Styles RN: PERFORM Event Display: Patient Education Leaflets Authored Date: [id number] Esophageal Varices ?? 676 Esophageal Varices ??You must carefully read the Consumer Information Use and Disclaimer below in order to understand and correctly use this information?? The Basics Written by the doctors and editors at [employer]??What are esophageal varices?Esophageal varices are swollen blood vessels in the esophagus, which is the tube that connects the mouth to the stomach (figure 1). Esophageal varices often happen in people with serious liver disease, called cirrhosis. ??What are the symptoms of esophageal varices?Esophageal varices do not causesymptoms until they leak or burst. This causes bleeding, which can be very serious. Signs of bleeding from esophageal varices include:? Vomiting blood ??? Dark-colored or black bowel movements ??? Bloody bowel movements or diarrhea ??? Feeling lightheaded ??? Passing out ??If you have liver disease and get one of more of these symptoms,??call for an ambulance (in the [place] and [place], dial 9-1-1). Do not drive yourself to the hospital or have another person drive you.??Is there a test for esophageal varices?Yes. All people who have cirrhosis should have a test called an upper endoscopy to check for esophageal varices (figure 2).??For an upper endoscopy, thedoctor puts a thin, flexible tube into your mouth down your throat and into your esophagus. The tube (called an endoscope) has a camera and a light on it. This allows the doctor to see inside your esophagus, stomach, and the first part of your intestine.??Sometimes, doctors do an endoscopy using a small capsule with a tiny camera inside. You swallow the capsule while lying on your right side and sip water every 30 seconds. The capsule sends photos of the lining of your esophagus and stomach to a device outside your body. A doctor then looks for any problems in the photos.??If you have cirrhosis, you should have an upper endoscopy every 1 to 3 years. The doctor will check to see if you have new varices or if the ones you have are getting larger.??How are esophageal varices treated?Treatments that can make varices less likely to bleed include:? Taking medicines called beta-blockers ??? These are also used to treat high blood pressure. Examples include propranolol (brand name: Inderal) and nadolol (brand name: Corgard). ??? Losing weight, if you are overweight ??? Avoiding alcohol ??If you have had bleeding from varices or are likely to have bleeding, your doctor can do a procedure during an endoscopy called variceal band ligation. This means that the doctor will place smallrubber bands around the varices to prevent bleeding. You will need to take medicines that lower theamount of acid in your stomach while the varices heal. Your doctor will tell you what medicine to take. Some of the medicines are available over the counter and include:? Omeprazole (sample brand name: Prilosec) ??? Esomeprazole (sample brand name: Nexium) ??? Lansoprazole (sample brand name: Prevacid) ??? Pantoprazole (sample brand name: Protonix) ??Variceal band ligation has to be repeatedevery 2 to 8 weeks until the varices are gone. Rarely, people who have severe bleeding need to havea procedure called a TIPS. For this procedure, a doctor inserts a thin tube through a vein in theneck and places the tube inside the liver. The tube helps blood to flow through the liver more easily. This lowers the blood pressure in the varices and helps stop bleeding.??Can esophageal varices be prevented?Treating the underlying liver disease that caused the cirrhosis might help prevent varices.??All topics are updated as new evidence becomes available and our??peer review process??is complete.This topic retrieved from [employer] on:??Apr 25, 2022.Topic 65011 Version 10.0Release: 30.2.4 - C30.156?2021??[employer] and/or its affiliates.??All rights reserved.Graphic 60800 Version 4.0Consumer Information Use and Disclaimer:This generalized information is a limited summary of diagnosis, treatment, and/or medication information. It is not meant to be comprehensive and should be used as a tool to help the user understand and/or assess potential diagnostic and treatment options. It does NOT include all information about conditions, treatments, medications, side effects, or risks that may apply to a specific patient. It is not intended to be medical advice or a substitute for the medical advice, diagnosis, or treatment of a health care provider based on the health care provider's examination and assessment of a patient's specific and unique circumstances. Patients mustspeak with a health care provider for complete information about their health, medical questions, and treatment options, including any risks or benefits regarding use of medications. This information does not endorse any treatments or medications as safe, effective, or approved for treating a specific patient. [employer] and its affiliates disclaim any warranty or liability relating to this information or the use thereof. The use of this information is governed by the Terms of Use, available at??https://www.[employer].com/en/know/xoctjdud-knvluyfdmrpyh-lpkdq?2021 [employer]. and its affiliates and/or licensors. All rights reserved.Last Updated 04/27/22? Patient Care team information Care Team Personnel Name: Gold Rivero RN Position: [facility] ED RN W/OE and Tasks Member Role: Primary Care Nurse Name: Merari Bonds RN Position: S RN Member Role: Primary Care Nurse Name: Sybil Pierre RN Position: S RN Member Role: Primary Care Nurse Name: Ashutosh Aguilar MD Position: S Outreach Member Role: PCP Address: Address: [address] [place] [address]- Care Team Related Persons Name: REFUGIO SHIELDS Address: home [address] [place] [id number]
--- OUTSIDE RECORDS SUMMARY | 2024-07-14 00:02 | XMS_ITS | Continuity of Care Document ---
Author Organization [facility] ter Address [address] [place] [id number]- Care Team Providers Care Engineering Administrator Name Role Phone Jeff FLOYD, Ashutosh Delcid Primary Care Physician [phone] Encounter [facility] Date(s): 07/07/23 - 07/07/[address] [address]- Discharge Disposition: A-D/C Home Attending Physician: Chang [...] 0 Refills, Maintenance, 11/24/19 12:16:00 EST, Chew Tablet,[facility], 1 tablet By Mouth Daily, 180, cm, 11/22/19 6:10:00 EST, Height, 77, kg, 11/20/19 3:52:00 EST, Dry Weight Start Date: 11/24/19 Status: Ordered Nadolol By Mouth, Daily, Refills 0, Maintenance, 04/04/23 10:29:00 EDT, Partial fill upon patient request if the prescription is for a schedule II opioid drug. Start Date: 04/04/23 Status: Ordered Omeprazole By Mouth, Daily, 0 Refills, Maintenance, 07/07/23 9:09:00 EDT, Partial fill upon patient request ifthe prescription is for a schedule II opioid drug. Start Date: 07/07/23 Status: Ordered Spironolactone By Mouth, 0 Refills, [...] 11/24/19 12:16:00 EST, Route to Pharmacy Electronically, [facility] 3, 180, cm, 11/22/19 6:10:00 EST, Height, 77, kg, 11/20/19 3:52:00 EST, Dry Weight Start Date: 11/24/19 Status: Ordered Vital Signs Most recent to oldest [Reference Range]: 1 2 3 Height 183 cm (07/07/23 8:50 AM) Oxygen Saturation [94-100 %] 98 % (07/07/23 12:30 PM) 96 % (07/07/23 12:15 PM) 95 % (07/07/23 12:00 PM) Pulse Rate [55-90 bpm] 71 bpm (07/07/23 8:50 AM) Blood Pressure [90-138/55-84 mm Hg] 129/70mm Hg (07/07/23 12:30 PM) 138/76mm Hg (07/07/23 12:15 PM) 133/78mm Hg (07/07/23 12:00 PM) Respiratory Rate [16-30 br/min] 16 br/min (07/07/23 12:30 PM) 16 br/min (07/07/23 12:15 PM) 18 br/min (07/07/23 12:00 PM) Temperature [96.8-100.4 DegF] 98.0 DegF (07/07/23 12:30 PM) 97.7 DegF (07/07/23 11:35 AM) 97.5 DegF (07/07/23 8:50 AM) Liters per Minute 6 L/min (07/07/23 11:40 AM) 6 L/min (07/07/23 11:35 AM) Mode of Delivery (Oxygen) Room air (07/07/23 12:30 PM) Room air (07/07/23 12:15 PM) Room air (07/07/23 12:00 PM) Blood pressure sites Arm, right (07/07/23 11:35 AM) Arm, right (07/07/23 8:50 AM) Temperature Route Temporal (07/07/23 11:35 AM) Temporal (07/07/23 8:50 AM) Dry Weight 78.5 kg (07/07/23 8:50 AM) Endoscopy study * Event Display: GG EGD Please click on pdf link to open report * Event Display: GG EGD Please click on pdf link to open report * Chang Montgomery MD: PERFORM Event Display: GG EGD Authored Date: [id number] Duodenum, polyp, mucosal resection: - 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 * Chang Montgomery MD: PERFORM Event Display: GG EGD Authored Date: [id number] Follow up in clinic. Note * Gregory Ya RN: PERFORM Event Display: Discharge/Transfer Note Hospital Authored Date: [id number] Nursing Discharge Note Entered On: 07/07/2023 11:27 EDT Performed On: 07/07/2023 11:27 EDT by Gregory Ya RN Nursing Discharge Note 2 Discharge Time : 07/07/2023 12:55 EDT Gregory Ya RN - 07/07/2023 12:57 EDT Discharge Level of Care at Discharge : Home/Senior Living/Foster Care Patient Left Unit Via : Wheelchair Patient Accompanied Off Unit with : Responsible adult DC Instructions Provided & Signed by Pt : Yes Patient Understands D/C Instructions : Yes Patient Instructions Discharge Signed : Yes Did Pt have Specialty Bed or Wound Vac : No Gregory Ya RN - 07/07/2023 11:27 EDT * Gregory Ya RN: PERFORM, MODIFY Event Display: Patient Education/Instruction Authored Date: [id number] Inpatient Adult Discharge Instructions [address] [address] Name: TESS SHIELDS : 1950 Visit: 07/07/2023 08:32:00 Current Date: 07/07/2023 11:43 Account: [id number] Inpatient Adult Discharge Instructions We would like [...] and their families. Surveys are administered by [employer] ?? If further treatment with your primary care physician or another doctor is recommended, it is important for you to keep the appointment. Call your primary care physician or return to the Emergency Department immediately if your condition worsens, fails to improve, or new symptoms develop. If you need to find a doctor, you can call [facility] for a referral at [phone] or toll free at [phone]) or log in to [email or web address].. ?? You can view and manage your care through the patient portal or by using a health care paul of your choosing. Do[employer] is a website that allows you to securely view your medical information including your hospital discharge summary, office visit summaries, medications and follow-up visits. You can also request appointments, renew medications, and request access to your medical information using a health care paul of your choosing, or just ask a question. You can enroll at [email or web address] or register during your next office visit. You have been discharged from [facility], Patient Care Unit: ENDO. If you have any questions regarding these instructions after you leave, please call us and we will be happy to assist you. [facility] Your Care Team Attending Physician Chang Montgomery MD Discharging Providers Chang Montgomery MD Reason for Admission DUODENAL POLYP, VARICES SURVEILLANCE Tests Performed Below is a partial list of the tests performed during your hospitalization. You may have had other tests and procedures not included in this list. Please discuss all test results with your provider. Primary Care Provider Jeff FLOYD , Ashutosh Delcid Advance Directive Health Care Proxy on File No Patient refuses to discuss Discharge Vitals Temperature: 97.7 DegF Height: 183 cm Pulse Rate: 71 bpm ?? Respiratory Rate:??14 br/min??Low ?? Systolic Blood Pressure:??144 mm Hg??High ?? Diastolic Blood Pressure:??91 mm Hg??High ?? Oxygen Saturation: 98 % ?? Studies Pending All tests and labs ordered during this hospital stay have been completed unless listed below. Please discuss all pending results with your provider listed above in these instructions. ?? No incomplete studies found What to do next Instructions From Your Doctor Discharge Orders Scheduled Follow-Up Appointments Monday 3:00 PM EDT ?? With: Chang Montgomery MD Where: [facility] [address] [place] [address]- Status: Pending You Need to Schedule the Following Appointments Follow Up with??Follow up with PCP as needed Follow Up with??Ashutosh Aguilar MD When:??In 0 days Where: [address] [place] [phone]- Business (1) Discharge Medications TESS SHIELDS :1950 Visit Date:07/07/2023 Medications: Please continue your medications until treatment [...] Oral Daily Unchanged Nadolol Oral Daily Unchanged Omeprazole Oral Daily Unchanged Spironolactone Oral Unchanged Thiamine [...] Educational Leaflet Providered with your Discharge Instructions. Esophageal Varices?? Surgery Medical Daystay Surgical Overnight Discharge Instructions?? Valuables and Belongings I fully understand and agree that [facility] accepts no responsibility for all my personal [...] to send valuables and belongings home. ?? Date for Pt to Sign Valuables/Belongings: 07/07/23 08:53:00 ?? Valuables & Belongings ?? Clothes Electronic devices Jewelry Monetary Items Personal devices Miscellaneous Medications (Valuables) Valuables at Bedside Shirt, Shoes ?? Wedding band ? Valuables Sent Home ? Valuables Sent to Security ? Other Discharge Information ? Case Management Discharge Plan?? Discharge Plan?? Discharge Level of Care at Discharge: Home/Senior Living/Foster Care ?? Pulmonary Rehab Status?? Pulmonary Rehab Discharge Status?? Respiratory Rate:??14 br/min??Low ? Common Emergency Awareness Tips IS [...] are strongly encouraged to quit. Please call [facility]ove Link at [phone] or [phone] or log in to [email or web address] for referrals to smoking cessation programs. ?? 346 Suicide & Crisis Lifeline is available 12/06 if you or someone you know needs to find a reason to keep living. By calling 599 you'll be connected to a skilled, trained counselor at a crisis center in your area. INPATIENT DISCHARGE INSTRUCTIONS SIGNATURE PAGE TESS SHIELDS Location:[facility] Registration Date and Time:07/07/2023 08:32 EDT Primary Care Physician: Jeff FLOYD , Ashutosh Delcid, Attending Physician: Valentina FLOYD, Chang, I TESS SHIELDS, have received the above patient education materials/instructions and have verbalized understanding. If ambulance or transport services are being used I further acknowledge being given a choice of service. ?? If you need to contact me, please call me at this number: . Patient/Supervisor Coke Handling Name: Patient/Supervisor Coke Handling Signature: Relationship to Patient: Witness Name/Signature: Date: * Gregory Ya RN B: PERFORM Event Display: Patient Education/Instruction Authored Date: [id number] Inpatient Adult Discharge Instructions [address] [address] Name: TESS SHIELDS : 1950 Visit: 07/07/2023 08:32:00 Current Date: 07/07/2023 11:28 Account: [id number] Inpatient Adult Discharge Instructions We would like [...] and their families. Surveys are administered by [employer] ?? If further treatment with your primary care physician or another doctor is recommended, it is important for you to keep the appointment. Call your primary care physician or return to the Emergency Department immediately if your condition worsens, fails to improve, or new symptoms develop. If you need to find a doctor, you can call [facility] for a referral at [phone] or toll free at [phone] or log in to [email or web address].. ?? You can view and manage your care through the patient portal or by using a health care paul of your choosing. Dopplr is a website that allows you to securely view your medical information including your hospital discharge summary, office visit summaries, medications and follow-up visits. You can also request appointments, renew medications, and request access to your medical information using a health care paul of your choosing, or just ask a question. You can enroll at [email or web address] or register during your next office visit. You have been discharged from [facility], Patient Care Unit: ENDO. If you have any questions regarding these instructions after you leave, please call us and we will be happy to assist you. [facility] Your Care Team Attending Physician Chang Montgomery MD Discharging Providers Chang Montgomery MD Reason for Admission DUODENAL POLYP, VARICES SURVEILLANCE Tests Performed Below is a partial list of the tests performed during your hospitalization. You may have had other tests and procedures not included in this list. Please discuss all test results with your provider. Primary Care Provider Jeff FLOYD , Ashutosh Delcid Advance Directive Health Care Proxy on File No Patient refuses to discuss Discharge Vitals Temperature: 97.5 DegF Height: 183 cm Pulse Rate: 71 bpm ?? Respiratory Rate: 18 br/min ?? Systolic Blood Pressure: 127 mm Hg ?? Diastolic Blood Pressure: 72 mm Hg ?? Oxygen Saturation: 99 % ?? Studies Pending All tests and labs ordered during this hospital stay have been completed unless listed below. Please discuss all pending results with your provider listed above in these instructions. ?? No incomplete studies found What to do next Instructions From Your Doctor Discharge Orders Scheduled Follow-Up Appointments Monday 3:00 PM EDT ?? With: Chang Montgomery MD Where: [facility] [address] [place] [address]- Status: Pending You Need to Schedule the Following Appointments Follow Up with??Follow up with PCP as needed Follow Up with??Ashutosh Aguilar MD When:??In 0 days Where: [address] [place] [phone]- Business (1) Discharge Medications TESS SHIELDS :1950 Visit Date:07/07/2023 Medications: Please continue your medications until treatment [...] Oral Daily Unchanged Nadolol Oral Daily Unchanged Omeprazole Oral Daily Unchanged Spironolactone Oral Unchanged Thiamine [...] Educational Leaflet Providered with your Discharge Instructions. Valuables and Belongings I fully understand and agree that [facility] accepts no responsibility for all my personal [...] to send valuables and belongings home. ?? Date for Pt to Sign Valuables/Belongings: 07/07/23 08:53:00 ?? Valuables & Belongings ?? Clothes Electronic devices Jewelry Monetary Items Personal devices Miscellaneous Medications (Valuables) Valuables at Bedside Shirt, Shoes ?? Wedding band ? Valuables Sent Home ? Valuables Sent to Security ? Other Discharge Information ? Case Management Discharge Plan?? Discharge Plan?? Discharge Level of Care at Discharge: Home/Senior Living/Foster Care ?? Pulmonary Rehab Status?? Pulmonary Rehab Discharge Status?? Respiratory Rate: 18 br/min ? Common Emergency Awareness Tips IS IT [...] are strongly encouraged to quit. Please call [facility] Link at [phone] or [phone]) or log in to [email or web address] for referrals to smoking cessation programs. ?? 311 Suicide & Crisis Lifeline is available 12/06 if you or someone you know needs to find a reason to keep living. By calling [phone] you'll be connected to a skilled, trained counselor at a crisis center in your area. INPATIENT DISCHARGE INSTRUCTIONS SIGNATURE PAGE TESS SHIELDS Location:[facility] Registration Date and Time:07/07/2023 08:32 EDT Primary Care Physician: Jeff FLOYD , Ashutosh Delcid, Attending Physician: Valentina FLOYD, Chang, I TESS SHIELDS, have received the above patient education materials/instructions and have verbalized understanding. If ambulance or transport services are being used I further acknowledge being given a choice of service. ?? If you need to contact me, please call me at this number: . Patient/Supervisor Coke Handling Name: Patient/Supervisor Coke Handling Signature: Relationship to Patient: Witness Name/Signature: Date: * Gregory Ya RN: PERFORM, SIGN, VERIFY Event Display: Patient Education Handout Authored Date: [id number] * Gregory Ya RN: PERFORM Event Display: Patient Education Leaflets Authored Date: [id number] Esophageal Varices ?? 676 Esophageal Varices ??You must carefully read the Consumer Information Use and Disclaimer below in order to understand and correctly use this information?? The Basics Written by the doctors and editors at [facility]??What are esophageal varices?Esophageal varices are swollen blood [...] our??peer review process??is complete.This topic retrieved from [employer] on:??Apr 25, 2022.Topic 45467 Version 10.0Release: 30.2.4 - C30.156?2021??[employer] and/or its affiliates.??All rights reserved.Graphic 66235 Version 4.0Consumer Information Use and Disclaimer:This generalized [...] or approved for treating a specific patient. [employer] and its affiliates disclaim any warranty or liability relating to this information or the use thereof. The use of this information is governed by the Terms of Use, available at??[email or web address]?2021 [employer] and its affiliates and/or licensors. All rights reserved.Last Updated 04/27/22? * Bhakti ESCOBEDO, Gregory Hodgson: PERFORM Event Display: Patient Education Leaflets Authored Date: [id number] Surgery Medical Daystay Surgical Overnight Discharge Instructions [...] should not drive or drink alcohol. ? Patient Care team information Care Team Personnel Name: Gold Rivero RN Position: [facility] ED RN W/OE and Tasks Member Role: Primary Care Nurse Name: Merari Bonds RN Position: [facility] RN Member Role: Primary Care Nurse Name: Sybil Pierre RN Position: S RN Member Role: Primary Care Nurse Name: Ashutosh Aguilar MD Position: S Outreach Member Role: PCP Address: Address: [address] [place] [address]- Care Team Related Persons Name: REFUGIO SHIELDS Address: home [address] [place] [address]
--- OUTSIDE RECORDS SUMMARY | 2024-07-14 00:02 | XMS_ITS | Continuity of Care Document ---
Author Organization [facility] ter Address [address] [place] [id number]- Care Team Providers Care Keno Writer/Runner Name Role Phone Jeff FLOYD, Ashutosh Delcid Primary Care Physician Encounter [facility] [place] Date(s): 07/01/24 - 07/01/[address] [id number] Discharge Disposition: A-D/C Home Attending Physician: Deborah Elena DO Admitting Physician: Deborah Elena DO Referring Physician: Deborah Elena DO Allergies, Adverse Reactions, Alerts No Known Allergies Immunizations Given and Recorded Vaccine Date Status Refusal Reason SARS-CoV-2 (COVID-19) mRNA BNT-162b2 vac 02/20/21 Given SARS-CoV-2 (COVID-19) mRNA BNT-162b2 vac 01/30/21 Given Medications acamprosate 333 mg oral delayed release tablet 0 Refills, Maintenance, 07/01/24 14:20:00 EDT, Partial fill upon patient request if the prescription is for a schedule II opioid drug. Start Date: 07/01/24 Status: Ordered Amlodipine By Mouth, Daily, 0 Refills, Maintenance, 04/04/23 10:29:00 EDT, Partial fill upon patient request if the prescription is for a schedule II opioid drug. Start Date: 04/04/23 Status: Ordered multivitamin Multiple Vitamins oral tablet, chewable 1 tablet, By Mouth, Daily, # 90 tablet, 0 Refills, Maintenance, 11/24/19 12:16:00 EST, Chew Tablet,[facility], 1 tablet By Mouth Daily, 180, cm, 11/22/19 6:10:00 EST, Height, 77, kg, 11/20/19 3:52:00 EST, Dry Weight Start Date: 11/24/19 Status: Ordered Nadolol By Mouth, Daily, Refills 0, Maintenance, 04/04/23 10:29:00 EDT, Partial fill upon patient request if the prescription is for a schedule II opioid drug. Start Date: 04/04/23 Status: Ordered Omeprazole = 20 mg, By Mouth, 2 times a day, 0 Refills, Maintenance, 07/07/23 9:09:00 EDT, Partial fill upon patient request if the prescription is for a schedule II opioid drug. Start Date: 07/07/23 Stop Date: 05/25/24 Status: Ordered Spironolactone By Mouth, 0 Refills, [...] 11/24/19 12:16:00 EST, Route to Pharmacy Electronically, [facility], 180, cm, 11/22/19 6:10:00 EST, Height, 77, kg, 11/20/19 3:52:00 EST, Dry Weight Start Date: 11/24/19 Status: Ordered Vital Signs Most recent to oldest [Reference Range]: 1 2 3 Height 180 cm (07/01/24 2:30 PM) Weight 76 kg (07/01/24 2:30 PM) Oxygen Saturation [94-100 %] 97 % (07/01/24 4:31 PM) 96 % (07/01/24 4:19 PM) 95 % (07/01/24 4:13 PM) Pulse Rate [55-90 bpm] 79 bpm (07/01/24 2:30 PM) Body Mass Index [18.5-24.99 kg/m2] 23.46 kg/m2 (07/01/24 2:30 PM) Blood Pressure [90-138/55-84 mm Hg] 138/99mm Hg (07/01/24 4:31 PM) 143/98mm Hg *H* (07/01/24 4:19 PM) 133/102mm Hg (07/01/24 4:13 PM) Respiratory Rate [16-30 br/min] 12 br/min *L* (07/01/24 4:31 PM) 10 br/min *L* (07/01/24 4:19 PM) 16 br/min (07/01/24 4:13 PM) Temperature [96.8-100.4 DegF] 96.5 DegF *L* (07/01/24 3:57 PM) 96.6 DegF *L* (07/01/24 2:30 PM) Mode of Delivery (Oxygen) Room air (07/01/24 4:31 PM) Room air (07/01/24 4:19 PM) Room air (07/01/24 4:13 PM) Temperature Route Temporal (07/01/24 3:57 PM) Temporal (07/01/24 2:30 PM) Clinical Note * Event Display: GG EGD Please click on pdf link to open report Note * Ankita Dinh RN: PERFORM Event Display: Discharge/Transfer Note Hospital Authored Date: [id number] Nursing Discharge Note Entered On: 07/01/2024 16:18 EDT Performed On: 07/01/2024 16:18 EDT by Ankita Dinh RN Nursing Discharge Note 2 Discharge Time : 07/01/2024 16:48 EDT Ankita Dinh RN - 07/01/2024 16:48 EDT Discharge Level of Care at Discharge : Home/Jail/Foster Care Patient Left Unit Via : Wheelchair Patient Accompanied Off Unit with : Significant other DC Instructions Provided & Signed by Pt : Yes Patient Understands D/C Instructions : Yes Patient Instructions Discharge Signed : Yes Did Pt have Specialty Bed or Wound Vac : No Ankita Dinh RN - 07/01/2024 16:18 EDT * Ankita Dinh RN: PERFORM Event Display: Patient Education/Instruction Authored Date: Inpatient Adult Discharge Instructions. [address] [address] Name: TESS SHIELDS : 1950?? Visit: 07/01/2024 13:57?? Current Date: 07/01/2024 16:18 ?? Account: [id number]?? Inpatient Adult Discharge Instructions We would like [...] and their families. Surveys are administered by [employer] ?? If further treatment with your primary care physician or another doctor is recommended, it is important for you to keep the appointment. Call your primary care physician or return to the Emergency Department immediately if your condition worsens, fails to improve, or new symptoms develop. If you need to find a doctor, you can call [facility] Link for a referral at [phone] or toll free at [phone]) or log in to [email or web address].. ?? [facility], in keeping with [facility] guidance, no longer requires face masks for staff, patientsor visitors in most situations. Similiar to time spent indoors at other locations, there is the chance that you were exposed to repiratory viruses during your time with us (such as flu or COVID-19). If you develop symptoms concerning for a viral respiratory infection, please seek testing (and treatment if indicated) from your medical provider or home test kit. ?? You can view and manage your care through the patient portal or by using a health care paul of your choosing. [employer] is a website that allows you to securely view your medical information including your hospital discharge summary, office visit summaries, medications and follow-up visits. You can also request appointments, renew medications, and request access to your medical information using a health care paul of your choosing, or just ask a question. You can enroll at [email or web address] or register during your next office visit. You have been discharged from [facility], Patient Care Unit: ENDO??. If you have any questions regarding these instructions, including results of studies pending, afteryou leave, please call us and we will be happy to assist you 12/06. [facility] Nursing Unit Direct Phone Number, for 12/06 contact and results of studies pending ENDO [address] [place] [address] Your Care Team Attending Physician Deborah Elena DO?? Consulting Providers Deborah Elena DO?? Discharging Providers Deborah Elena DO Tests Performed Below is a partial list of the tests performed during your hospitalization. You may have had other tests and procedures not included in this list. Please discuss all test results with your provider. No tests performed during this visit.?? Primary Care Provider Jeff FLOYD , Ashutosh Delcid? Advance Directive Health Care Proxy on File No Patient refuses to discuss Discharge Vitals Temperature:??96.5 DegF??Low Height: 180 cm Pulse Rate: 79 bpm Weight: 76 kg Respiratory Rate: 16 br/min Body Mass Index: 23.46 kg/m2 Systolic Blood Pressure: 133 mm Hg Body surface area: 1.95 Diastolic Blood Pressure:??102 mm Hg??High ?? Oxygen Saturation: 95 % ?? Studies Pending All studies ordered during this hospital stay have been completed unless listed below. Please discuss all pending results with your provider listed above in these instructions. ?? No incomplete studies found?? What to do next Instructions From Your Doctor ?? Orders?? Daystay Protocol, ??07/01/24 14:15:00 EDT?? You Need to Schedule the Following Appointments Follow Up with??As Needed Discharge Medications CORNELIUSHAMLETTESS :1950 Visit Date:07/01/2024 Medications: Please continue your medications until treatment is completed or stopped by your provider. Medications not listed below should be discontinued. Discuss any questions related to medications with your provider. What How Much When Instructions Next Dose Unchanged Acamprosate (acamprosate 333 mg oral delayed release tablet) Unchanged Amlodipine Oral Daily Unchanged ixekizumab (Taltz Autoinjector 80 mg/ mL subcutaneous solution) 160 Milligram Subcutaneous Injection Once Unchanged ixekizumab (Taltz Autoinjector) 80 Milligram Subcutaneous Infusion Once Unchanged Multivitamin (multivitamin Multiple Vitamins oral tablet, chewable) 1 tab(s) Oral Daily Unchanged Nadolol Oral Daily Unchanged Omeprazole 20 Milligram Oral Twice a day Duration: 60 Days Unchanged Spironolactone Oral Unchanged Thiamine (thiamine 100 mg oral tablet) 1 tab(s) Oral Daily Prescription Given During Visit No new medications prescribed at time of discharge.?? Laboratory Results Below is a partial list of [...] Educational Leaflet Providered with your Discharge Instructions. [employer] Patient Education - Hiatal Hernia Discharge Instructions?? [employer] AR [employer] Patient Education - Surgery Medical Daystay Surgical Overnight Discharge Instructions?? [employer] Patient Education - Esophageal Varices?? Valuables and Belongings I fully understand and agree that [facility] accepts no responsibility for all my [...] encouraged to send valuables and belongings home. ? Other Discharge Information ? Case Management Discharge Plan?? Discharge Plan?? Discharge Level of Care at Discharge: Home/Jail/Foster Care ?? Pulmonary Rehab Status?? Pulmonary Rehab Discharge Status?? Respiratory Rate: 16 br/min ? Common Emergency Awareness Tips IS [...] are strongly encouraged to quit. Please call [facility] [employer] Link at [phone] or [phone] ([phone]) or log in to [email or web address] for referrals to smoking cessation programs. ?? 251 Suicide & Crisis Lifeline is available 12/06 if you or someone you know needs to find a reason to keep living. By calling 439 you'll be connected to a skilled, trained counselor at a crisis center in your area. INPATIENT DISCHARGE INSTRUCTIONS SIGNATURE PAGE CORNELIUSTESS Location:[facility] Registration Date and Time:07/01/2024 13:57 EDT Primary Care Physician: Jeff FLOYD , Ashutosh Delcid, Attending Physician: Deborah Elena DO, I TESS SHIELDS, have received the above patient education materials/instructions and have verbalized understanding. If ambulance or transport services are being used I further acknowledge being given a choice of service. ?? If you need to contact me, please call me at this number: . Patient/Poultry Husbandry Teacher Name: Patient/Poultry Husbandry Teacher Signature: Relationship to Patient: Witness Name/Signature: Date: * Ankita Dinh RN: PERFORM Event Display: Patient Education Leaflets Authored Date: [id number] Hiatal Hernia Discharge Instructions ?? 671 ??Hiatal Hernia Discharge Instructions ??You must carefully read the Consumer Information Use and Disclaimer below in order to understand and correctly use this information?? About this topic Hiatal hernia is when part of the stomach is up in the chest. Normally, the stomach sits below the diaphragm, the muscle that divides the chest and abdomen. The diaphragm has a small opening in it tolet the esophagus, or swallowing tube, pass through. With a hiatal hernia, the stomach pushes up through that hole too.?? What care is needed at home? Ask your doctor what you need to do when you go home. Make sure??you ask questions ??? if you do not understand what the doctor says. This way you will know what you need to do. ??? Do not wear tight clothing over your belly. Wear clothes and belts that??are loose around your waist. ??? Raise the head of the bed up 6 to 8 inches (15 to 20 cm) or use a??wedge pillow. This position may keep stomach acid from getting into the esophagus. ?? What follow-up care is needed? Your doctor may ask you to make visits to the office to check on your progress. Be sure to keep these visits.?? What drugs may be needed? The doctor may order drugs to: ??? Lower stomach acid ??? Stop heartburn ??? Help with pain ??? Soften stools ?? Will physical activity be limited? You may have to limit your activity. Talk to the doctor about the right??amount of activity for you. ??? Avoid sports that involve lifting heavy things and bending. This can cause stress on your belly. ??? Avoid straining.??Having trouble passing stool or hard stools may make??your hernia worse. ?? What changes to diet are needed? ??Avoid large, heavy meals. Eat a few small meals throughout the day.Avoid drinking too much with meals.Wait at least 2 to 3 hours after eating before lying down or bending??over.Avoid foods that mayupset the stomach. Some people have an upset??belly after: ??? Coffee ??? [place] fruits and juices ??? Tomato products ??? Hot peppers ??? Fizzy drinks ??? Chocolate ??? Peppermint ??? Fatty foods ??? Beer, wine, and mixed drinks (alcohol) ?? What problems could happen? Lower blood levels of iron ??? No blood flow to hernia ?? What can be done to prevent this health problem? Keep a healthy weight. ??? Lose weight if you are overweight. ??? Avoid smoking. Ask for help if it's hard to quit. ??? Avoid foods that may upset the stomach. ??? Don???t overeat. Eat smallermeals. ??? Try to eat at least 2 to 3 hours before laying down. Avoid eating before sleeping at night. ??? When do I need to call the doctor? Heartburn that is worse when bending over or lying down ??? Swallowing problems ?? Teach Back: Helping You Understand The Teach Back Method helps you understand the information we are giving you. After you talk with the staff, tell them in your own words what you learned. This helps to make sure the staff has described each thing clearly. It also helps to explain things that may have been confusing. Before going home, make sure you can do these:? I can tell you about my condition. ??? I can tell you what changes I need to make with my diet or drugs. ??? I can tell you what I will do if I have more heartburn when I am??bending over or lying down. ?? Where can I learn more? NHS Choiceshttp://www.nhs.uk/conditions/hernia-hiatus/pages/introduction.aspxLast Reviewed Mdeb0555-94-26Zaeclxoz Information Use and Disclaimer:This generalized information is [...] care provider's examination and assessment of a patient???s specific and unique circ umstances. Patients must speak with a health care provider for complete information about their health, medical questions, and treatment options, including any risks or benefits regarding use of medications. This information does not endorse any treatments or medications as safe, effective, or approved for treating a specific patient. [employer] and its affiliates disclaim any warranty or liability relating to this information or the use thereof. The use of this information is governed by the Terms of Use, available at??https://www.[employer].com/en/know/gmswyetj-oouwshvsylmca-omxqaFmmu Updated 01/12/22? * Ankita Dinh RN: PERFORM Event Display: Patient Education Leaflets Authored Date: [id number] Surgery Medical Daystay Surgical Overnight Discharge Instructions [...] not drive or drink alcohol. ? * Fabrizio ESCOBEDO, Ankita: PERFORM Event Display: Patient Education Leaflets Authored Date: [id number] Esophageal Varices ?? 676 Esophageal Varices ??You must carefully read the Consumer Information Use and Disclaimer below in order to understand and correctly use this information?? The Basics Written by the doctors and editors at [facility]??What are esophageal varices?Esophageal varices are swollen blood [...] our??peer review process??is complete.This topic retrieved from [employer] on:??Apr 25, 2022.Topic 57743 Version 10.0Release: 30.2.4 - C30.156?2021??[employer] and/or its affiliates.??All rights reserved.Graphic 77506 Version 4.0Consumer Information Use and Disclaimer:This generalized [...] or approved for treating a specific patient. [employer] and its affiliates disclaim any warranty or liability relating to this information or the use thereof. The use of this information is governed by the Terms of Use, available at??https://www.[employer].com/en/know/yfwnkkqd-fspqdwhnqzaqh-vuuod?2021 [employer]. and its affiliates and/or licensors. All rights reserved.Last Updated 04/27/22? Patient Care team information Care Team Personnel Name: Gold Rivero RN Position: [facility] ED RN W/OE and Tasks Member Role: Primary Care Nurse Name: Merari Bonds RN Position: S RN Member Role: Primary Care Nurse Name: Sybil Whitt RN Position: [facility] RN Member Role: Primary Care Nurse Name: Ashutosh Aguilar MD Position: S Outreach Member Role: PCP Address: Address: [address] [place] [address]- Care Team Related Persons Name: REFUGIO SHIELDS Address: home [address] [place] [address]
--- OUTSIDE RECORDS SUMMARY | 2024-07-14 00:02 | XMS_ITS | Continuity of Care Document ---
Author Organization [facility] Address [address] [place] [address]- Care Team Providers Care Motorsports Technician Name Role Phone Jfef FLOYD, Ashutosh Delcid Primary Care Physician Encounter [facility] [place] Date(s): 01/05/24 - 05/04/24 [facility] [address] [place] [address]- Attending Physician: Chang Montgomery MD Admitting Physician: Chang Montgomery MD Referring Physician: Ashutosh Aguilar MD Allergies, Adverse Reactions, Alerts No Known [...] 0 Refills, Maintenance, 11/24/19 12:16:00 EST, Chew Tablet,[facility], 1 tablet By Mouth [...] 11/24/19 12:16:00 EST, Route to Pharmacy Electronically, [facility] 3, 180, cm, 11/22/19 6:10:00 EST, Height, 77, kg, 11/20/19 3:52:00 EST, Dry Weight Start Date: 11/24/19 Status: Ordered Patient Care team information Care Team Personnel Name: Gold Rivero RN Position: [facility] ED RN W/OE and Tasks Member Role: Primary Care Nurse Name: Cammie ESCOBEDO, Merari Leahy Position: S RN Member Role: Primary Care Nurse Name: Sybil Whitt RN Position: S RN Member Role: Primary Care Nurse Name: Jeff FLOYD , Ashutosh Delcid Position: [facility] Outreach Member Role: PCP Address: Address: [address] [place] [address]- [place] Care Team Related Persons Name: REFUGIO SHIELDS Address: [address] [address]
--- OUTSIDE RECORDS SUMMARY | 2024-07-14 00:02 | XMS_ITS | Continuity of Care Document ---
Author Organization [facility] Address [address] [place] [address]- Care Team Providers Care Desk Top Publisher Name Role Phone Jeff FLOYD, Ashutosh Delcid Primary Care Physician [place] [facility] [id number] Date(s): 11/09/22 - 12/09/22 [facility] [address] [place] [address]- [place] Allergies, Adverse Reactions, Alerts No Known Allergies Immunizations Given and Recorded Vaccine Date Status Refusal Reason SARS-CoV-2 (COVID-19) mRNA BNT-162b2 vac 02/20/21 Given SARS-CoV-2 (COVID-19) mRNA BNT-162b2 vac 01/30/21 Given Medications folic acid 1 mg oral tablet 1 mg, 1, tablet, By Mouth, Daily, # 30 tablet, Refills 0, Tot. Refills 0, Maintenance, 11/24/19 12:16:00 EST, Route to Pharmacy Electronically, [facility], 180, cm, 11/22/19 6:10:00 [...] 0 Refills, Maintenance, 11/24/19 12:16:00 EST, Chew Tablet,[facility], 1 tablet By Mouth [...] 11/24/19 12:16:00 EST, Route to Pharmacy Electronically, [facility] 3, 180, cm, 11/22/19 6:10:00 EST, Height, 77, kg, 11/20/19 3:52:00 EST, Dry Weight Start Date: 11/24/19 Status: Ordered Patient Care team information Care Team Personnel Name: Gold Rivero RN Position: [facility] ED RN W/OE and Tasks Member Role: Primary Care Nurse Name: Merari Bonds RN Position: [facility] RN Member Role: Primary Care Nurse Name: Sybil Pierre RN Position: S RN Member Role: Primary Care Nurse Name: Ashutosh Aguilar MD Position: [facility] Outreach Member Role: PCP Address: Address: [address] [place] [address]- Care Team Related Persons Name: CORNELIUSREFUGIO Address: home [address] [place] [address]
--- OUTSIDE RECORDS SUMMARY | 2024-07-14 00:02 | XMS_ITS | Continuity of Care Document ---
Author Organization [facility] Address [address] [place] [address]- Care Team Providers Care Projects Manager Name Role Phone Jeff FLOYD, Ashutosh Delcid Primary Care Physician [phone] Encounter [facility] [place] Date(s): 04/10/23 - 06/08/23 [facility] [address] [place] [address]- Attending Physician: Chang Montgomery MD Admitting Physician: [...] 0 Refills, Maintenance, 11/24/19 12:16:00 EST, Chew Tablet,[facility], 1 tablet By Mouth [...] 11/24/19 12:16:00 EST, Route to Pharmacy Electronically, [facility], 180, cm, 11/22/19 6:10:00 EST, Height, 77, kg, 11/20/19 3:52:00 EST, Dry Weight Start Date: 11/24/19 Status: Ordered Patient Care team information Care Team Personnel Name: Gold Rivero RN Position: [facility] ED RN W/OE and Tasks Member Role: Primary Care Nurse Name: Merari Bonds RN Position: [facility] RN Member Role: Primary Care Nurse Name: Sybil Pierre RN Position: [facility] RN Member Role: Primary Care Nurse Name: Ashutosh Aguilar MD Position: [facility] Outreach Member Role: PCP Address: Address: [address] [place] [address]- Care Team Related Persons Name: REFUGIO SHIELDS Address: home [address] [place] [address]
--- OUTSIDE RECORDS SUMMARY | 2024-07-14 00:02 | XMS_ITS | Continuity of Care Document ---
Author Organization [facility] Address [address] [place] [address]- Care Team Providers Care Navy Senior Officer Name Role Phone Jeff FLOYD, Ashutosh Delcid Primary Care Physician [place] [facility] [place] Date(s): 07/31/23 - 08/30/23 [facility] [address] [place] [address]- Attending Physician: Marissa Stafford Admitting Physician: AdmMarissa snow Referring Physician: Admtr, ArEdin Allergies, Adverse Reactions, Alerts No Known Allergies [...] 0 Refills, Maintenance, 11/24/19 12:16:00 EST, Chew Tablet,[facility], 1 tablet By Mouth [...] 11/24/19 12:16:00 EST, Route to Pharmacy Electronically, [facility], 180, cm, 11/22/19 6:10:00 EST, Height, 77, kg, 11/20/19 3:52:00 EST, Dry Weight Start Date: 11/24/19 Status: Ordered Patient Care team information Care Team Personnel Name: Gold Rivero RN Position: [facility] ED RN W/OE and Tasks Member Role: Primary Care Nurse Name: Merari Bonds RN Position: S RN Member Role: Primary Care Nurse Name: Sybil Whitt RN Position: S RN Member Role: Primary Care Nurse Name: Jeff FLOYD , Ashutosh Delcid Position: S Outreach Member Role: PCP Address: Address: [address] [place] [address]- Care Team Related Persons Name: REFUGIO SHIELDS Address: home [address] [place] [address]
--- OUTSIDE RECORDS SUMMARY | 2024-07-14 00:02 | XMS_ITS | Continuity of Care Document ---
Author Organization [facility] Address [address] [place] [address]- Care Team Providers Care Land Lease Information Clerk Name Role Phone Jeff FLOYD, Ashutosh Delcid Primary Care Physician Encounter [facility] Date(s): 05/16/23 - 08/30/23 [facility] [address] [place] [address]- Attending Physician: Chang Montgomery MD Admitting Physician: [...] 0 Refills, Maintenance, 11/24/19 12:16:00 EST, Chew Tablet,[facility], 1 tablet By Mouth [...] 11/24/19 12:16:00 EST, Route to Pharmacy Electronically, [facility], 180, cm, 11/22/19 6:10:00 EST, Height, 77, kg, 11/20/19 3:52:00 EST, Dry Weight Start Date: 11/24/19 Status: Ordered Patient Care team information Care Team Personnel Name: Gold Rivero RN Position: [facility] ED RN W/OE and Tasks Member Role: Primary Care Nurse Name: Merari Bonds RN Position: S RN Member Role: Primary Care Nurse Name: Sybil Whitt RN Position: S RN Member Role: Primary Care Nurse Name: Jeff FLOYD , Ashutosh Delcid Position: S Outreach Member Role: PCP Address: Address: [address] [place] [address]- Care Team Related Persons Name: REFUGIO SHIELDS Address: home [address] [place] [phone]
--- OUTSIDE RECORDS SUMMARY | 2024-07-14 00:02 | XMS_ITS | Continuity of Care Document ---
Author Organization [facility] Address [address] [place] [address]- Care Team Providers Care Science Editor Name Role Phone Jeff FLOYD, Ashutosh Delcid Primary Care Physician Encounter [facility] Date(s): 10/04/23 - 11/03/23 [facility] [address] [place] [address]- [place] Allergies, Adverse Reactions, Alerts No Known [...] 0 Refills, Maintenance, 11/24/19 12:16:00 EST, Chew Tablet,[facility], 1 tablet By Mouth Daily, [...] 11/24/19 12:16:00 EST, Route to Pharmacy Electronically, [facility], 180, cm, 11/22/19 6:10:00 EST, Height, 77, kg, 11/20/19 3:52:00 EST, Dry Weight Start Date: 11/24/19 Status: Ordered Patient Care team information Care Team Personnel Name: Gold Rivero RN Position: [facility] ED RN W/OE and Tasks Member Role: Primary Care Nurse Name: Merari Bonds RN Position: [facility] RN Member Role: Primary Care Nurse Name: Sybil Whitt RN Position: [facility] RN Member Role: Primary Care Nurse Name: Ashutosh Aguilar MD Position: [facility] Outreach Member Role: PCP Address: Address: [address] [place] [phone]- Care Team Related Persons Name: REFUGIO SHIELDS Address: home [address] [place] [address]
--- OUTSIDE RECORDS SUMMARY | 2024-07-14 00:02 | XMS_ITS | Continuity of Care Document ---
Author Organization [facility] Address [address] [place] [address]- Care Team Providers Care Cleat Thrower Name Role Phone Jeff FLOYD, Ashutosh Delcid Primary Care Physician Encounter [facility] Date(s): 12/20/23 - 12/20/[address] [place] [address] [address]- Discharge Disposition: A-D/C Home Attending Physician: Chang [...] 0 Refills, Maintenance, 11/24/19 12:16:00 EST, Chew Tablet,[facility], 1 tablet By Mouth [...] 11/24/19 12:16:00 EST, Route to Pharmacy Electronically, [facility], 180, cm, 11/22/19 6:10:00 EST, Height, 77, kg, 11/20/19 3:52:00 EST, Dry Weight Start Date: 11/24/19 Status: Ordered Vital Signs Most recent to oldest [Reference Range]: 1 2 3 Height 183 cm (12/20/23 1:12 PM) Oxygen Saturation [94-100 %] 96 % (12/20/23 4:41 PM) 96 % (12/20/23 4:38 PM) 92 % *L* (12/20/23 4:30 PM) Pulse Rate [55-90 bpm] 75 bpm (12/20/23 1:12 PM) Blood Pressure [90-138/55-84 mm Hg] 114/67mm Hg (12/20/23 4:41 PM) 120/75mm Hg (12/20/23 4:38 PM) 123/79mm Hg (12/20/23 4:30 PM) Respiratory Rate [16-30 br/min] 12 br/min *L* (12/20/23 4:41 PM) 11 br/min *L* (12/20/23 4:38 PM) 11 br/min *L* (12/20/23 4:30 PM) Temperature [96.8-100.4 DegF] 97.7 DegF (12/20/23 3:55 PM) 97.1 DegF (12/20/23 1:12 PM) Liters per Minute 4 L/min (12/20/23 3:55 PM) Mode of Delivery (Oxygen) Room air (12/20/23 4:41 PM) Room air (12/20/23 4:38 PM) Room air (12/20/23 4:30 PM) Blood pressure sites Arm, left (12/20/23 4:41 PM) Arm, left (12/20/23 4:38 PM) Arm, left (12/20/23 4:30 PM) Temperature Route Temporal (12/20/23 3:55 PM) Temporal (12/20/23 1:12 PM) Dry Weight 78.5 kg (12/20/23 1:12 PM) Endoscopy study * Event Display: GG EGD Please click on pdf link to open report Note * Uriah Peng RN: PERFORM Event Display: Discharge/Transfer Note Hospital Authored Date: [id number] Nursing Discharge Note Entered On: 12/20/2023 16:04 EST Performed On: 12/20/2023 16:03 EST by Uriah Peng RN Nursing Discharge Note 2 Discharge Time : 12/20/2023 16:58 EST Nova Eubanks RN - 12/20/2023 17:05 EST Discharge Level of Care at Discharge : Home/Long Term/Foster Care Patient Left Unit Via : Wheelchair Patient Accompanied Off Unit with : Responsible adult DC Instructions Provided & Signed by Pt : Yes Patient Understands D/C Instructions : Yes Patient Instructions Discharge Signed : Yes Did Pt have Specialty Bed or Wound Vac : No Uriah Peng RN - 12/20/2023 16:03 EST * Uriah Peng RN: PERFORM Event Display: Patient Education/Instruction Authored Date: [id number] Surgery Adult Discharge Instructions [address] [place] [address] [address] Name: TESS SHIELDS : 1950?? Visit: 12/20/2023 12:52?? Current Date: 12/20/2023 16:40 ?? Account: [id number]?? Surgery Discharge Instructions We would like to thank [...] and their families. Surveys are administered by [employer] ?? If further treatment with your primary care physician or another doctor is recommended, it is important for you to keep the appointment. Call your primary care physician or return to the Emergency Department immediately if your condition worsens, fails to improve, or new symptoms develop. If you need to find a doctor, you can call [facility] Link for a referral at [phone] or toll free at [phone]) or log in to [email or web address].. ?? [facility], in keeping with [facility] guidance, no longer requires face masks for [...] a health care paul of your choosing. [employer] is a website that allows you to securely view your medical information including your hospital discharge summary, office visit summaries, medications and follow-up visits. You can also request appointments, renew medications, and request access to your medical information using a health care paul of your choosing, or just ask a question. You are entitled to know the individuals who participated in your treatment. This information is available within your medical record and will be provided upon your request. You can enroll at [email or web address] or register d uring your next office visit. You have been discharged from [facility], Patient Care Unit: ENDO??. If you have any questions regarding these instructions after you leave, please call us and we will be happy to assist you. [facility] Your Care Team Attending Physician Chang Montgomery MD?? Discharging Providers Chang Montgomery MD Reason for Admission ESOPHAGEAL VARICES DUODENAL POLYPS Primary Care Provider Ashutosh Aguilar MD? Advance Directive Health Care Proxy on File No What to do next Instructions From Your Doctor ?? Orders?? Daystay Protocol, ??12/20/23 16:30:00 EST?? You Need to Schedule the Following Appointments Follow Up with??follow up with your pcp Follow Up with??Ashutosh Aguilar MD When:??In 0 days Where: [address] [place] [phone] Business (1) Discharge Medications TESS SHIELDS :1950 Visit Date:12/20/2023 Medications: Please continue your medications until treatment is completed or stopped by your provider. You may resume your daily prescription medications. Discuss any questions related to medications with [...] mg oral tablet) 1 tab(s) Oral Daily Allergies (NKA means No Known Allergies) NKA Education Materials Below is the list of Educational Leaflet Providered with your Discharge Instructions. Stomach Polyps?? Surgery Medical Daystay Surgical Overnight Discharge Instructions?? Valuables and Belongings I fully understand and agree that [facility] accepts no responsibility for all my [...] ?? Date for Pt to Sign Valuables/Belongings: 12/20/23 13:12:00 ?? Valuables & Belongings ?? Clothes Electronic devices Jewelry Monetary Items Personal devices Miscellaneous Medications (Valuables) Valuables at Bedside Pants, Shirt, Shoes, Undergarments ? Valuables Sent Home ? Valuables Sent to Security ? Other Discharge Information ? Case Management Discharge Plan?? Discharge Plan?? Discharge Level of Care at Discharge: Home/Long Term/Foster Care ?? Pulmonary Rehab Status?? Pulmonary Rehab Discharge Status?? Respiratory Rate:??11 br/min??Low ? Common Emergency Awareness Tips IS [...] are strongly encouraged to quit. Please call [facility] [employer] Link at [phone] or [phone] ([phone]) or log in to [email or web address] for referrals to smoking cessation programs. ?? The National Suicide Prevention Hotline is available 12/06 if you or someone you know needs to find a reason to keep living. By calling 8-819-928-Myshaadi.in (0412) you'll be connected to a skilled, trained counselor at a crisis center in your area. SURGERY DISCHARGE INSTRUCTIONS SIGNATURE PAGE CORNELIUSHAMLETTESS Location:[facility] Registration Date and Time:12/20/2023 12:52 EST Primary Care Physician: Jeff FLOYD , Ashutosh Delcid, Attending Physician: Valentina FLOYD, Chang, I TESS SHIELDS, have received the above patient education materials/instructions and have verbalized understanding. If ambulance or transport services are being used I further acknowledge being given a choice of service. ?? If you need to contact me, please call me at this number: . Patient/Head Of English Name: Patient/Head Of English Signature: Relationship to Patient: Witness Name/Signature: Date: * Uriah Peng RN: PERFORM, SIGN, VERIFY Event Display: Patient Education Handout Authored Date: * Uriah Peng RN: PERFORM Event Display: Patient Education Leaflets Authored Date: Stomach Polyps ?? 674 ?? Stomach Polyps ??You must carefully read the Consumer Information Use and Disclaimer below in order to understand and correctly use this information?? The Basics Written by the doctors and editors at [facility]??What are stomach polyps?Stomach polyps are tiny growths that form on the inner lining of your stomach. They are also known as gastric polyps. Stomach polyps are most often found when a person has an upper endoscopy for another health reason. An upper endoscopy is a test that lets a doctor look at the lining of the upper digestivetract (figure 1).??Many stomach polyps do not cause any symptoms. But it is important to diagnose and treat them because some polyps can turn into cancer.??What causes stomach polyps?There aredifferent types of stomach polyps. They can be caused by different things. Stomach polyps might:? Be caused by another health condition ??? Examples include H. pylori infection and certain types of gastritis (irritation of the stomach). ??? Form near a sore or hole in the stomach wall ??? These can include peptic ulcers or surgical openings (for example, if a person has a feeding tube). ??? Be related to long- term use of a medicine called a proton pump inhibitor or PPI ??? These medic melissa reduce the amount of acid the stomach makes. ??? Run in families ??? You might be more likely to have stomach polyps if you have family members who also have them. There are specific genes that can run in families that increase the risk of polyps. ??What are the symptoms of stomach polyps?Stomach polyps often cause no symptoms.When symptoms do happen, they can include belly pain, diarrhea, or throwing up. Some people have weight loss orblood in their vomit or bowel movements.??Large stomach polyps can block the opening from the stomach into the small intestine. They can also cause you to feel full without eating a lot of food.??Howare stomach polyps treated?When a doctor finds a stomach polyp, they will check it carefullyand look closely at the area around the polyp. The doctor might do a biopsy, which involves taking a sample of tissue to look at under a microscope. This way they can learn more about the type of polyp and the risk of it becoming cancer. They might also remove the polyp.??Treatment of stomach polyps depends on the number, type, size, and location of the polyps. Other things that might guide treatment include your age and risk for stomach cancer. (Your risk depends on your health, including whether you have gastritis, and whether you have had relatives with cancer.)??Depending on your situation, your doctor might recommend:? Removing the polyp or polyps right away ??? Checking a polyp to see if it changes over time ??? Doing regular tests to look for new polyps ??Depending on what hascaused your polyps, your doctor might recommend other treatment, too. For example, you might need treatment for an H. pylori infection.??In rare cases, stomach polyps can be cancerous. In this case, the doctor might have to remove part or all of your stomach.??Can stomach polyps be prevented?If you have an H. pylori infection, getting treatment can lower your risk of developing new stomachpolyps.??All topics are updated as new evidence becomes available and our??peer review process??is complete.??This topic retrieved from [employer] on:??Apr 25, 2022.Topic 601779 Version 1.0Release: 30.2.4 - C30.156?2021??[employer]. and/or its affiliates.??All rights reserved.Consumer Information Use and Disclaimer:This generalized information is a limited summary of diagnosis, treatment, and/or medication information. It is not meant to be comprehensive and should be used as a tool to helpthe user understand and/or assess potential diagnostic and treatment options. It does NOT include all information about conditions, treatments, medications, side effects, or risks that may apply to aspecific patient. It is not intended to be medical advice or a substitute for the medical advice, diagnosis, or treatment of a health care provider based on the health care provider's examination and assessment of a patient's specific and unique circumstances. Patients must speak with a health careprovider for complete information about their health, medical questions, and treatment options, including any risks or benefits regarding use of medications. This information does not endorse any treatments or medications as safe, effective, or approved for treating a specific patient. [employer] and its affiliates disclaim any warranty or liability relating to this information or the use thereof.The use of this information is governed by the Terms of Use, available at??https://www.[employer]/en/know/kuyfgezn-gvrwoyfmjymnh-xeqln?2021 [employer] and its affiliates and/or licensors. All rights reserved.Last Updated 04/27/22? * Danish ESCOBEDO, Uriah: PERFORM Event Display: Patient Education Leaflets Authored Date: [id number] Surgery Medical Daystay Surgical Overnight Discharge Instructions [...] Team Personnel Name: Gold Rivero RN Position: [facility] ED RN W/OE and Tasks Member Role: Primary Care Nurse Name: Merari Bonds RN Position: S RN Member Role: Primary Care Nurse Name: Sybil Whitt RN Position: S RN Member Role: Primary Care Nurse Name: Ashutosh Aguilar MD Position: S Outreach Member Role: PCP Address: Address: [address] [place] [address]- Care Team Related Persons Name: REFUGIO SHIELDS Address: home [address] [place] [address]
--- OUTSIDE RECORDS SUMMARY | 2024-07-14 00:02 | XMS_ITS | Continuity of Care Document ---
Author Organization [facility] Address [address] [place] [address]- Care Team Providers Care Pilot Steam Yacht Name Role Phone Jeff FLOYD, Ashutosh Delcid Primary Care Physician Encounter [facility] [place] [place] Date(s): 04/04/24 - 05/04/24 [facility] [address] [place] [address]- Attending Physician: Marissa Stafford Admitting Physician: AdmtrMarissa Referring Physician: Admtr, ArEdin Allergies, Adverse Reactions, [...] 0 Refills, Maintenance, 11/24/19 12:16:00 EST, Chew Tablet,[facility], 1 tablet By Mouth [...] 11/24/19 12:16:00 EST, Route to Pharmacy Electronically, [facility] 3, 180, cm, 11/22/19 6:10:00 EST, Height, 77, kg, 11/20/19 3:52:00 EST, Dry Weight Start Date: 11/24/19 Status: Ordered Patient Care team information Care Team Personnel Name: Gold Rivero RN Position: [facility] ED RN W/OE and Tasks Member Role: Primary Care Nurse Name: Merari Bonds RN Position: S RN Member Role: Primary Care Nurse Name: Sybil Whitt RN Position: S RN Member Role: Primary Care Nurse Name: Ashutosh Aguilar MD Position: [facility] Outreach Member Role: PCP Address: Address: [address] [place] [address]- Care Team Related Persons Name: DAX SHIELDSH Address: [address] [address]
--- OUTSIDE RECORDS SUMMARY | 2024-07-14 00:02 | XMS_ITS | Continuity of Care Document ---
Author Organization [facility] ter Address [address] [place] [id number]- Care Team Providers Care Industrial Engineering Professor Name Role Phone Jeff FLOYD, Ashutosh Delcid Primary Care Physician Encounter [facility] Date(s): 03/26/24 - 03/26/[address] [address] Discharge Disposition: A-D/C Home Attending Physician: Chang [...] Route to Pharmacy Electronically, [facility] 3, 180, cm, 11/22/19 6:10:00 EST, Height, 77, kg, 11/20/19 3:52:00 EST, Dry Weight Start Date: 11/24/19 Status: Ordered Vital Signs Most recent to oldest [Reference Range]: 1 2 3 Height 180 cm (03/26/24 9:21 AM) Weight 78 kg (03/26/24 9:21 AM) Oxygen Saturation [94-100 %] 95 % (03/26/24 10:37 AM) 96 % (03/26/24 10:33 AM) 94 % (03/26/24 10:28 AM) Pulse Rate [55-90 bpm] 77 bpm (03/26/24 9:21 AM) Body Mass Index [18.5-24.99 kg/m2] 24.07 kg/m2 (03/26/24 9:21 AM) Blood Pressure [90-138/55-84 mm Hg] 133/82mm Hg (03/26/24 10:37 AM) 127/78mm Hg (03/26/24 10:33 AM) 122/79mm Hg (03/26/24 10:28 AM) Respiratory Rate [16-30 br/min] 14 br/min *L* (03/26/24 10:37 AM) 16 br/min (03/26/24 10:33 AM) 19 br/min (03/26/24 10:28 AM) Temperature [96.8-100.4 DegF] 97.5 DegF (03/26/24 9:21 AM) Liters per Minute 5 L/min (03/26/24 10:18 AM) Mode of Delivery (Oxygen) Room air (03/26/24 10:37 AM) Room air (03/26/24 10:33 AM) Room air (03/26/24 10:28 AM) Temperature Route Temporal (03/26/24 9:21 AM) Clinical Note * Event Display: GG EGD Please click on pdf link to open report Note * Karlie Zhao RN: PERFORM Event Display: Discharge/Transfer Note Hospital Authored Date: [id number] Nursing Discharge Note Entered On: 03/26/2024 10:17 EDT Performed On: 03/26/2024 10:17 EDT by Karlie Zhao RN Nursing Discharge Note 2 Discharge Time : 03/26/2024 11:04 EDT Karlie Zhao RN - 03/26/2024 11:31 EDT Discharge Level of Care at Discharge : Home/Detention/Foster Care Patient Left Unit Via : Wheelchair Patient Accompanied Off Unit with : Responsible adult DC Instructions Provided & Signed by Pt : Yes Patient Understands D/C Instructions : Yes Patient Instructions Discharge Signed : Yes Did Pt have Specialty Bed or Wound Vac : No Karlie Zhao RN - 03/26/2024 10:17 EDT * Karlie Zhao RN: PERFORM Event Display: Patient Education/Instruction Authored Date: [id number] Surgery Adult Discharge Instructions [address] [address] Name: TESS SHIELDS : 1950?? Visit: 03/26/2024 08:25?? Current Date: 03/26/2024 10:22 ?? Account: [id number]?? Surgery Discharge Instructions We would like to [...] and their families. Surveys are administered by [employer] ?? If further treatment with your primary care physician or another doctor is recommended, it is important for you to keep the appointment. Call your primary care physician or return to the Emergency Department immediately if your condition worsens, fails to improve, or new symptoms develop. If you need to find a doctor, you can call [facility] Link for a referral at [phone] or toll free at [phone] or log in to [email or web address].. ?? [facility], in keeping with [facility] guidance, no longer requires face masks for [...] a health care paul of your choosing. [employer] is a website that allows you to [...] upon your request. You can enroll at [email or web address] or register d uring your next office visit. You have been discharged from [facility], Patient Care Unit: ENDO??. If you have any questions regarding these instructions after you leave, please call us and we will be happy to assist you. [facility] Your Care Team Attending Physician Chang Montgomery MD?? Discharging Providers Chang Montgomery MD Reason for Admission VARICES Primary Care Provider Ashutosh Aguilar MD? Advance Directive Health Care Proxy on File No Patient refuses to discuss What to do next Instructions From Your Doctor ?? Orders?? Daystay Protocol, ??03/26/24 9:28:00 EDT?? Scheduled Follow-Up Appointments March. 2023 10:15 AM EDT ?? With: Chang Montgomery MD Where: [facility] [address] [place] [id number]- Status: Pending You Need to Schedule the Following Appointments Follow Up with??Ashutosh Aguilar MD When:??In 0 days Where: [address] [place] [id number]- Business (1) Discharge Medications TESS SHIELDS :1950 Visit Date:03/26/2024 Medications: Please continue your medications until treatment [...] Discharge Instructions. [employer] Patient Education - Surgery Medical Daystay Surgical Overnight Discharge Instructions?? [employer] Patient Education - Esophageal Varices?? Valuables and Belongings I fully understand and agree that [facility] accepts no responsibility for all my personal [...] Plan?? Discharge Level of Care at Discharge: Home/Detention/Foster Care ?? Pulmonary Rehab Status?? Pulmonary Rehab Discharge Status?? Respiratory Rate:??13 br/min??Low ? Common Emergency Awareness Tips IS [...] are strongly encouraged to quit. Please call [facility] Link at [phone] or [phone]) or log in to [email or web address] for referrals to smoking cessation programs. ?? The National Suicide Prevention Hotline is available 12/06 if you or someone you know needs to find a reason to keep living. By calling 9-013-229-umjn ([phone] you'll be connected to a skilled, trained counselor at a crisis center in your area. SURGERY DISCHARGE INSTRUCTIONS SIGNATURE PAGE TESS SHIELDS Location:[facility] Registration Date and Time:03/26/2024 08:25 EDT Primary Care Physician: Jeff FLOYD , Ashutosh Delcid, Attending Physician: Valentina FLOYD, Chang, I TESS SHIELDS, have received the above patient education materials/instructions and have verbalized understanding. If ambulance or transport services are being used I further acknowledge being given a choice of service. ?? If you need to contact me, please call me at this number: . Patient/Online Content Coordinator Name: Patient/Online Content Coordinator Signature: Relationship to Patient: Witness Name/Signature: Date: * Karlie Zhao RN: PERFORM, SIGN, VERIFY Event Display: Patient Education Handout Authored Date: * Karlie Zhao RN: PERFORM Event Display: Patient Education Leaflets Authored Date: Surgery Medical Daystay Surgical Overnight Discharge Instructions [...] not drive or drink alcohol. ? * Karlie Zhao RN: PERFORM Event Display: Patient Education Leaflets Authored Date: [id number] Esophageal Varices ?? 676 Esophageal Varices ??You [...] our??peer review process??is complete.This topic retrieved from [employer] on:??Apr 25, 2022.Topic 80649 Version 10.0Release: 30.2.4 - C30.156?2021??[employer] and/or its affiliates.??All rights reserved.Graphic 56893 Version 4.0Consumer Information Use and Disclaimer:This generalized [...] or approved for treating a specific patient. [employer] and its affiliates disclaim any warranty or liability relating to this information or the use thereof. The use of this information is governed by the Terms of Use, available at??https://www.[employer].com/en/know/badregfd-avmsygqlyxcnk-yzayj?2021 [employer] and its affiliates and/or licensors. All rights reserved.Last Updated 04/27/22? Patient Care team information Care Team Personnel Name: Gold Rivero RN Position: [facility] ED RN W/OE and Tasks Member Role: Primary Care Nurse Name: Merari Bonds RN Position: S RN Member Role: Primary Care Nurse Name: Sybil Whitt RN Position: S RN Member Role: Primary Care Nurse Name: Ashutosh Aguilar MD Position: S Outreach Member Role: PCP Address: Address: [address] [place] [address]- Care Team Related Persons Name: REFUGIO SHIELDS Address: home [address] [place] [address]
== END 2024-07-11 23:18 | disposition short-term general hospital (02) ==
PROVIDERS: Emergency Provider Emergency Medicine; PCP Family Medicine
DX: F10.120 Alcohol abuse with intoxication, uncomplicated (principal); Y90.8 Blood alcohol level of 240 mg/100 ml or more; S12.300A Unspecified displaced fracture of fourth cervical vertebra, initial encounter for closed fracture; S12.500A Unspecified displaced fracture of sixth cervical vertebra, initial encounter for closed fracture; S14.0XXA Concussion and edema of cervical spinal cord, initial encounter; S00.31XA Abrasion of nose, initial encounter; S60.512A Abrasion of left hand, initial encounter; S50.811A Abrasion of right forearm, initial encounter; S60.812A Abrasion of left wrist, initial encounter; W18.39XA Other fall on same level, initial encounter; Y93.89 Activity, other specified; Y92.007 Garden or yard of unspecified non-institutional (private) residence as the place of occurrence of the external cause; Y99.9 Unspecified external cause status; Z23 Encounter for immunization; Z79.899 Other long term (current) drug therapy
CPT/HCPCS: 36415; 70450; 72125; 80048; 80307; 84484; 85025; 90471; 90715; 93005; 99284; 99285

== ENCOUNTER 2024-10-01 17:03 | Emergency (ER) | payer MEDICARE, OTHER, SELFPAY | END 2024-10-01 17:33 | disposition left against medical advice (07) | PROVIDERS: Emergency Provider Emergency Medicine; PCP Family Medicine | DX: Z53.21 Procedure and treatment not carried out due to patient leaving prior to being seen by health care provider (principal) ==